=== PATIENT | male | born 1985 | race Caucasian/White ===

== ENCOUNTER 2020-04-07 20:20 | Inpatient (IN) | payer OTHER, SELFPAY ==
[2020-04-07 20:52] VITALS: BP 130/68; PULSE 84; RESP 20; TEMP 36.4; O2SAT 98; BMI 24.3
[2020-04-07 20:53] VITALS: BP 130/68; PULSE 84; RESP 20; TEMP 36.4; O2SAT 98
--- NOTE | 2020-04-07 21:01 | ED.PSYCH ---
HPI - Psych General Chief Complaint: Psychiatric Symptoms Stated Complaint: CRISIS Time Seen by Provider: 04/07/20 20:59 History of Present Illness HPI Narrative: This is a 34-year-old male who presents with complaints of suicidal ideation and has a plan that when his mother this that he wants to as well . Patient states that 3 days ago he was discharged from detox program for heroin and cocaine and then 24 hours afterwards started becoming depressed about his situation and states he was hearing voices that were verbally abusive to him and telling him to kill himself but states he is not hearing them currently. He says he is very depressed about his situation as well as the fact that his mother is quite ill. He denies any prior suicide attempts and states he has never been admitted or treated for depression. He did start using drugs again and last used 1 hour ago and reports using cocaine as well as heroin. Otherwise, he denies any fevers, chills, nausea, vomiting, abdominal pain, diarrhea, urinary pain / burning/frequency, and denies any shortness of breath, chest pain / palpitations. Related Data Allergies Allergy/AdvReac Type Severity Reaction Status Date / Time No Known Allergies Allergy Verified 04/07/20 21:02 [No Known Allergies*] Review of Systems Review of Systems: Pertinent positives and negatives as stated in HPI 10 point review of systems is otherwise negative. PMFSH Past Medical History Source: nursing notes reviewed Medical History No known health problems Surgical History No history of previous surgery Social History Social History Advance Directives: No Advance Directives Information Provided: No Physical Exam Vital Signs: Vital Signs: Vital Signs Temp Pulse Resp BP Pulse Ox 04/08/20 06:27 97.4 F 51 16 106/38 L 97 04/07/20 23:34 98.6 F 74 16 115/72 96 04/07/20 20:53 97.6 F 84 20 130/68 98 04/07/20 20:52 97.6 F 84 20 130/68 98 Body Mass Index 24.3 VITAL SIGNS: Reviewed. GENERAL: Well developed, well nourished, in no acute distress. HEAD: Normocephalic/ 0.5 cm laceration that is greater than 24 hours. EYES: PERRLA, EOMI intact without pain, no nystagmus/pallor/icterus noted EARS: Ext canals without abnormality, TMs non-bulging and non-erythematous NOSE: Nares patent bilateral OROPHARYNX: no oral lesions noted, posterior pharynx clear and non-erythematous without noted tonsillar enlargement/erythema/exudates NECK: Supple, no adenopathy LUNGS: Normal breath sounds. No adventitious sounds or accessory muscle use. SpO2<98%> CARDIOVASCULAR: Regular rate and rhythm without noted murmurs, no JVD or lower extremity edema. ABDOMEN: Soft, non-tender, non-distended with bowel sounds. No rigidity. No guarding. No palpable masses or hernias noted MUSCULOSKELETAL: No tenderness, deformities, or effusions noted on gross inspection. EXTREMITIES: No cyanosis, clubbing or edema; Right upper extremity: There is a nonhealing exposed area to the dorsal aspect of the wrist and distal forearm that patient has continued to pick at and is missing epidermis. SKIN: Inspection of the skin reveals no rashes, ulcerations, jaundice, pallor, or petechiae. NEUROLOGIC: Alert and oriented x 4. Strength and sensation to light touch were grossly intact x 4. Course Course Course Narrative: This is a 34-year-old male with history and clinical presentation consistent with polysubstance use as well as suicidal ideation and depression. Review of all investigations is negative for any acute findings and patient is medically cleared for further evaluation by crisis. MDM - Psych Restraints Face to Face Assessment: Face to Face Assessment: Current Situation: After assessment of the patient, a review of the pertinent medical record and a discussion with nursing staff, I feel the patient requires a restrain intervention. Reaction To: [] Medical Condition: [] Behavioral State: [] Continued Need: [] Lab Data Result diagrams: 04/07/20 21:17 04/07/20 21:17 Labs: Lab Results 04/07/20 04/07/20 04/07/20 Range/Units 21:17 21:17 21:17 WBC 7.9 (4.8-10.8) X10*3/uL RBC 3.96 L (4.60-5.80) X10*6/uL Hgb 11.2 L (14.0-18.0) g/dl Hct 34.5 L (42-52) % MCV 87.1 (80-98) fL MCH 28.3 (27.0-33.0) pg MCHC 32.5 (31.0-36.0) g/dl RDW 13.6 (11.0-16.0) % Plt Count 178 (160-400) X10*3/uL MPV 11.4 (9.4-12.4) fL Immature Gran % (Auto) 0.3 (0.0-0.4) % Neut % (Auto) 62.8 (45-73) % Lymph % (Auto) 27.1 (20-40) % [place] % (Auto) 6.8 (2-11) % Eos % (Auto) 2.4 (0-4) % Baso % (Auto) 0.6 (0-2) % Lymph # (Auto) 2.2 (1.2-4.9) X10*3/uL [place] # (Auto) 0.5 (0.1-1.2) X10*3/uL Eos # (Auto) 0.2 (0.0-0.4) X10*3/uL Baso # (Auto) 0.1 (0.0-0.2) X10*3/uL Abs Immat Gran (auto) 0.02 (0.00-0.03) X10*3/uL Absolute Neuts (auto) 5.0 (2.0-8.3) X10*3/uL Absolute Nucleated RBC 0.000 (0.0-0.012) X10*3/uL Nucleated RBC % (auto) 0.0 (0.0-0.2) /100WBC Sodium 138 (135-145) mmol/L Potassium 4.4 (3.3-5.1) mmol/l Chloride 100 (96-108) mmol/L Carbon Dioxide 32 H (22-29) mmol/L Anion Gap 10 L (12-20) BUN 16 (9-16) mg/dL Creatinine 1.03 (0.5-1.4) mg/dL Estim Creat Clear Calc 104.3 Estimated GFR > 60 Random Glucose 98 (60-115) mg/dL Calcium 9.1 (8.4-10.2) mg/dL Total Bilirubin 0.4 (0.0-1.0) mg/dL AST 16 (5-37) U/L ALT 19 (0-40) U/L Alkaline Phosphatase 57 (39-117) U/L Total Protein 6.7 (6.5-8.0) g/dL Albumin 4.1 (3.5-5.0) g/dL Urine Color Urine Appearance Urine pH (5.0-8.0) Ur Specific [place] (1.005-1.025) Urine Protein (NEG-TRACE) MG/DL Urine Glucose (UA) (NEG) MG/DL Urine Ketones (NEG) MG/DL Urine Blood (NEG) Urine Nitrite (NEG) Ur Leukocyte Esterase (NEG) Urine Opiates Screen (Not Detect) Ur Barbiturates Screen (Not Detect) Ur Phencyclidine Scrn (Not Detect) Ur Amphetamines Screen (Not Detect) U Benzodiazepines Scrn (Not Detect) Urine Cocaine Screen (Not Detect) U Marijuana (THC) Screen (Not Detect) Ethyl Alcohol < 10 mg/dL 04/07/20 04/07/20 Range/Units 22:25 22:25 WBC (4.8-10.8) X10*3/uL RBC (4.60-5.80) X10*6/uL Hgb (14.0-18.0) g/dl Hct (42-52) % MCV (80-98) fL MCH (27.0-33.0) pg MCHC (31.0-36.0) g/dl RDW (11.0-16.0) % Plt Count (160-400) X10*3/uL MPV (9.4-12.4) fL Immature Gran % (Auto) (0.0-0.4) % Neut % (Auto) (45-73) % Lymph % (Auto) (20-40) % [place] % (Auto) (2-11) % Eos % (Auto) (0-4) % Baso % (Auto) (0-2) % Lymph # (Auto) (1.2-4.9) X10*3/uL [place] # (Auto) (0.1-1.2) X10*3/uL Eos # (Auto) (0.0-0.4) X10*3/uL Baso # (Auto) (0.0-0.2) X10*3/uL Abs Immat Gran (auto) (0.00-0.03) X10*3/uL Absolute Neuts (auto) (2.0-8.3) X10*3/uL Absolute Nucleated RBC (0.0-0.012) X10*3/uL Nucleated RBC % (auto) (0.0-0.2) /100WBC Sodium (135-145) mmol/L Potassium (3.3-5.1) mmol/l Chloride (96-108) mmol/L Carbon Dioxide (22-29) mmol/L Anion Gap (12-20) BUN (9-16) mg/dL Creatinine (0.5-1.4) mg/dL Estim Creat Clear Calc Estimated GFR Random Glucose (60-115) mg/dL Calcium (8.4-10.2) mg/dL Total Bilirubin (0.0-1.0) mg/dL AST (5-37) U/L ALT (0-40) U/L Alkaline Phosphatase (39-117) U/L Total Protein (6.5-8.0) g/dL Albumin (3.5-5.0) g/dL Urine Color YELLOW Urine Appearance CLEAR Urine pH 6.0 (5.0-8.0) Ur Specific [place] 1.020 (1.005-1.025) Urine Protein NEG (NEG-TRACE) MG/DL Urine Glucose (UA) NEG (NEG) MG/DL Urine Ketones NEG (NEG) MG/DL Urine Blood NEG (NEG) Urine Nitrite NEG (NEG) Ur Leukocyte Esterase NEG (NEG) Urine Opiates Screen POSITIVE H (Not Detect) Ur Barbiturates Screen Not Detected (Not Detect) Ur Phencyclidine Scrn Not Detected (Not Detect) Ur Amphetamines Screen Not Detected (Not Detect) U Benzodiazepines Scrn Not Detected (Not Detect) Urine Cocaine Screen POSITIVE H (Not Detect) U Marijuana (THC) Screen POSITIVE H (Not Detect) Ethyl Alcohol mg/dL
[2020-04-07 21:22] LABS: MANUAL DIFF FLAG NO
--- NOTE | 2020-04-07 21:24 | PC.NURSE ---
Patient triaged, endorses SI without plan, provider saw the patient, ordered labs/crises consult/no new order for open skin on top of right hand, labs drawn/patient compliant/sent to lab pending result. Patient unable to provide urine sample at this time, agreed to notify staff if he has to use bathroom, N faxed called/spoke with Kayla/confirmed receipt of referral, no ETA. Patient snacked heavily, currently in his room watching TV, denied distress. Will continue to monitor.
[2020-04-07 21:29] LABS: Basophils Absolute Auto 0.1 X10*3/uL (0.0-0.2); Basophils Percent Auto 0.6 % (0-2); Eosinophils Absolute Auto 0.2 X10*3/uL (0.0-0.4); Eosinophils Percent Auto 2.4 % (0-4); Hematocrit 34.5 % (42-52); Hemoglobin 11.2 g/dl (14.0-18.0); Imm Gran Abs Auto 0.02 X10*3/uL (0.00-0.03); Imm Gran Pct Auto 0.3 % (0.0-0.4); Lymphocytes Absolute Auto 2.2 X10*3/uL (1.2-4.9); Lymphocytes Percent Auto 27.1 % (20-40); Mean Corpuscular HGB Conc 32.5 g/dl (31.0-36.0); Mean Corpuscular Hemoglobin 28.3 pg (27.0-33.0); Mean Corpuscular Volume 87.1 fL (80-98); Mean Platelet Volume 11.4 fL (9.4-12.4); Monocytes Absolute Auto 0.5 X10*3/uL (0.1-1.2); Monocytes Percent Auto 6.8 % (2-11); Neutrophils Percent Auto 62.8 % (45-73); Platelet Count 178 X10*3/uL (160-400); Red Blood Count 3.96 X10*6/uL (4.60-5.80); Red Cell Distribution Width 13.6 % (11.0-16.0); White Blood Count 7.9 X10*3/uL (4.8-10.8)
[2020-04-07 21:50] LABS: Ethanol < 10 mg/dL
[2020-04-07 21:52] LABS: Alanine Aminotransferase 19 U/L (0-40); Albumin Level 4.1 g/dL (3.5-5.0); Alkaline Phosphatase 57 U/L (39-117); Anion Gap 10 (12-20); Aspartate Amino Transferase 16 U/L (5-37); Bilirubin Total 0.4 mg/dL (0.0-1.0); Blood Urea Nitrogen 16 mg/dL (9-16); Calcium 9.1 mg/dL (8.4-10.2); Carbon Dioxide 32 mmol/L (22-29); Chloride 100 mmol/L (96-108); Creatinine Clr Calc Pharmacy 104.3; Estimated Glomerular Filt Rate > 60; Glucose Random 98 mg/dL (60-115); Potassium 4.4 mmol/l (3.3-5.1); Sodium 138 mmol/L (135-145); Total Protein 6.7 g/dL (6.5-8.0)
[2020-04-07 22:35] LABS: Appearance Urine CLEAR; Color Urine YELLOW; Glucose Urine UA NEG (NEG); Leukocyte Esterase Urine NEG (NEG); Nitrite Urine NEG (NEG); UACC Culture Trigger NO; Urine Blood NEG (NEG); Urine Ketones NEG (NEG); Urine Protein NEG (NEG-TRACE)
[2020-04-07 23:34] VITALS: BP 115/72; PULSE 74; RESP 16; TEMP 37; O2SAT 96
[2020-04-07 23:37] LABS: Amphetamine Screen Urine Not Detected (Not Detect); Barbiturates, Urine Not Detected (Not Detect); Benzodiazepines Screen Urine Not Detected (Not Detect); Cannabinoid Screen Urine POSITIVE (Not Detect); Cocaine Screen Urine POSITIVE (Not Detect); Opiate Screen Urine POSITIVE (Not Detect); Phencyclidine Screen Urine Not Detected (Not Detect)
[2020-04-08 06:27] VITALS: BP 106/38; PULSE 51; RESP 16; TEMP 36.3; O2SAT 97
--- NOTE | 2020-04-08 06:52 | PC.NURSE ---
Report recieved. PT currently sleeping, respirations even and unlabored, in no apparent distress. Breakfast at bedside. Pt waiting to be seen by N.
[2020-04-08 09:10] VITALS: BP 100/67; PULSE 51; RESP 18; O2SAT 96
--- NOTE | 2020-04-08 11:14 | PC.NURSE ---
[facility] at bedside for eval.
[2020-04-08] MEDS: LORazepam 1 MG TABLET PO (13:55)
--- NOTE | 2020-04-08 15:26 | PC.NURSE ---
Pt currently resting in bed, no complaints at this time. Continues to be a section 12 bedsearch.
[2020-04-08 17:29] VITALS: BP 100/50; PULSE 55; TEMP 36.5; O2SAT 100
[2020-04-08] MEDS: Buprenorphine/Naloxone 4/1 mg FILM 1 FILM SUBLINGUAL (17:30)
--- NOTE | 2020-04-08 17:36 | PC.NURSE ---
Pt requested and given suboxone for symptoms of opiate withdrawal. Currently resting in bed at this time. Continues to be a section 12 bed search.
--- NOTE | 2020-04-08 20:11 | PC.NURSE ---
Pt asleep at current. No signs of distress. Respirations even and non-labored
[2020-04-08 22:16] VITALS: BP 102/53; PULSE 50; RESP 16; TEMP 36.5; O2SAT 96
[2020-04-09 06:46] VITALS: BP 114/69; PULSE 50; RESP 16; TEMP 36.6; O2SAT 96
--- NOTE | 2020-04-09 07:09 | PC.NURSE ---
Report recieved. Pt currently sleeping, respirations even and unlabored, in no apparent distress. Pt is inpatient bedsearch.
[2020-04-09 09:24] VITALS: BP 103/51; PULSE 49; RESP 16; O2SAT 99
--- NOTE | 2020-04-09 09:34 | MHC.CARE ---
Addiction Consult Service note: Patient presented to [facility] ED due to depression. Patient reports recent opiate use and requested Suboxone while awaiting an inpatient psychiatric bed. Patient is homeless however reports an a desire to continue with the Suboxone after he is done with treatment. This sign writer letterer or painter provided patient with information on the [facility] and [facility].
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
[2020-04-09 17:18] VITALS: BP 123/70; PULSE 45; RESP 16; TEMP 36.3; O2SAT 96
[2020-04-09] MEDS: Buprenorphine/Naloxone 4/1 mg FILM 1 FILM SUBLINGUAL (18:50)
--- NOTE | 2020-04-09 19:15 | PC.NURSE ---
Report received. PT is resting in his room. Calm and cooperative. No other complaints.
[2020-04-09 21:51] VITALS: BP 122/64; PULSE 45; RESP 16; TEMP 36.1; O2SAT 96
--- NOTE | 2020-04-09 21:53 | PC.NURSE ---
PT is sleeping in bed. Breathing is even and unlabored.
--- NOTE | 2020-04-09 23:43 | PC.NURSE ---
PT is sleeping in bed. Breathing is even and unlabored. Inpatient bed search.
[2020-04-09 23:52] VITALS: RESP 17
--- NOTE | 2020-04-10 | ECG_ITS ---
Test Reason : CRISIS Blood Pressure : / mmHG Vent. Rate : 057 BPM Atrial Rate : 057 BPM P-R Int : 124 ms QRS Dur : 090 ms QT Int : 452 ms P-R-T Axes : 040 015 027 degrees QTc Int : 439 ms Sinus bradycardia Otherwise normal ECG When compared with ECG of 07-FEB-2020 02:21, T wave amplitude has increased in Anterior leads Referred By: Kaylan Erickson Electronically Signed By:NELIA CASANOVA MD
[2020-04-10 06:44] VITALS: BP 94/41; PULSE 47; RESP 16; TEMP 36.7; O2SAT 96
--- NOTE | 2020-04-10 07:02 | PC.NURSE ---
pt resting in bed att, rr appear even unlabored. wctm.
[2020-04-10 09:08] VITALS: BP 106/54; PULSE 50; RESP 16; TEMP 36.9; O2SAT 96
[2020-04-10 10:47] LABS: SARS COV2 PCR INHOUSE NEGATIVE (Negative)
--- NOTE | 2020-04-10 12:50 | PC.NURSE ---
pt ambulating to and from bathroom w steady gait. requesting milk with his lunch, provided.
[2020-04-10] MEDS: Buprenorphine/Naloxone 8/2 mg FILM 1 FILM SUBLINGUAL (14:21)
--- NOTE | 2020-04-10 14:23 | PC.NURSE ---
pt given suboxone per request. wctm for effect
--- NOTE | 2020-04-10 18:35 | MHC.CARE ---
CARE team met with this patient in ED pod bed 3 to facilitate transfer/admission to . Patient is being admitted voluntarily and signed CV.
--- NOTE | 2020-04-10 21:03 | PC.ADMIT ---
pt arrived on m5 unit [place] [facility] [place] at 18:31. pt is a 34 year old who reported increased depression and SI with plan. During admit pt appeared depressed with flat affect. Pt khoi a CV status. pt is covid - utox positive for opiates, marijuana and cocaine. pt reported SI with a plan to continue taking substance. 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 pt does not have any outpt services in the community. pt reported that his main goal is to get clean. Pt reported having thoughts of SI and hearing voices. DR Gisell Garcia called for orders and notified of admission. PT on 15 min safety checks. pt has a wound on his RT forearm and with drainage. pt will have an order for dressing changes. Start treatment and monitor for safety.
[2020-04-11] MEDS: Buprenorphine/Naloxone 8/2 mg TAB.SUBL 1 TAB SUBLINGUAL (09:00)
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
[2020-04-11 11:21] VITALS: BP 102/55; PULSE 43
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
[2020-04-11 18:00] VITALS: BP 95/51; PULSE 56; TEMP 36.3
[2020-04-11] MEDS: traZODone HCL 50 MG TABLET 25 MG PO (20:06)
[2020-04-11] MEDS: hydrOXYzine HCL 25 MG TABLET PO (20:07)
[2020-04-11] MEDS: Silver Sulfadiazine 1 % Cream 20 GM TUBE 1 APPL TOPICAL (20:08)
[2020-04-12 07:32] VITALS: BP 88/44; PULSE 48; TEMP 35.7
[2020-04-12] MEDS: Nicotine 21 MG PATCH.TD24 TRANSDERMA (08:33)
[2020-04-12] MEDS: Buprenorphine/Naloxone 4/1 mg FILM 1 FILM SUBLINGUAL (08:33)
[2020-04-12] MEDS: Silver Sulfadiazine 1 % Cream 20 GM TUBE 1 APPL TOPICAL (09:12)
--- NOTE | 2020-04-12 10:56 | P.PNPSI_ITS ---
Subjective Subjective Date of Service: 04/12/20 Reason For Visit: SI, depression, Subjective Notes: Conditional Voluntary Interim History: pt very upset about reduction in suboxone and change in schedule of doses ( doses spread out throughout the day due to low HR) Pt states his HR is always low and has been for years. Hospitalist consult yesterday noted bradycardai and plan to monitor. He reports depressed mood, anxiety, panic attacks and difficulty sleeping at night. He reports low self esteem and recurrent SI for years. He states when he tried to maintain abstinence that he struggles with SI. He would like to go back to [facility] where he achieved his longest sobriety of 7 months. He agrees to trial of zyrexa for voices, anxiety,depression, and sleep Medication Compliance: Yes Side effects from medications: No Attending Groups: No Review of Systems Review of Systems Denies any recent fever chills or decrease in appetite respiratory denies any shortness of breath coverage production cardiovascular is adjustment of any PND or edema gastrointestinal denies any dysphagia abdominal pain nausea vomiting or diarrhea genitourinary denies any dysuria frequency or hematuria musculoskeletal denies any joint pain or swelling neuropsych denies any weakness or seizures skin wound to right wrist stage II all other systems reviewed are negative Mental Status Exam Mental Status Exam Patient Appearance: Disheveled and Unkempt Patient Orientation: Person and Situation Level of Consciousness: Appropriate and Drowsy Patient Behavior: Avoidant, Isolative and Poor Eye Contact Mood Description: Apathetic, Suspicious, Depressed and Flat Affect Description: Withdrawn and Flat Patient Cognition Impaired: Yes Ability to Follow Directions: Fair Speech Pattern: Impoverished, Monotone and Mumbled Hallucinations: Auditory and Command Perceptual Disturbances: Hallucinations Thought Process: Slowed Thinking Thought Content: positive for Poverty of Content, positive for Slowed Thinking and positive for Suicidal Ideation Depressive Symptoms: Insomnia, Diff. Making Decisions, Difficulty Sleeping, Loss of Int. in Activity, Feelings of Worthlessness, Hopelessness, Increased Fatigue, Thoughts of /Suicide and Loss of Energy Abnormal Motor Activity Signs and Symptoms: Psychomotor Retardation Judgement: Poor Diagnostics Vital Signs (24Hr): Vital Signs - 24 hr 04/11/20 11:21 04/11/20 18:00 04/12/20 07:32 Temperature 97.3 F 96.2 F L Pulse Rate 43 L 56 48 L Blood Pressure 102/55 L 95/51 L 88/44 L Body Mass Index 24.3 Labs Results: 04/07/20 21:17 04/07/20 21:17 Medications Medications Current Medications Generic Name Dose Route Start Last Admin Trade Name Roel PRN Reason Stop Dose Admin Acetaminophen 650 mg 04/10/20 20:11 Acetaminophen 325 Mg Tablet PO Q6H PRN Headache/Pain Mild Scale (1-3) Buprenorphine/Naloxone 1 film 04/12/20 09:00 04/12/20 08:33 Buprenorphine/Naloxone 4/1 Mg Film SUBLINGUAL 1 film DAILY SETH Administration Buprenorphine/Naloxone 1 film 04/12/20 10:53 Buprenorphine/Naloxone 2/0.5mg Film SUBLINGUAL 04/12/20 10:54 ONCE ONE Hydroxyzine HCl 25 mg 04/10/20 20:11 04/11/20 20:07 Hydroxyzine Hcl 25 Mg Tablet PO 25 mg BEDTIME PRN Administration Anxiety Magnesium Hydroxide 30 ml 04/10/20 20:11 Milk Of Magnesia 30 Ml Oral.Susp PO DAILY PRN Constipation Nicotine 21 mg 04/12/20 09:00 04/12/20 08:33 Nicotine 21 Mg Patch.Td24 TRANSDERMA 21 mg DAILY SETH Administration Nicotine Polacrilex 4 mg 04/11/20 19:10 04/11/20 19:24 Nicotine Polacrilex 4 Mg Lozenge BUCCAL 4 mg Q2H PRN Administration Nicotine Cravings Silver Sulfadiazine 1 appl 04/11/20 21:00 04/12/20 09:12 Silver Sulfadiazine 1 % Cream 20 Gm Tube TOPICAL 1 appl BID SETH Administration Trazodone HCl 25 mg 04/11/20 16:39 04/11/20 20:06 Trazodone Hcl 50 Mg Tablet PO 25 mg BEDTIME PRN Administration Insomnia Allergies Allergies Allergy/AdvReac Type Severity Reaction Status Date / Time No Known Allergies Allergy Verified 04/07/20 21:02 [No Known Allergies*] Assessment & Plan Assessment & Plan (1) Auditory hallucination: Status: Acute Code(s): R44.0 - Auditory hallucinations (2) Suicidal ideation: Status: Acute Code(s): R45.851 - Suicidal ideations (3) Wound, open, wrist: Status: Acute Code(s): S61.509A - Unspecified open wound of unspecified wrist, initial encounter (4) Depressed: Qualifiers: Depression Type: unspecified Qualified Code(s): F32.9 - Major depre ssive disorder, single episode, unspecified Status: Acute Code(s): F32.9 - Major depressive disorder, single episode, unspecified (5) Opiate addiction: Status: Acute Code(s): F11.20 - Opioid dependence, uncomplicated Assessment and Plan: change suboxone back to 8mg/2mg daily at 0900 add zyprexa 2.5 mg at HS for voices, anxiety, sleep monitor vitals including heart rate consider cardiology consult continue current treatment plan Greater than 50% of the session was spent on counseling and/or coordination of care Patient educated on: diagnosis and medication risk/benefits Informed Consent: does not understand Reason for contiued inpatient stay Substantial Risk for: inability to function and med/psych decompensation Greater than 50% of the session was spent on counseling and/or coordination of care
[2020-04-12] MEDS: Buprenorphine/Naloxone 2/0.5mg FILM 1 FILM SUBLINGUAL ×2 (12:26→15:44)
[2020-04-12 18:00] VITALS: BP 122/68; PULSE 60; TEMP 37
[2020-04-12] MEDS: traZODone HCL 50 MG TABLET 25 MG PO (20:38)
[2020-04-12] MEDS: hydrOXYzine HCL 25 MG TABLET PO (20:40)
[2020-04-12] MEDS: OLANZapine 2.5 MG TABLET PO (20:40)
[2020-04-13 06:20] VITALS: BP 93/51; PULSE 50; RESP 18; TEMP 36.6
[2020-04-13] MEDS: Nicotine 21 MG PATCH.TD24 TRANSDERMA (09:16)
[2020-04-13] MEDS: Buprenorphine/Naloxone 8/2 mg FILM 1 FILM SUBLINGUAL (09:17)
--- NOTE | 2020-04-13 09:32 | HO.PSYCHPN ---
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 He did indicate that the changes in his medication is helpful and that he feels safer. He did not appear to be in WD. He reports that he wants to go to a [facility]. The wound on his arm is being monitored by hospitalist service. Wound consult is being considered. VS are improving. He is no longer bradycardic or hypotensive. Medication Compliance: Yes Side effects from medications: No Attending Groups: No Review of Systems Acute medical concerns: No Medical Review of Systems: unchanged Mental Status Exam Mental Status Exam Patient Appearance: Disheveled and Unkempt Patient Orientation: Person and Situation Level of Consciousness: Appropriate and Drowsy Patient Behavior: Avoidant, Isolative, Uncooperative and Poor Eye Contact Mood Description: Apathetic, Suspicious, Depressed and Flat Affect Description: Withdrawn and Flat Patient Cognition Impaired: Yes Ability to Follow Directions: Fair Speech Pattern: Impoverished, Monotone and Mumbled Hallucinations: Auditory and Command Delusions: Not Present Perceptual Disturbances: Hallucinations Thought Process: Distracted, Rumination and Slowed Thinking Thought Content: positive for Circumstantial, positive for Poverty of Content, positive for Slowed Thinking, positive for Suicidal Ideation and negative for Homicidal Ideation Depressive Symptoms: Insomnia, Diff. Making Decisions, Difficulty Sleeping, Loss of Int. in Activity, Feelings of Worthlessness, Hopelessness, Increased Fatigue, Thoughts of /Suicide and Loss of Energy Abnormal Motor Activity Signs and Symptoms: Psychomotor Retardation Judgement: Poor Diagnostics Vital Signs (24Hr): Vital Signs - 24 hr 04/12/20 18:00 04/13/20 06:20 Temperature 98.6 F 97.9 F Pulse Rate 60 50 Respiratory Rate 18 Blood Pressure 122/68 93/51 L Body Mass Index 24.3 Labs Results: 04/07/20 21:17 04/07/20 21:17 Medications Medications Current Medications Generic Name Dose Route Start Last Admin Trade Name Freq PRN Reason Stop Dose Admin Acetaminophen 650 mg 04/10/20 20:11 Acetaminophen 325 Mg Tablet PO Q6H PRN Headache/Pain Mild Scale (1-3) Buprenorphine/Naloxone 1 film 04/13/20 09:00 04/13/20 09:17 Buprenorphine/Naloxone 8/2 Mg Film SUBLINGUAL 1 film DAILY SETH Administration Hydroxyzine HCl 25 mg 04/12/20 14:10 04/12/20 20:40 Hydroxyzine Hcl 25 Mg Tablet PO 25 mg BID PRN Administration Anxiety Magnesium Hydroxide 30 ml 04/10/20 20:11 Milk Of Magnesia 30 Ml Oral.Susp PO DAILY PRN Constipation Naloxone HCl 4 mg 04/13/20 09:31 Naloxone Hcl Nasal Take Home 4 Mg [place] NOSTRILALT 04/13/20 09:32 ONCE ONE Nicotine 21 mg 04/12/20 09:00 04/13/20 09:16 Nicotine 21 Mg Patch.Td24 TRANSDERMA 21 mg DAILY SETH Administration Nicotine Polacrilex 4 mg 04/11/20 19:10 04/11/20 19:24 Nicotine Polacrilex 4 Mg Lozenge BUCCAL 4 mg Q2H PRN Administration Nicotine Cravings Olanzapine 2.5 mg 04/12/20 21:00 04/12/20 20:40 Olanzapine 2.5 Mg Tablet PO 2.5 mg BEDTIME SETH Administration Silver Sulfadiazine 1 appl 04/11/20 21:00 04/12/20 19:47 Silver Sulfadiazine 1 % Cream 20 Gm Tube TOPICAL Not Given BID SETH Trazodone HCl 25 mg 04/11/20 16:39 04/12/20 20:38 Trazodone Hcl 50 Mg Tablet PO 25 mg BEDTIME PRN Administration Insomnia Allergies Allergies Allergy/AdvReac Type Severity Reaction Status Date / Time No Known Allergies Allergy Verified 04/07/20 21:02 [No Known Allergies*] Assessment & Plan Assessment & Plan (1) Opiate addiction: Qualifiers: Substance use status: with unspecified opioid-induced disorder Qualified Code(s): F11.29 - Opioid dependence with unspecified opioid-induced disorder Status: Acute Code(s): F11.20 - Opioid dependence, uncomplicated (2) Wound, open, wrist: Qualifiers: Encounter type: subsequent encounter Laterality: left Qualified Code(s): S61.502D - Unspecified open wound of left wrist, subsequent encounter Status: Acute Code(s): S61.509A - Unspecified open wound of unspecified wrist, initial encounter (3) Suicidal ideation: Status: Acute Code(s): R45.851 - Suicidal ideations Assessment and Plan: CT current medications Consider wound consult Refer to CSS when stable Greater than 50% of the session was spent on counseling and/or coordination of care Patient educated on: diagnosis and medication risk/benefits Informed Consent: does not understand Reason for contiued inpatient stay Substantial Risk for: harm to self, inability to function and rapid decompensation
[2020-04-13] MEDS: Silver Sulfadiazine 1 % Cream 20 GM TUBE 1 APPL TOPICAL ×2 (09:52→23:36)
[2020-04-13] MEDS: Naloxone HCl Nasal TAKE HOME 4 MG SPRAY NOSTRILALT (13:53)
[2020-04-13 17:15] VITALS: BP 109/59; PULSE 60; TEMP 36.8
[2020-04-13] MEDS: OLANZapine 2.5 MG TABLET PO (23:11)
[2020-04-13] MEDS: hydrOXYzine HCL 25 MG TABLET PO (23:11)
[2020-04-13] MEDS: traZODone HCL 50 MG TABLET 25 MG PO (23:11)
[2020-04-13 23:40] VITALS: TEMP 36.5
--- NOTE | 2020-04-14 00:19 | PC.NURSE ---
Pt has a wound on his right forearm that is visibly red and slight purulent discharge. Since application of the silverdine it was noted that it has since gotten inflamed on the outer edges and this was observed by t/w as well. Pt reports that it feels numb and rates the pain a 4/10. Hospitalist was notified- pending further instruction. Wound was cleaned with NS and Xeroform petroleum was placed and wrapped. Pt is afebrile with a temp of 97.7. Charge nurse notified.
[2020-04-14 06:25] VITALS: BP 95/54; PULSE 51; RESP 14; TEMP 36; O2SAT 98
[2020-04-14] MEDS: Buprenorphine/Naloxone 8/2 mg FILM 1 FILM SUBLINGUAL (08:57)
[2020-04-14] MEDS: Nicotine 21 MG PATCH.TD24 TRANSDERMA (08:58)
[2020-04-14] MEDS: Silver Sulfadiazine 1 % Cream 20 GM TUBE 1 APPL TOPICAL (10:05)
--- NOTE | 2020-04-14 10:26 | HO.PSYCHPN ---
Subjective Subjective Reason For Visit: SI, depression, Interim History: patient withdrawn irritable lethargic. States he did not sleep the night before does not appear to be in withdrawal complains of auditory hallucinations denies active self-harm mostly not willing to engage in conversation isolative and withdrawn Mental Status Exam Mental Status Exam Patient Appearance: Disheveled and Unkempt Patient Orientation: Person and Situation Level of Consciousness: Appropriate and Drowsy Patient Behavior: Avoidant, Isolative, Uncooperative and Poor Eye Contact Mood Description: Apathetic, Suspicious, Depressed and Flat Affect Description: Withdrawn and Flat Patient Cognition Impaired: Yes Ability to Follow Directions: Fair Speech Pattern: Impoverished, Monotone and Mumbled Hallucinations: Auditory Thought Content: negative for Suicidal Ideation and negative for Homicidal Ideation Depressive Symptoms: Difficulty Sleeping, Increased Fatigue, Loss of Energy and Difficulty Concentrating Judgement: Fair Diagnostics Vital Signs (24Hr): Vital Signs - 24 hr 04/13/20 17:15 04/13/20 23:40 04/14/20 06:25 Temperature 98.3 F 97.7 F 96.8 F Pulse Rate 60 51 Respiratory Rate 14 Blood Pressure 109/59 L 95/54 L Pulse Oximetry 98 Body Mass Index 24.3 Labs Results: 04/07/20 21:17 04/07/20 21:17 Medications Medications Current Medications Generic Name Dose Route Start Last Admin Trade Name Freq PRN Reason Stop Dose Admin Acetaminophen 650 mg 04/10/20 20:11 Acetaminophen 325 Mg Tablet PO Q6H PRN Headache/Pain Mild Scale (1-3) Buprenorphine/Naloxone 1 film 04/13/20 09:00 04/14/20 08:57 Buprenorphine/Naloxone 8/2 Mg Film SUBLINGUAL 1 film DAILY SETH Administration Hydroxyzine HCl 25 mg 04/12/20 14:10 04/13/20 23:11 Hydroxyzine Hcl 25 Mg Tablet PO 25 mg BID PRN Administration Anxiety Magnesium Hydroxide 30 ml 04/10/20 20:11 Milk Of Magnesia 30 Ml Oral.Susp PO DAILY PRN Constipation Nicotine 21 mg 04/12/20 09:00 04/14/20 08:58 Nicotine 21 Mg Patch.Td24 TRANSDERMA 21 mg DAILY SETH Administration Nicotine Polacrilex 4 mg 04/11/20 19:10 04/11/20 19:24 Nicotine Polacrilex 4 Mg Lozenge BUCCAL 4 mg Q2H PRN Administration Nicotine Cravings Olanzapine 2.5 mg 04/12/20 21:00 04/13/20 23:11 Olanzapine 2.5 Mg Tablet PO 2.5 mg BEDTIME SETH Administration Silver Sulfadiazine 1 appl 04/11/20 21:00 04/14/20 10:05 Silver Sulfadiazine 1 % Cream 20 Gm Tube TOPICAL 1 appl BID SETH Administration Trazodone HCl 25 mg 04/11/20 16:39 04/13/20 23:11 Trazodone Hcl 50 Mg Tablet PO 25 mg BEDTIME PRN Administration Insomnia Allergies Allergies Allergy/AdvReac Type Severity Reaction Status Date / Time No Known Allergies Allergy Verified 04/07/20 21:02 [No Known Allergies*] Assessment & Plan Assessment & Plan (1) Opiate addiction: Qualifiers: Substance use status: with unspecified opioid-induced disorder Qualified Code(s): F11.29 - Opioid dependence with unspecified opioid-induced disorder Status: Acute Code(s): F11.20 - Opioid dependence, uncomplicated (2) Wound, open, wrist: Qualifiers: Encounter type: subsequent encounter Laterality: left Qualified Code(s): S61.502D - Unspecified open wound of left wrist, subsequent encounter Status: Acute Code(s): S61.509A - Unspecified open wound of unspecified wrist, initial encounter (3) Suicidal ideation: Status: Acute Code(s): R45.851 - Suicidal ideations Assessment and Plan: increase Zyprexa to 5 mg at bedtime. Wound care consult CSS referral Greater than 50% of the session was spent on counseling and/or coordination of care
[2020-04-14] MEDS: hydrOXYzine HCL 25 MG TABLET PO ×2 (16:57→21:26)
[2020-04-14 18:00] VITALS: BP 122/86; PULSE 71; TEMP 37.1
[2020-04-14] MEDS: OLANZapine 2.5 MG TABLET 5 MG PO (21:12)
[2020-04-14] MEDS: traZODone HCL 50 MG TABLET 25 MG PO (21:13)
[2020-04-15 07:10] VITALS: BP 97/55; PULSE 57; RESP 16; TEMP 35.9; O2SAT 98
[2020-04-15] MEDS: Nicotine 21 MG PATCH.TD24 TRANSDERMA (08:23)
[2020-04-15] MEDS: Buprenorphine/Naloxone 8/2 mg FILM 1 FILM SUBLINGUAL (08:24)
--- NOTE | 2020-04-15 13:47 | PC.NURSE ---
Pt refused flu shot vaccine.
--- NOTE | 2020-04-15 14:24 | P.PNPSI_ITS ---
Subjective Subjective Date of Service: 04/15/20 Reason For Visit: SI, depression, Subjective Notes: Conditional Voluntary Interim History: Neri was more engaged. He is complaining of being more anxious and not sleeping. He has been interested in [email or web address], or a [employer] Medication Compliance: Yes Side effects from medications: No Attending Groups: No Review of Systems Acute medical concerns: No Medical Review of Systems: unchanged Mental Status Exam Mental Status Exam Patient Appearance: Disheveled and Unkempt Patient Orientation: Person and Situation Level of Consciousness: Appropriate and Drowsy Patient Behavior: Avoidant, Isolative, Uncooperative and Poor Eye Contact Mood Description: Apathetic, Suspicious, Depressed and Flat Affect Description: Withdrawn and Flat Patient Cognition Impaired: Yes Ability to Follow Directions: Fair Speech Pattern: Impoverished, Monotone and Mumbled Hallucinations: Auditory Thought Content: negative for Suicidal Ideation and negative for Homicidal Ideation Depressive Symptoms: Difficulty Sleeping, Increased Fatigue, Loss of Energy and Difficulty Concentrating Judgement: Fair Diagnostics Vital Signs (24Hr): Vital Signs - 24 hr 04/14/20 18:00 04/15/20 07:10 Temperature 98.8 F 96.6 F L Pulse Rate 71 57 Respiratory Rate 16 Blood Pressure 122/86 97/55 L Pulse Oximetry 98 Body Mass Index 24.3 Labs Results: 04/07/20 21:17 04/07/20 21:17 Medications Medications Current Medications Generic Name Dose Route Start Last Admin Trade Name Freq PRN Reason Stop Dose Admin Acetaminophen 650 mg 04/10/20 20:11 Acetaminophen 325 Mg Tablet PO Q6H PRN Headache/Pain Mild Scale (1-3) Buprenorphine/Naloxone 1 film 04/13/20 09:00 04/15/20 08:24 Buprenorphine/Naloxone 8/2 Mg Film SUBLINGUAL 1 film DAILY SETH Administration Hydroxyzine HCl 50 mg 04/15/20 12:43 Hydroxyzine Hcl 25 Mg Tablet PO RQ4H PRN Anxiety Magnesium Hydroxide 30 ml 04/10/20 20:11 Milk Of Magnesia 30 Ml Oral.Susp PO DAILY PRN Constipation Nicotine 21 mg 04/12/20 09:00 04/15/20 08:23 Nicotine 21 Mg Patch.Td24 TRANSDERMA 21 mg DAILY SETH Administration Nicotine Polacrilex 4 mg 04/11/20 19:10 04/11/20 19:24 Nicotine Polacrilex 4 Mg Lozenge BUCCAL 4 mg Q2H PRN Administration Nicotine Cravings Olanzapine 10 mg 04/15/20 21:00 Olanzapine 2.5 Mg Tablet PO BEDTIME SETH Olanzapine 5 mg 04/15/20 12:41 Olanzapine 5 Mg Tablet PO Q4H PRN Anxiety Trazodone HCl 25 mg 04/11/20 16:39 04/14/20 21:13 Trazodone Hcl 50 Mg Tablet PO 25 mg BEDTIME PRN Administration Insomnia Allergies Allergies Allergy/AdvReac Type Severity Reaction Status Date / Time No Known Allergies Allergy Verified 04/07/20 21:02 [No Known Allergies*] Assessment & Plan Assessment & Plan (1) Opiate addiction: Qualifiers: Substance use status: with unspecified opioid-induced disorder Qualified Code(s): F11.29 - Opioid dependence with unspecified opioid-induced disorder Status: Acute Code(s): F11.20 - Opioid dependence, uncomplicated (2) Wound, open, wrist: Qualifiers: Encounter type: subsequent encounter Laterality: left Qualified Co de(s): S61.502D - Unspecified open wound of left wrist, subsequent encounter Status: Acute Code(s): S61.509A - Unspecified open wound of unspecified wrist, initial encounter Assessment and Plan: Increase zyprexa Refer to CSS when stable Greater than 50% of the session was spent on counseling and/or coordination of care Patient educated on: diagnosis, medication risk/benefits and substance abuse Informed Consent: further education needed Reason for contiued inpatient stay Substantial Risk for: harm to self, inability to function and rapid decompensation
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
[2020-04-15 18:00] VITALS: BP 131/59; PULSE 63; TEMP 36.7
[2020-04-15] MEDS: traZODone HCL 50 MG TABLET 25 MG PO (20:44)
[2020-04-15] MEDS: hydrOXYzine HCL 25 MG TABLET 50 MG PO (20:46)
[2020-04-15] MEDS: OLANZapine 2.5 MG TABLET 10 MG PO (20:47)
[2020-04-15] MEDS: QUEtiapine Fumarate 100 MG TABLET PO (22:46)
[2020-04-16 07:00] VITALS: BP 107/56; PULSE 55; RESP 16; TEMP 37; BMI 27.8
[2020-04-16] MEDS: Buprenorphine/Naloxone 8/2 mg FILM 1 FILM SUBLINGUAL (09:24)
[2020-04-16] MEDS: Nicotine 21 MG PATCH.TD24 TRANSDERMA (09:24)
--- NOTE | 2020-04-16 09:36 | P.PNPSI_ITS ---
Subjective Subjective Date of Service: 04/16/20 Reason For Visit: SI, depression, Subjective Notes: Conditional Voluntary Interim History: Neri was more engaged. He is complaining of being more anxious and not sleeping. He did not find the zyprexa helpful. We agreed to switch to seroquel. He has been interested in [employer], or a CSS He was seen my Dr. Hurst, who recommends a skin graft. Medication Compliance: Yes Side effects from medications: No Attending Groups: No Review of Systems Acute medical concerns: No Medical Review of Systems: unchanged Mental Status Exam Mental Status Exam Patient Appearance: Disheveled and Unkempt Patient Orientation: Person and Situation Level of Consciousness: Appropriate and Drowsy Patient Behavior: Avoidant, Isolative, Uncooperative and Poor Eye Contact Mood Description: Apathetic, Suspicious, Depressed and Flat Affect Description: Withdrawn and Flat Patient Cognition Impaired: Yes Ability to Follow Directions: Fair Speech Pattern: Impoverished, Monotone and Mumbled Memory Description: Intact Hallucinations: Auditory Delusions: Not Present Thought Process: Distracted and Rumination Thought Content: positive for Obsessional Thoughts, positive for Perseveration, positive for Preoccupation, negative for Suicidal Ideation and negative for Ho micidal Ideation Depressive Symptoms: Difficulty Sleeping, Increased Fatigue, Loss of Energy and Difficulty Concentrating Judgement: Fair Diagnostics Vital Signs (24Hr): Vital Signs - 24 hr 04/15/20 18:00 04/16/20 07:00 Temperature 98.1 F 98.6 F Pulse Rate 63 55 Respiratory Rate 16 Blood Pressure 131/59 L 107/56 L Body Mass Index 24.3 Labs Results: 04/07/20 21:17 04/07/20 21:17 Medications Medications Current Medications Generic Name Dose Route Start Last Admin Trade Name Freq PRN Reason Stop Dose Admin Acetaminophen 650 mg 04/10/20 20:11 Acetaminophen 325 Mg Tablet PO Q6H PRN Headache/Pain Mild Scale (1-3) Buprenorphine/Naloxone 1 film 04/13/20 09:00 04/16/20 09:24 Buprenorphine/Naloxone 8/2 Mg Film SUBLINGUAL 1 film DAILY SETH Administration Hydroxyzine HCl 50 mg 04/15/20 12:43 04/15/20 20:46 Hydroxyzine Hcl 25 Mg Tablet PO 50 mg RQ4H PRN Administration Anxiety Magnesium Hydroxide 30 ml 04/10/20 20:11 Milk Of Magnesia 30 Ml Oral.Susp PO DAILY PRN Constipation Nicotine 21 mg 04/12/20 09:00 04/16/20 09:24 Nicotine 21 Mg Patch.Td24 TRANSDERMA 21 mg DAILY SETH Administration Nicotine Polacrilex 4 mg 04/11/20 19:10 04/11/20 19:24 Nicotine Polacrilex 4 Mg Lozenge BUCCAL 4 mg Q2H PRN Administration Nicotine Cravings Olanzapine 10 mg 04/15/20 21:00 04/15/20 20:47 Olanzapine 2.5 Mg Tablet PO 10 mg BEDTIME SETH Administration Olanzapine 5 mg 04/15/20 12:41 Olanzapine 5 Mg Tablet PO Q4H PRN Anxiety Quetiapine Fumarate 100 mg 04/15/20 22:35 04/15/20 22:46 Quetiapine Fumarate 100 Mg Tablet PO 100 mg BEDTIME PRN Administration Insomnia Trazodone HCl 25 mg 04/11/20 16:39 04/15/20 20:44 Trazodone Hcl 50 Mg Tablet PO 25 mg BEDTIME PRN Administration Insomnia Allergies Allergies Allergy/AdvReac Type Severity Reaction Status Date / Time No Known Allergies Allergy Verified 04/07/20 21:02 [No Known Allergies*] Assessment & Plan Assessment & Plan (1) Opiate addiction: Qualifiers: Substance use status: with unspecified opioid-induced disorder Qualified Code(s): F11.29 - Opioid dependence with unspecified opioid-induced disorder Status: Acute Code(s): F11.20 - Opioid dependence, uncomplicated (2) Suicidal ideation: Status: Acute Code(s): R45.851 - Suicidal ideations (3) Open wound of right wrist: Qualifiers: Encounter type: sequela Qualified Code(s): S61.501S - Unspecified open wound of right wrist, sequela Status: Acute Code(s): S61.501A - Unspecified open wound of right wrist, initial encounter (4) Major depressive disorder, recurrent severe without psychotic features: Status: Acute Code(s): F33.2 - Major depressive disorder, recurrent severe without psychotic features Assessment and Plan: Change to seroquel Anticipate skin graft Consider an antidepressant CT suboxone Greater than 50% of the session was spent on counseling and/or coordination of care Patient educated on: diagnosis and medication risk/benefits Informed Consent: further education needed Reason for contiued inpatient stay Substantial Risk for: inability to function and rapid decompensation
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
[2020-04-16] MEDS: QUEtiapine Fumarate 100 MG TABLET PO ×2 (14:31→18:47)
[2020-04-16 18:00] VITALS: BP 134/61; PULSE 95; TEMP 37.1
[2020-04-16] MEDS: hydrOXYzine HCL 25 MG TABLET 50 MG PO (18:09)
[2020-04-16] MEDS: traZODone HCL 50 MG TABLET 25 MG PO (20:50)
[2020-04-16] MEDS: QUEtiapine Fumarate 300 MG TABLET PO (20:50)
[2020-04-17 06:25] VITALS: BP 87/42; PULSE 56; RESP 16; TEMP 35.9; O2SAT 97
[2020-04-17] MEDS: QUEtiapine Fumarate 100 MG TABLET PO ×3 (09:29→18:19)
[2020-04-17] MEDS: Buprenorphine/Naloxone 8/2 mg FILM 1 FILM SUBLINGUAL (09:29)
[2020-04-17] MEDS: Nicotine 21 MG PATCH.TD24 TRANSDERMA (09:30)
--- NOTE | 2020-04-17 18:19 | HO.PSYCHPN ---
Subjective Subjective Date of Service: 04/17/20 Reason For Visit: SI, depression, Subjective Notes: Conditional Voluntary Interim History: Neri was more engaged. He is complaining of being more anxious and not sleeping. He has found the seroquel helpful, but still did not sleep that well. Remeron will be added given his high level of depression. He has been interested in [employer], or a CSS He was seen my Dr. Hurst, who recommends a skin graft. Medication Compliance: Yes Side effects from medications: No Attending Groups: No Review of Systems Acute medical concerns: No Medical Review of Systems: unchanged Mental Status Exam Mental Status Exam Patient Appearance: Well Grooomed Patient Orientation: Person Level of Consciousness: Alert Patient Behavior: Passive and Good Eye Contact Mood Description: Apathetic, Anxious and Apprehensive Affect Description: Apathetic, Anxious and Apprehensive Ability to Follow Directions: Fair Speech Pattern: Appropriate and Soft-Spoken Memory Description: Intact Hallucinations: None Delusions: Not Present Thought Process: Intact, Distracted and Rumination Thought Content: positive for Circumstantial, negative for Suicidal Ideation and negative for Homicidal Ideation Depressive Symptoms: Increased Anxiety, Difficulty Sleeping, Feelings of Worthlessness, Feelings of Guilt, Increased Fatigue, Thoughts of /Suicide, Low Self Esteem, Loss of Energy and Difficulty Concentrating Diagnostics Vital Signs (24Hr): Vital Signs - 24 hr 04/17/20 06:25 Temperature 96.7 F L Pulse Rate 56 Respiratory Rate 16 Blood Pressure 87/42 L Pulse Oximetry 97 Body Mass Index 27.8 Labs Results: 04/07/20 21:17 04/07/20 21:17 Medications Medications Current Medications Generic Name Dose Route Start Last Admin Trade Name Tyronq PRN Reason Stop Dose Admin Acetaminophen 650 mg 04/10/20 20:11 Acetaminophen 325 Mg Tablet PO Q6H PRN Headache/Pain Mild Scale (1-3) Buprenorphine/Naloxone 1 film 04/13/20 09:00 04/17/20 09:29 Buprenorphine/Naloxone 8/2 Mg Film SUBLINGUAL 1 film DAILY SETH Administration Hydroxyzine HCl 50 mg 04/15/20 12:43 04/16/20 18:09 Hydroxyzine Hcl 25 Mg Tablet PO 50 mg RQ4H PRN Administration Anxiety Magnesium Hydroxide 30 ml 04/10/20 20:11 Milk Of Magnesia 30 Ml Oral.Susp PO DAILY PRN Constipation Mirtazapine 15 mg 04/17/20 21:00 Mirtazapine 15 Mg Tablet PO BEDTIME SETH Nicotine 21 mg 04/12/20 09:00 04/17/20 09:30 Nicotine 21 Mg Patch.Td24 TRANSDERMA 21 mg DAILY SETH Administration Nicotine Polacrilex 4 mg 04/11/20 19:10 04/11/20 19:24 Nicotine Polacrilex 4 Mg Lozenge BUCCAL 4 mg Q2H PRN Administration Nicotine Cravings Quetiapine Fumarate 100 mg 04/16/20 14:21 04/16/20 18:47 Quetiapine Fumarate 100 Mg Tablet PO 100 mg Q4H PRN Administration Anxiety Quetiapine Fumarate 100 mg 04/17/20 08:30 04/17/20 13:16 Quetiapine Fumarate 100 Mg Tablet PO 100 mg BID@0830,1330 SETH Administration Quetiapine Fumarate 300 mg 04/16/20 21:00 04/16/20 20:50 Quetiapine Fumarate 300 Mg Tablet PO 300 mg BEDTIME SETH Administration Trazodone HCl 25 mg 04/11/20 16:39 04/16/20 20:50 Trazodone Hcl 50 Mg Tablet PO 25 mg BEDTIME PRN Administration Insomnia Allergies Allergies Allergy/AdvReac Type Severity Reaction Status Date / Time No Known Allergies Allergy Verified 04/07/20 21:02 [No Known Allergies*] Assessment & Plan Assessment & Plan (1) Opiate addiction: Qualifiers: Substance use status: with unspecified opioid-induced disorder Qualified Code(s): F11.29 - Opioid dependence with unspecified opioid-induced disorder Status: Acute Code(s): F11.20 - Opioid dependence, uncomplicated (2) Open wound of right wrist: Qualifiers: Encounter type: sequela Qualified Code(s): S61.501S - Unspecified open wound of right wrist, sequela Status: Acute Code(s): S61.501A - Unspecified open wound of right wrist, initial encounter (3) Major depressive disorder, recurrent severe without psychotic features: Status: Acute Code(s): F33.2 - Major depressive disorder, recurrent severe without psychotic features Assessment and Plan: Remains with insomnia Add remeron. CT seroquel Referrals to CSS Greater than 50% of the session was spent on counseling and/or coordination of care Patient educated on: diagnosis and medication risk/benefits Informed Consent: further education needed Reason for contiued inpatient stay Substantial Risk for: inability to function and rapid decompensation
[2020-04-17] MEDS: Mirtazapine 15 MG TABLET PO (20:33)
[2020-04-17] MEDS: QUEtiapine Fumarate 300 MG TABLET PO (20:34)
[2020-04-17] MEDS: hydrOXYzine HCL 25 MG TABLET 50 MG PO (20:36)
[2020-04-18] MEDS: QUEtiapine Fumarate 100 MG TABLET PO ×3 (01:38→13:16)
[2020-04-18] MEDS: hydrOXYzine HCL 25 MG TABLET 50 MG PO ×2 (01:38→13:16)
[2020-04-18] MEDS: traZODone HCL 50 MG TABLET 25 MG PO ×2 (01:38→22:33)
[2020-04-18 06:00] VITALS: BP 96/50; PULSE 54; RESP 18; TEMP 36.7
[2020-04-18] MEDS: Nicotine 21 MG PATCH.TD24 TRANSDERMA (08:54)
[2020-04-18] MEDS: Buprenorphine/Naloxone 8/2 mg FILM 1 FILM SUBLINGUAL (08:55)
--- NOTE | 2020-04-18 10:53 | P.PNPSI_ITS ---
Subjective Subjective Date of Service: 04/18/20 Reason For Visit: SI, depression, Subjective Notes: Conditional Voluntary Interim History: Reports despite med difficulty sleeping- and ongoing anxiety hopeless/helpless feelings some si about dc but doesn't want to - Medication Compliance: Yes Side effects from medications: No Attending Groups: Intermittent Review of Systems Review of Systems denies s/e of medications Yes all other systems are reviewed and are negative Mental Status Exam Mental Status Exam Narrative: poorly groomed, irritable Patient Appearance: Fatigued, Disheveled and Unkempt Patient Orientation: Person, Place, Time and Situation Level of Consciousness: Awake and Appropriate Patient Behavior: Appropriate and Poor Eye Contact Behavior Comments: annoyed- , lying in bed- Mood Description: Anxious and Labile Patient Cognition Impaired: No Ability to Follow Directions: Good Speech Pattern: Clear Hallucinations: None Delusions: Not Present Thought Process: Intact and Goal Oriented Thought Content: positive for Intact and positive for Goal Oriented Depressive Symptoms: Increased Irritability and Difficulty Sleeping Judgement: Fair Diagnostics Vital Signs (24Hr): Vital Signs - 24 hr 04/18/20 06:00 Temperature 98.0 F Pulse Rate 54 Respiratory Rate 18 Blood Pressure 96/50 L Body Mass Index 27.8 Labs Results: 04/07/20 21:17 04/07/20 21:17 Medications Medications Current Medications Generic Name Dose Route Start Last Admin Trade Name Tyronq PRN Reason Stop Dose Admin Acetaminophen 650 mg 04/10/20 20:11 Acetaminophen 325 Mg Tablet PO Q6H PRN Headache/Pain Mild Scale (1-3) Buprenorphine/Naloxone 1 film 04/13/20 09:00 04/18/20 08:55 Buprenorphine/Naloxone 8/2 Mg Film SUBLINGUAL 1 film DAILY SETH Administration Hydroxyzine HCl 50 mg 04/15/20 12:43 04/18/20 01:38 Hydroxyzine Hcl 25 Mg Tablet PO 50 mg RQ4H PRN Administration Anxiety Magnesium Hydroxide 30 ml 04/10/20 20:11 Milk Of Magnesia 30 Ml Oral.Susp PO DAILY PRN Constipation Mirtazapine 15 mg 04/17/20 21:00 04/17/20 20:33 Mirtazapine 15 Mg Tablet PO 15 mg BEDTIME SETH Administration Nicotine 21 mg 04/12/20 09:00 04/18/20 08:54 Nicotine 21 Mg Patch.Td24 TRANSDERMA 21 mg DAILY SETH Administration Nicotine Polacrilex 4 mg 04/11/20 19:10 04/11/20 19:24 Nicotine Polacrilex 4 Mg Lozenge BUCCAL 4 mg Q2H PRN Administration Nicotine Cravings Quetiapine Fumarate 100 mg 04/16/20 14:21 04/18/20 01:38 Quetiapine Fumarate 100 Mg Tablet PO 100 mg Q4H PRN Administration Anxiety Quetiapine Fumarate 100 mg 04/17/20 08:30 04/18/20 08:54 Quetiapine Fumarate 100 Mg Tablet PO 100 mg BID@0830,1330 SETH Administration Quetiapine Fumarate 300 mg 04/16/20 21:00 04/17/20 20:34 Quetiapine Fumarate 300 Mg Tablet PO 300 mg BEDTIME SETH Administration Trazodone HCl 25 mg 04/11/20 16:39 04/18/20 01:38 Trazodone Hcl 50 Mg Tablet PO 25 mg BEDTIME PRN Administration Insomnia Allergies Allergies Allergy/AdvReac Type Severity Reaction Status Date / Time No Known Allergies Allergy Verified 04/07/20 21:02 [No Known Allergies*] Assessment & Plan Assessment & Plan (1) Opiate addiction: Qualifiers: Substance use status: with unspecified opioid-induced disorder Qualified Code(s): F11.29 - Opioid dependence with unspecified opioid-induced disorder Status: Acute Code(s): F11.20 - Opioid dependence, uncomplicated Assessment and Plan: on suboxone, denies cravings (2) Suicidal ideation: Status: Acute Code(s): R45.851 - Suicidal ideations Assessment and Plan: no thoughts of hurting himself here, some concerns on discharge with everything he is dealing with (3) Depressed: Qualifiers: Depression Type: unspecified Qualified Code(s): F32.9 - Major depress hemal disorder, single episode, unspecified Status: Acute Code(s): F32.9 - Major depressive disorder, single episode, unspecified Assessment and Plan: inc mirtazapine, on highest pm dose of seroquel 300mg, prn seroquel and others if he is anxious in day Greater than 50% of the session was spent on counseling and/or coordination of care
[2020-04-18 19:45] VITALS: BP 106/59; PULSE 84; TEMP 36.7
[2020-04-18] MEDS: Mirtazapine 15 MG TABLET 30 MG PO (22:29)
[2020-04-18] MEDS: QUEtiapine Fumarate 300 MG TABLET PO (22:31)
[2020-04-19 06:23] VITALS: BP 105/57; PULSE 50; RESP 16; TEMP 36.9; O2SAT 97
[2020-04-19] MEDS: QUEtiapine Fumarate 100 MG TABLET PO ×2 (09:38→13:51)
[2020-04-19] MEDS: Buprenorphine/Naloxone 8/2 mg FILM 1 FILM SUBLINGUAL (09:39)
[2020-04-19] MEDS: Nicotine 21 MG PATCH.TD24 TRANSDERMA (09:39)
--- NOTE | 2020-04-19 15:01 | P.PNPSI_ITS ---
Subjective Subjective Date of Service: 04/19/20 Reason For Visit: SI, depression, Subjective Notes: Conditional Voluntary Interim History: trouble sleeping still, despite inc remeron ) -- ongoing anxiety seems sedated now mid day- reports continue si- wants to come back from surgery to get placed in jail substance program Medication Compliance: Yes Side effects from medications: No Attending Groups: No Review of Systems Acute medical concerns: Yes pending skin graft Medical Review of Systems: unchanged Review of Systems Constitutional: Reports fatigue Skin/Breast: Reports wounds Endocrine: Reports fatigue Mental Status Exam Mental Status Exam Narrative: sleeping in bed this am, Patient Appearance: Disheveled Patient Orientation: Person, Place, Time and Situation Level of Consciousness: Drowsy Patient Behavior: Appropriate Mood Description: Calm and Apathetic Affect Description: Calm and Withdrawn Patient Cognition Impaired: No Ability to Follow Directions: Fair Speech Pattern: Clear Hallucinations: None Thought Process: Intact Thought Content: positive for Intact Depressive Symptoms: Increased Anxiety and Difficulty Sleeping Judgement: Fair Diagnostics Vital Signs (24Hr): Vital Signs - 24 hr 04/18/20 19:45 04/19/20 06:23 Temperature 98.0 F 98.4 F Pulse Rate 84 50 Respiratory Rate 16 Blood Pressure 106/59 L 105/57 L Pulse Oximetry 97 Body Mass Index 27.8 Labs Results: 04/07/20 21:17 04/07/20 21:17 Medications Medications Current Medications Generic Name Dose Route Start Last Admin Trade Name Freq PRN Reason Stop Dose Admin Acetaminophen 650 mg 04/10/20 20:11 Acetaminophen 325 Mg Tablet PO Q6H PRN Headache/Pain Mild Scale (1-3) Buprenorphine/Naloxone 1 film 04/13/20 09:00 04/19/20 09:39 Buprenorphine/Naloxone 8/2 Mg Film SUBLINGUAL 1 film DAILY SETH Administration Hydroxyzine HCl 50 mg 04/15/20 12:43 04/18/20 13:16 Hydroxyzine Hcl 25 Mg Tablet PO 50 mg RQ4H PRN Administration Anxiety Magnesium Hydroxide 30 ml 04/10/20 20:11 Milk Of Magnesia 30 Ml Oral.Susp PO DAILY PRN Constipation Mirtazapine 30 mg 04/18/20 21:00 04/18/20 22:29 Mirtazapine 15 Mg Tablet PO 30 mg BEDTIME SETH Administration Nicotine 21 mg 04/12/20 09:00 04/19/20 09:39 Nicotine 21 Mg Patch.Td24 TRANSDERMA 21 mg DAILY SETH Administration Nicotine Polacrilex 4 mg 04/11/20 19:10 04/11/20 19:24 Nicotine Polacrilex 4 Mg Lozenge BUCCAL 4 mg Q2H PRN Administration Nicotine Cravings Quetiapine Fumarate 100 mg 04/16/20 14:21 04/18/20 01:38 Quetiapine Fumarate 100 Mg Tablet PO 100 mg Q4H PRN Administration Anxiety Quetiapine Fumarate 100 mg 04/17/20 08:30 04/19/20 13:51 Quetiapine Fumarate 100 Mg Tablet PO 100 mg BID@0830,1330 SETH Administration Quetiapine Fumarate 300 mg 04/16/20 21:00 04/18/20 22:31 Quetiapine Fumarate 300 Mg Tablet PO 300 mg BEDTIME SETH Administration Trazodone HCl 25 mg 04/11/20 16:39 04/18/20 22:33 Trazodone Hcl 50 Mg Tablet PO 25 mg BEDTIME PRN Administration Insomnia Allergies Allergies Allergy/AdvReac Type Severity Reaction Status Date / Time No Known Allergies Allergy Verified 04/07/20 21:02 [No Known Allergies*] Assessment & Plan Assessment & Plan (1) Opiate addiction: Qualifiers: Substance use status: with unspecified opioid-induced disorder Qualified Code(s): F11.29 - Opioid dependence with unspecified opioid-induced disorder Status: Acute Code(s): F11.20 - Opioid dependence, uncomplicated Assessment and Plan: on suboxone (2) Suicidal ideation: Status: Acute Code(s): R45.851 - Suicidal ideations Assessment and Plan: continue to monitor (3) Depressed: Qualifiers: Depression Type: unspecified Qualified Code(s): F32.9 - Major depressive disorder, single episode, unspecified Status: Acute Code(s): F32.9 - Major depressive disorder, single episode, unspecified Assessment and Plan: on higher dose of mirtazapine and seroquel (same dose) (4) Wound, open, wrist: Qualifiers: Encounter type: subsequent encounter Laterality: left Qualified Code(s): S61.502D - Unspecified open wound of left wrist, subsequent encounter Status: Acute Code(s): S61.509A - Unspecified open wound of unspecified wrist, initial encounter Assessment and Plan: pending skin graft tomorrow Greater than 50% of the session was spent on counseling and/or coordination of care
[2020-04-19 18:00] VITALS: BP 109/57; PULSE 84; TEMP 36.8
[2020-04-19] MEDS: hydrOXYzine HCL 25 MG TABLET 50 MG PO (19:37)
[2020-04-19] MEDS: Mirtazapine 15 MG TABLET 30 MG PO (20:16)
[2020-04-19] MEDS: QUEtiapine Fumarate 300 MG TABLET PO (20:17)
[2020-04-20] VITALS (8 sets, daily range): BP systolic 101–140; BP diastolic 56–79; PULSE 49–81; RESP 16–18; TEMP 36.3–37.1; O2SAT 97–100; BMI 27.2
[2020-04-20] MEDS: QUEtiapine Fumarate 100 MG TABLET PO ×2 (08:56→16:26)
--- NOTE | 2020-04-20 09:11 | P.PNPSI_ITS ---
Subjective Subjective Date of Service: 04/20/20 Reason For Visit: SI, depression, Subjective Notes: Conditional Voluntary Interim History: Neri reports that he slept better, and his anxiety is managed. He is comfortable with the plan for the skin graft today. Once this is done and care needs known, will inform [facility] so they can determine if these are viable for him Medication Compliance: Yes Side effects from medications: No Attending Groups: No Review of Systems Acute medical concerns: Yes pending skin graft Medical Review of Systems: unchanged Mental Status Exam Mental Status Exam Patient Appearance: Well Grooomed Patient Orientation: Person, Place, Time and Situation Level of Consciousness: Awake Patient Behavior: Appropriate Mood Description: Calm and Apathetic Affect Description: Calm and Withdrawn Patient Cognition Impaired: No Ability to Follow Directions: Fair Speech Pattern: Clear Memory Description: Intact Hallucinations: None Delusions: Not Present Thought Process: Intact Thought Content: positive for Intact, negative for Suicidal Ideation and negative for Homicidal Ideation Depressive Symptoms: Increased Anxiety and Difficulty Sleeping Judgement: Fair Diagnostics Vital Signs (24Hr): Vital Signs - 24 hr 04/19/20 18:00 04/20/20 06:05 Temperature 98.2 F 98.2 F Pulse Rate 84 49 L Respiratory Rate 18 Blood Pressure 109/57 L 101/56 L Body Mass Index 27.8 Labs Results: 04/07/20 21:17 04/07/20 21:17 Medications Medications Current Medications Generic Name Dose Route Start Last Admin Trade Name Freq PRN Reason Stop Dose Admin Acetaminophen 650 mg 04/10/20 20:11 Acetaminophen 325 Mg Tablet PO Q6H PRN Headache/Pain Mild Scale (1-3) Buprenorphine/Naloxone 1 film 04/13/20 09:00 04/19/20 09:39 Buprenorphine/Naloxone 8/2 Mg Film SUBLINGUAL 1 film DAILY SETH Administration Hydroxyzine HCl 50 mg 04/15/20 12:43 04/19/20 19:37 Hydroxyzine Hcl 25 Mg Tablet PO 50 mg RQ4H PRN Administration Anxiety Magnesium Hydroxide 30 ml 04/10/20 20:11 Milk Of Magnesia 30 Ml Oral.Susp PO DAILY PRN Constipation Mirtazapine 30 mg 04/18/20 21:00 04/19/20 20:16 Mirtazapine 15 Mg Tablet PO 30 mg BEDTIME SETH Administration Nicotine 21 mg 04/12/20 09:00 04/19/20 09:39 Nicotine 21 Mg Patch.Td24 TRANSDERMA 21 mg DAILY SETH Administration Nicotine Polacrilex 4 mg 04/11/20 19:10 04/11/20 19:24 Nicotine Polacrilex 4 Mg Lozenge BUCCAL 4 mg Q2H PRN Administration Nicotine Cravings Quetiapine Fumarate 100 mg 04/16/20 14:21 04/18/20 01:38 Quetiapine Fumarate 100 Mg Tablet PO 100 mg Q4H PRN Administration Anxiety Quetiapine Fumarate 100 mg 04/17/20 08:30 04/20/20 08:56 Quetiapine Fumarate 100 Mg Tablet PO 100 mg BID@0830,1330 SETH Administration Quetiapine Fumarate 300 mg 04/16/20 21:00 04/19/20 20:17 Quetiapine Fumarate 300 Mg Tablet PO 300 mg BEDTIME SETH Administration Trazodone HCl 25 mg 04/11/20 16:39 04/18/20 22:33 Trazodone Hcl 50 Mg Tablet PO 25 mg BEDTIME PRN Administration Insomnia Allergies Allergies Allergy/AdvReac Type Severity Reaction Status Date / Time No Known Allergies Allergy Verified 04/07/20 21:02 [No Known Allergies*] Assessment & Plan Assessment & Plan (1) Major depressive disorder, recurrent severe without psychotic features: Status: Acute Code(s): F33.2 - Major depressive disorder, recurrent severe without psychotic features (2) Opiate addiction: Qualifiers: Substance use status: with unspecified opioid-induced disorder Qualified Code(s): F11.29 - Opioid dependence with unspecified opioid-induced disorder Status: Acute Code(s): F11.20 - Opioid dependence, uncomplicated (3) Open wound of right wrist: Qualifiers: Encounter type: sequela Qualified Code(s): S61.501S - Unspecified open wound of right wrist, sequela Status: Acute Code(s): S61.501A - Unspecified open wound of right wrist, initial encounter Assessment and Plan: CT current medications Skin graft scheduled for noon today Refer to [facility] and [facility] Greater than 50% of the session was spent on counseling and/or coordination of care Patient educated on: diagnosis, medication risk/benefits and substance abuse Informed Consent: further education needed Reason for contiued inpatient stay Substantial Risk for: inability to function and rapid decompensation
--- NOTE | 2020-04-20 13:03 | MHC.SHP ---
Pre-Procedural Eval Section A The patient is an INPATIENT: Yes Changes since office visit: Yes Patient answered all questions; No Cold of Flu in the past 2 weeks, No New Medical Problems and No Changes in Medication The History & Physical has been completed within 30 days and I have reviewed it.: Yes Section B Chief Complaint: SI, depression, Allergies: Allergies Allergy/AdvReac Type Severity Reaction Status Date / Time No Known Allergies Allergy Verified 04/07/20 21:02 [No Known Allergies*] Plan Diagnosis/Plan: Unchanged Patient has been examined and remains a candidate for the planned procedure
--- NOTE | 2020-04-20 13:05 | PC.NURSE ---
to do shving in or room per md maurice
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
[2020-04-20] MEDS: ceFAZolin Sodium/Dextrose,Iso 2 GM/50 ML PIGGYBACK IV (13:21)
[2020-04-20] MEDS: Lactated Ringers 1,000 ML 100 ML IVCONT (13:21)
--- NOTE | 2020-04-20 14:43 | PM.OP ---
Brief Operative Note Date of procedure: 04/20/20 Pre-op diagnosis: Non-healing wound right wrist Post-op diagnosis: same Procedure: Split thickness skin graft from right thigh to right wrist Implants: none Surgeon: Wilber Hurst MD Anesthesia: GLMA Estimated blood loss (mL): 20 Pathology: none sent Condition: stable Disposition: PACU
--- NOTE | 2020-04-20 15:15 | W.PM.OPN ---
Operative Note Operative Note Narrative: Date of procedure: 04/20/20 Pre-op diagnosis: Non-healing wound right wrist Post-op diagnosis: same Procedure: Split thickness skin graft from right thigh to right wrist Indications for procedure: 34-year-old male patient with a history of infection of the right wrist status post wide debridement of the right wrist at an outside institution. Patient presents with the nonhealing wound of the right wrist [facility] Patient was felt to be a good candidate for skin graft. He presents today for split-thickness skin graft from the right thigh to the right wrist. Operative findings patient was found to have an ulcer measuring approximately 7.5 by 2 cm in the right wrist with good granulation tissue at the base. Procedure details: Patient was brought to the OR placed in a supine position. After administering general anesthesia the patient's right thigh and right wrist were prepped with Betadine and draped in a sterile fashion. A surgical time-out was called and consent confirmed. Patient received preoperative antibiotics Venodyne boots were in place. The Skinny dermatome was used to harvest the skin graft which measured 0.20 in depth harvested from the anterior thigh. The graft measured approximately 1.5 x 8 cm. This was then placed through a mesher.A Ray-Max sponge soaked in lidocaine 1% with epinephrine was then placed on the donor site for hemostasis. Attention was then directed to the right wrist were an area of granulation tissue was noted along the dorsal surface as noted above. A disposable curette was used to debride the outer layer of granulation tissue in area measuring 2 x 8 cm. The skin graft was then placed over this clean bed of granulation tissue and secured circumferentially using 4-0 Polysorb sutures. The wound was then dressed with Xeroform followed by fluffed gauze Kerlix and an Jeffrey bandage. The lidocaine soaked sponge was removed from the right thigh and is Xeroform gauze applied followed by fluffed gauze and paper tape. The patient tolerated the procedure well and was transferred to PACU in stable condition. Sponge, instrument, needle counts were reported as correct. Implants: none Surgeon: Wilber Hurst MD Anesthesia: GLMA Estimated blood loss (mL): 20 Pathology: none sent Condition: stable Disposition: PACU
--- NOTE | 2020-04-20 15:42 | PC.NURSE ---
TRANSPORTED TO [facility] AT 1240 VIA WHEELCHAIR FOR SKIN GRAFT ON RIGHT FOREARM. AREA COVERED WITH TELFA DSD THIS AM, TOLERATED WELL. NURSE TO NURSE RECEIVED FROM PACU AT 1510 S/P SKIN GRAFT. REPORT-SKIN GRAFT DONE ON RIGHT FOREARM FROM RIGHT THIGH. DSD ON RIGHT THIGH AREA AND DSD AND ABRAN WRAP ON RIGHT FOREARM. PT RETURNED TO UNIT FROM PACU AT 1540 VIA WHEELCHAIR. DENIED PAIN, AREAS COVERED AND DRESSINGS INTACT. NICODERM PATCH AND SUBOXONE HELD THIS AM PER [facility] PENDING SKIN GRAFT. RECEIVED SCHEDULED SEROQUEL THIS AM WITH SIP OF H2O. NURSE TO NURSE DONE WITH FOLLOWING SHIFT NURSE PAOLA CHRISTENSEN RN. VS [id number] 140/79 O2 SAT 98% ROOM AIR. PT REPORTED THAT HE WAS VERY HUNGRY AND DID NOT WANT SCHEDULED AM MEDS WHICH WERE HELD UNTIL AFTER HE ATE. FOLLOW-UP CARE TO BE REVIEWED VIA SURGEON'S ORDERS.
[2020-04-20] MEDS: Nicotine 21 MG PATCH.TD24 TRANSDERMA (16:26)
[2020-04-20] MEDS: Buprenorphine/Naloxone 8/2 mg FILM 1 FILM SUBLINGUAL (16:26)
[2020-04-20] MEDS: Mirtazapine 15 MG TABLET 30 MG PO (22:47)
[2020-04-20] MEDS: QUEtiapine Fumarate 300 MG TABLET PO (22:47)
[2020-04-20] MEDS: traZODone HCL 50 MG TABLET 25 MG PO (22:54)
[2020-04-20] MEDS: oxyCODONE HCl Immed Release 5 MG TABLET PO (22:58)
[2020-04-20] MEDS: hydrOXYzine HCL 25 MG TABLET 50 MG PO (22:58)
[2020-04-21 05:00] VITALS: BP 118/66; PULSE 107; RESP 16; TEMP 36.8
[2020-04-21] MEDS: hydrOXYzine HCL 25 MG TABLET 50 MG PO ×2 (05:01→20:41)
[2020-04-21] MEDS: oxyCODONE HCl Immed Release 5 MG TABLET PO ×4 (05:02→19:04)
[2020-04-21] MEDS: Nicotine 21 MG PATCH.TD24 TRANSDERMA (09:00)
[2020-04-21] MEDS: QUEtiapine Fumarate 100 MG TABLET PO ×3 (09:01→13:15)
[2020-04-21] MEDS: Buprenorphine/Naloxone 8/2 mg FILM 1 FILM SUBLINGUAL (09:30)
--- NOTE | 2020-04-21 10:46 | HO.PSYCHPN ---
Subjective Subjective Date of Service: 04/21/20 Reason For Visit: SI, depression, Subjective Notes: Conditional Voluntary Interim History: Neri reports that he is in significant pain at the site of the graft and the site of the skin harvest. He was shutdown and mildly irritable. Dr. Hurst will be looking at the sites tomorrow and will be able to advise on further care needs. From there we can make DC plans. Neri is aware that he is likely to need a halfway. Medication Compliance: Yes Side effects from medications: No Attending Groups: No Review of Systems Acute medical concerns: Yes S/P skin graft Medical Review of Systems: changed Review of Systems: Pain at graft and harvest sites Mental Status Exam Mental Status Exam Patient Appearance: Well Grooomed Patient Orientation: Person, Place, Time and Situation Level of Consciousness: Awake Patient Behavior: Appropriate and Resistive to Care Mood Description: Calm and Apathetic Affect Description: Calm and Withdrawn Patient Cognition Impaired: No Ability to Follow Directions: Fair Speech Pattern: Clear and Spontaneous Speech Memory Description: Intact Hallucinations: None Delusions: Not Present Thought Process: Intact Thought Content: positive for Intact, negative for Suicidal Ideation and negative for Homicidal Ideation Depressive Symptoms: Increased Anxiety and Difficulty Sleeping Judgement: Fair Diagnostics Vital Signs (24Hr): Vital Signs - 24 hr 04/20/20 12:59 04/20/20 14:40 04/20/20 14:45 Temperature 98.7 F 97.6 F Pulse Rate 59 81 67 Respiratory Rate 16 16 18 Blood Pressure 104/61 115/72 107/69 Pulse Oximetry 97 99 98 04/20/20 14:50 04/20/20 14:55 04/20/20 15:10 Temperature 97.6 F Pulse Rate 70 64 67 Respiratory Rate 16 18 18 Blood Pressure 111/73 127/79 111/73 Pulse Oximetry 100 100 99 04/20/20 15:56 04/21/20 05:00 Temperature 97.3 F 98.3 F Pulse Rate 80 107 H Respiratory Rate 16 16 Blood Pressure 140/79 H 118/66 Pulse Oximetry 98 Body Mass Index 27.2 Labs Results: 04/07/20 21:17 04/07/20 21:17 Medications Medications Current Medications Generic Name Dose Route Start Last Admin Trade Name Freq PRN Reason Stop Dose Admin Acetaminophen 650 mg 04/10/20 20:11 Acetaminophen 325 Mg Tablet PO Q6H PRN Headache/Pain Mild Scale (1-3) Buprenorphine/Naloxone 1 film 04/13/20 09:00 04/21/20 09:30 Buprenorphine/Naloxone 8/2 Mg Film SUBLINGUAL 1 film DAILY SETH Administration Hydroxyzine HCl 50 mg 04/15/20 12:43 04/21/20 05:01 Hydroxyzine Hcl 25 Mg Tablet PO 50 mg RQ4H PRN Administration Anxiety Magnesium Hydroxide 30 ml 04/10/20 20:11 Milk Of Magnesia 30 Ml Oral.Susp PO DAILY PRN Constipation Mirtazapine 30 mg 04/18/20 21:00 04/20/20 22:47 Mirtazapine 15 Mg Tablet PO 30 mg BEDTIME SETH Administration Nicotine 21 mg 04/12/20 09:00 04/21/20 09:00 Nicotine 21 Mg Patch.Td24 TRANSDERMA 21 mg DAILY SETH Administration Nicotine Polacrilex 4 mg 04/11/20 19:10 04/11/20 19:24 Nicotine Polacrilex 4 Mg Lozenge BUCCAL 4 mg Q2H PRN Administration Nicotine Cravings Oxycodone HCl 5 mg 04/20/20 15:13 04/21/20 09:27 Oxycodone Hcl Immed Release 5 Mg Tablet PO 5 mg Q4H PRN Administration Pain, Severe (Pain Scale 7-10) Quetiapine Fumarate 100 mg 04/16/20 14:21 04/18/20 01:38 Quetiapine Fumarate 100 Mg Tablet PO 100 mg Q4H PRN Administration Anxiety Quetiapine Fumarate 100 mg 04/17/20 08:30 04/21/20 09:01 Quetiapine Fumarate 100 Mg Tablet PO 100 mg BID@0830,1330 SETH Administration Quetiapine Fumarate 300 mg 04/16/20 21:00 04/20/20 22:47 Quetiapine Fumarate 300 Mg Tablet PO 300 mg BEDTIME SETH Administration Trazodone HCl 25 mg 04/11/20 16:39 04/20/20 22:54 Trazodone Hcl 50 Mg Tablet PO 25 mg BEDTIME PRN Administration Insomnia Allergies Allergies Allergy/AdvReac Type Severity Reaction Status Date / Time No Known Allergies Allergy Verified 04/07/20 21:02 [No Known Allergies*] Assessment & Plan Assessment & Plan (1) Major depressive disorder, recurrent severe without psychotic features: Status: Acute Code(s): F33.2 - Major depressive disorder, recurrent severe without psychotic features (2) Opiate addiction: Qualifiers: Substance use status: with unspecified opioid-induced disorder Qualified Code(s): F11.29 - Opioid dependence with unspecified opioid-induced disorder Status: Acute Code(s): F11.20 - Opioid dependence, uncomplicated (3) Open wound of right wrist: Qualifiers: Encounter type: sequela Qualified Code(s): S61.501S - Unspecified open wound of right wrist, sequela Status: Acute Code(s): S61.501A - Unspecified open wound of right wrist, initial encounter Assessment and Plan: CT psychiatric medication without change CT education about sobriety S/P skin graft. Dressings intact. Greater than 50% of the session was spent on counseling and/or coordination of care Patient educated on: diagnosis, medication risk/benefits and medical condition Informed Consent: further education needed Reason for contiued inpatient stay Substantial Risk for: rapid decompensation
--- NOTE | 2020-04-21 10:55 | HO.POSTANES ---
Post Anesthesia Evaluation Post Anesthesia Evaluation Vital Signs: Vital Signs Temp Pulse Resp BP 04/21/20 05:00 98.3 F 107 H 16 118/66 Anesthesia: General Mental Status: Awake Pain Control: Satisfactory Nausea/Vomiting: None Hydration: Adequate Anesthesia-Related Issues: No Anes. Related Issues
--- NOTE | 2020-04-21 12:21 | HO.PSYCHPN ---
Subjective Subjective Date of Service: 04/22/20 Reason For Visit: SI, depression, Subjective Notes: Conditional Voluntary Medication Compliance: Yes Diagnostics Vital Signs (24Hr): Vital Signs - 24 hr 04/20/20 12:59 04/20/20 14:40 04/20/20 14:45 Temperature 98.7 F 97.6 F Pulse Rate 59 81 67 Respiratory Rate 16 16 18 Blood Pressure 104/61 115/72 107/69 Pulse Oximetry 97 99 98 04/20/20 14:50 04/20/20 14:55 04/20/20 15:10 Temperature 97.6 F Pulse Rate 70 64 67 Respiratory Rate 16 18 18 Blood Pressure 111/73 127/79 111/73 Pulse Oximetry 100 100 99 04/20/20 15:56 04/21/20 05:00 Temperature 97.3 F 98.3 F Pulse Rate 80 107 H Respiratory Rate 16 16 Blood Pressure 140/79 H 118/66 Pulse Oximetry 98 Body Mass Index 27.2 Labs Results: 04/07/20 21:17 04/07/20 21:17 Medications Medications Current Medications Generic Name Dose Route Start Last Admin Trade Name Freq PRN Reason Stop Dose Admin Acetaminophen 650 mg 04/10/20 20:11 Acetaminophen 325 Mg Tablet PO Q6H PRN Headache/Pain Mild Scale (1-3) Buprenorphine/Naloxone 1 film 04/13/20 09:00 04/21/20 09:30 Buprenorphine/Naloxone 8/2 Mg Film SUBLINGUAL 1 film DAILY SETH Administration Hydroxyzine HCl 50 mg 04/15/20 12:43 04/21/20 05:01 Hydroxyzine Hcl 25 Mg Tablet PO 50 mg RQ4H PRN Administration Anxiety Magnesium Hydroxide 30 ml 04/10/20 20:11 Milk Of Magnesia 30 Ml Oral.Susp PO DAILY PRN Constipation Mirtazapine 30 mg 04/18/20 21:00 04/20/20 22:47 Mirtazapine 15 Mg Tablet PO 30 mg BEDTIME SETH Administration Nicotine 21 mg 04/12/20 09:00 04/21/20 09:00 Nicotine 21 Mg Patch.Td24 TRANSDERMA 21 mg DAILY SETH Administration Nicotine Polacrilex 4 mg 04/11/20 19:10 04/11/20 19:24 Nicotine Polacrilex 4 Mg Lozenge BUCCAL 4 mg Q2H PRN Administration Nicotine Cravings Oxycodone HCl 5 mg 04/20/20 15:13 04/21/20 09:27 Oxycodone Hcl Immed Release 5 Mg Tablet PO 5 mg Q4H PRN Administration Pain, Severe (Pain Scale 7-10) Quetiapine Fumarate 100 mg 04/16/20 14:21 04/21/20 11:32 Quetiapine Fumarate 100 Mg Tablet PO 100 mg Q4H PRN Administration Anxiety Quetiapine Fumarate 100 mg 04/17/20 08:30 04/21/20 09:01 Quetiapine Fumarate 100 Mg Tablet PO 100 mg BID@0830,1330 SETH Administration Quetiapine Fumarate 300 mg 04/16/20 21:00 04/20/20 22:47 Quetiapine Fumarate 300 Mg Tablet PO 300 mg BEDTIME SETH Administration Trazodone HCl 25 mg 04/11/20 16:39 04/20/20 22:54 Trazodone Hcl 50 Mg Tablet PO 25 mg BEDTIME PRN Administration Insomnia Allergies Allergies Allergy/AdvReac Type Severity Reaction Status Date / Time No Known Allergies Allergy Verified 04/07/20 21:02 [No Known Allergies*] Assessment & Plan Greater than 50% of the session was spent on counseling and/or coordination of care
[2020-04-21 13:21] VITALS: TEMP 37.2
--- NOTE | 2020-04-21 14:34 | PC.NURSE ---
DR PORTER CALLED RE: DRESSING CHANGE ORDER. DR PORTER STATES THAT DRESSINGS SHOULD NOT BE CHANGED X [address] PORTER INFORMED OF POSSIBLE DISCHARGE TOMORROW AND QUESTIONED RE: FOLLOW-UP APPOINTMENT. DR PORTER STATES HE WILL BE UP TOMORROW TO EVALUATE GRAFT SITE AND DONOR SITE. STAFF CAN REINFORCE DRESSINGS IF NEEDED. PT AWARE OF PLAN AND REPORTS HIGH ANXIETY RE: WANTING DISCHARGE TOMORROW TO SECURE BED AT [facility]. DR BERRY AWARE OF PLAN WITH DR PORTER.
[2020-04-21 19:06] VITALS: BP 112/61; PULSE 92; TEMP 36.9
[2020-04-21] MEDS: Mirtazapine 15 MG TABLET 30 MG PO (20:40)
[2020-04-21] MEDS: traZODone HCL 50 MG TABLET 25 MG PO (20:40)
[2020-04-21] MEDS: QUEtiapine Fumarate 300 MG TABLET PO (20:41)
[2020-04-22] MEDS: oxyCODONE HCl Immed Release 5 MG TABLET PO ×2 (00:17→08:36)
[2020-04-22] MEDS: hydrOXYzine HCL 25 MG TABLET 50 MG PO (00:17)
[2020-04-22] MEDS: QUEtiapine Fumarate 100 MG TABLET PO ×2 (00:17→08:37)
[2020-04-22 06:10] VITALS: BP 101/53; PULSE 57; RESP 16; TEMP 36.6
--- NOTE | 2020-04-22 08:09 | PM.PNGS ---
Subjective Subjective Interval history: Neri is status post split-thickness skin graft to right wrist from right thigh postoperative day 2. The patient reports some discomfort from the right leg at the graft site otherwise feels well. Denies significant symptoms from the right wrist. Physical Exam Vital Signs: Vital Signs: Vital Signs Temp Pulse Resp BP 04/22/20 06:10 97.9 F 57 16 101/53 L 04/21/20 19:06 98.5 F 92 112/61 04/21/20 13:21 99.0 F Body Mass Index 27.2 Skin: Other: Warm and dry, no rash Extrem: Other: right wrist with 100% viability of the skin graft with minimal bloody discharge noted. No evidence of wound infection. Right wound is clean and intact. Dressings to both wounds changed. Progress Note: A&P Assessment and plan (1) Open wound of right wrist: Status: Acute (2) S/P split thickness skin graft: Status: Acute Assessment and Plan: dressings changed today to both the right wrist and right thigh. Both wounds appear clean and intact. So far there is good take on the skin graft. the right wrist was dressed with Xeroform followed by 4 x 4 gauze, Kerlix, and a 4 inch Jeffrey bandage. The right leg was dressed with Xeroform, 4 x 4, and paper tape. The dressing to the right leg could be changed daily with Xeroform and dry sterile dressings. He should follow up in my office on Monday04/24/2020 for dressing change to the right arm. He was okay for discharge today from my standpoint. Fall Risk Details Current Medications: Current Medications Generic Name Dose Route Start Last Admin Trade Name Freq PRN Reason Stop Dose Admin Acetaminophen 650 mg 04/10/20 20:11 Acetaminophen 325 Mg Tablet PO Q6H PRN Headache/Pain Mild Scale (1-3) Buprenorphine/Naloxone 1 film 04/13/20 09:00 04/21/20 09:30 Buprenorphine/Naloxone 8/2 Mg Film SUBLINGUAL 1 film DAILY SETH Administration Hydroxyzine HCl 50 mg 04/15/20 12:43 04/22/20 00:17 Hydroxyzine Hcl 25 Mg Tablet PO 50 mg RQ4H PRN Administration Anxiety Magnesium Hydroxide 30 ml 04/10/20 20:11 Milk Of Magnesia 30 Ml Oral.Susp PO DAILY PRN Constipation Mirtazapine 30 mg 04/18/20 21:00 04/21/20 20:40 Mirtazapine 15 Mg Tablet PO 30 mg BEDTIME SETH Administration Nicotine 21 mg 04/12/20 09:00 04/21/20 09:00 Nicotine 21 Mg Patch.Td24 TRANSDERMA 21 mg DAILY SETH Administration Nicotine Polacrilex 4 mg 04/11/20 19:10 04/11/20 19:24 Nicotine Polacrilex 4 Mg Lozenge BUCCAL 4 mg Q2H PRN Administration Nicotine Cravings Oxycodone HCl 5 mg 04/20/20 15:13 04/22/20 00:17 Oxycodone Hcl Immed Release 5 Mg Tablet PO 5 mg Q4H PRN Administration Pain, Severe (Pain Scale 7-10) Quetiapine Fumarate 100 mg 04/16/20 14:21 04/22/20 00:17 Quetiapine Fumarate 100 Mg Tablet PO 100 mg Q4H PRN Administration Anxiety Quetiapine Fumarate 100 mg 04/17/20 08:30 04/21/20 13:15 Quetiapine Fumarate 100 Mg Tablet PO 100 mg BID@0830,1330 SETH Administration Quetiapine Fumarate 300 mg 04/16/20 21:00 04/21/20 20:41 Quetiapine Fumarate 300 Mg Tablet PO 300 mg BEDTIME SETH Administration Trazodone HCl 25 mg 04/11/20 16:39 04/21/20 20:40 Trazodone Hcl 50 Mg Tablet PO 25 mg BEDTIME PRN Administration Insomnia Time Spent With Patient Time: Total time spent is greater than 50% in coordination of care (as documented) at patient's floor/unit and/or counseling patient: Time with patient: 15 - 24 minutes
[2020-04-22] MEDS: Buprenorphine/Naloxone 8/2 mg FILM 1 FILM SUBLINGUAL (08:38)
[2020-04-22 08:48] LABS: Estimated Average Glucose 100 mg/dL; Hemoglobin A1c % 5.1 %
--- NOTE | 2020-04-22 09:21 | P.DS_ITS ---
DS: Providers Provider Date of admission: 04/10/20 17:41 Primary care physician: None Physician Attending physician on admission: Terri Patel Consults: 04/10/20 21:04 Consult to Hospitalist Routine Consulting Provider: Hospitalist Reason for consultation: advise and treat open draining forearm wound Has provider been notified: No 04/14/20 13:13 Consult to Wound Care Provider Routine Consulting Provider: Arpita Vaughn Reason for consultation: POOR WOUND HEALIND R FOREARM ADVISE AND TX Has provider been notified: No Attending physician on discharge: Terri Patel Anticipated date of discharge: 04/22/20 DS: Diagnosis Discharge Diagnosis (1) Open wound of right wrist: Status: Acute (2) S/P split thickness skin graft: Status: Acute Discharge Plan Discharge Patient Disposition: Xfer Other Referrals: Chantel Workman NP [Nurse Practitioner] - 04/23/20 1:00 pm Wilber Hurst MD [Physician] - 04/24/20 9:00 am ( Call for appointment for Monday04/24/2020 for dressing change) Discharge Medications: New quetiapine 300 mg Tablet 300 mg PO BEDTIME Qty: 30 RF: 0 trazodone 50 mg Tablet 25 mg PO BEDTIME PRN (Reason: Insomnia) Qty: 30 RF: 0 quetiapine 100 mg Tablet 100 mg PO BID@0830,1330 Qty: 60 RF: 0 hydroxyzine HCl 25 mg Tablet 50 mg PO RQ4H PRN (Reason: Anxiety) Qty: 30 RF: 0 mirtazapine 15 mg Tablet 30 mg PO BEDTIME Qty: 60 RF: 0 oxycodone 5 mg Tablet 5 mg PO Q4H PRN (Reason: Pain, Severe (Pain Scale 7-10)) Qty: 6 RF: 0 buprenorphine-naloxone [Suboxone] 8-2 mg Film 1 film sublingual DAILY Qty: 7 RF: 0 Discharge Orders: Discharge Order (Routine); Ordered 04/22/20 Ordered By: Terri Patel Diet: advance to your usual diet Activity on Discharge: As tolerated Stand Alone Forms: Community Support Visit Report Forms: Patient Portal Discharge page Care Plan Goals: S/P skin graft Depressed mood Substance abuse Health Concerns: Substance abuse Plan of Treatment: Follow up with Dr. Hurst Follow up with your appointments Mental Status Exam Mental Status Exam Patient Appearance: Well Grooomed Patient Orientation: Person, Place, Time and Situation Level of Consciousness: Awake Patient Behavior: Appropriate Mood Description: Calm and Apathetic Affect Description: Calm Patient Cognition Impaired: No Ability to Follow Directions: Fair Speech Pattern: Clear and Spontaneous Speech Memory Description: Intact Hallucinations: None Delusions: Not Present Thought Process: Intact Thought Content: positive for Intact, negative for Suicidal Ideation and negative for Homicidal Ideation Judgement: Fair Data Data Completed and Pending Completed studies during hospitalization [Text1]: 04/21/20 04/22/20 11:27 08:05 Estimat Average Glucose 100 Hemoglobin A1c % 5.1 Lipoprotein (a) Pending DS: Summary Hospital Course Hospital Course: Patient self presented to ED reporting depression and suicidal ideation with plan to hang himself. Reporting auditory and visual hallucinations with command hallucinations to kill himself. Patient tox screen positive for heroin, cocaine and marijuana. Past Psychiatric History: patient began using drugs including heroin and cocaine age 18. He has struggled with SI off and on since that time. He has had multiple inpatient substance abuse treatment and detoxes. His longest period of sobriety was 7 months when he was at the [facility]. He has no current outpatient providers Medical Evaluation Reviewed: Yes pt has open wound stage II on right outer forearm. no fever. Wound appears clean. It is draining small amount of serous fluid on his bedding Hospital Course The patient was placed on 15 minute checks and he signed a CV. He was restarted on medication that he had previously found helpful for his anxiety, depression and cravings for drugs. These included seroquel, remeron and suboxone. He initially stated that he wanted to go to a sober house and referrals were made. However, the wait was long and there was nothing available so he accepted referral to [facility]. On the unit he tended to keep to himself and he did not participate in groups. When he was admitted he had a non-healing ulcer on his wrist. He was seen by surgery and a skin graft was recommended. This was performed without incident. The site was examined by Dr. Hurst on the day of DC and it was healing well. Outpatient FU was recommended. Status at Discharge Functional status at discharge: independent ambulation Overall status at discharge: patient is back to baseline Time Spent with Patient Time attestation: Total time spent providing and/or coordinating discharge services:
[2020-04-28 04:32] LABS: Lipoprotein A 171 nmol/L (<75)
== END 2020-04-22 12:43 | disposition other institution (70) | DRG 740 ==
LOC: HO.ED 04-10 17:22 → HO.PM5 04-10 17:58
PROVIDERS: Surgery; Admitting Provider Psychiatry & Neurology Psychiatry; Emergency Provider Student in an Organized Health Care Education/Training Program; Visit Provider Psychiatry & Neurology Psychiatry
PROC: 0HRDX74 Replacement of Right Lower Arm Skin with Autologous Tissue Substitute, Partial Thickness, External Approach (ICD-10-PCS; principal; 2020-04-20 12:30)
DX: F32.9 Major depressive disorder, single episode, unspecified (principal); R45.851 Suicidal ideations; R44.0 Auditory hallucinations; Z20.828 Contact with and (suspected) exposure to other viral communicable diseases; Z59.0 Homelessness; F11.20 Opioid dependence, uncomplicated
CPT/HCPCS: 36415; 80053; 80307; 80320; 81003; 83036; 83695; 85025; 87635; 93005; 99024; 99221; 99223; 99232; 99285; J0131; J0572; J0573; J0574; J0690; J1885; J2250; J2370; J3010

== ENCOUNTER 2020-05-04 04:21 | Emergency (ER) | payer OTHER, SELFPAY ==
[2020-05-04 04:23] VITALS: BP 149/88; PULSE 85; RESP 18; TEMP 36.7; O2SAT 98; BMI 28.0
--- NOTE | 2020-05-04 04:50 | PC.NURSE ---
PT WALKED OUTSIDE CALLED THREE TIMES. WILL ATTEMPT AGAIN
== END 2020-05-04 05:44 | disposition left against medical advice (07) ==
LOC: HO.ED 05:42
PROVIDERS: Emergency Provider Student in an Organized Health Care Education/Training Program
DX: R21 Rash and other nonspecific skin eruption (principal)
CPT/HCPCS: 99282

== ENCOUNTER 2020-05-16 08:03 | Inpatient (IN) | payer OTHER, SELFPAY ==
[2020-05-16] VITALS (8 sets, daily range): BP systolic 96–118; BP diastolic 47–61; PULSE 56–85; RESP 16–20; TEMP 36.7–37.3; O2SAT 96–100; BMI 23.6
--- NOTE | 2020-05-16 08:30 | CT_ITS ---
EXAMINATION: CT LOWER LEG RIGHT WITH CONTRAST CLINICAL INFORMATION: 35-year-old male with redness, swelling and limited range of motion of left lower extremity. Evaluate for possible septic joint or blood clot. COMPARISON: Lower extremity venous ultrasound from 05/16/2020. TECHNIQUE: Multidetector CT imaging examination of the right lower extremity was performed with intravenous administration of 85 mL of Omnipaque 350. No contrast reaction reported. DLP: 390 mGy-cm FINDINGS: Bones have normal alignment at the knee and ankle. Old healed fracture of the distal fibular metadiaphysis. Ghost tracks from prior fixation hardware of the distal tibial and fibular metaphysis. No residual hardware. Diffuse edema of subcutaneous tissues involving the visualized ankle, leg and distal thigh. The fluid/edema within subcutaneous tissues is worse over the anterior than posterior aspect of the extremity. No focal, rim-enhancing collection. Also, no evidence of thickened, hyperenhancing fascia or soft tissue gas. The muscles have normal attenuation throughout the extremity. No evidence of myositis or mass. The fat planes are well-preserved along the visualized course of the distal sciatic, tibial and peroneal nerves. The popliteal, tibial and peroneal veins are patent; no venous thrombosis. A trace amount of fluid is present within the right knee joint. No Villareal's cyst. No periarticular osteoporosis, erosion or periostitis. No evidence of osteomyelitis within the extremity. CT/CT lower leg RT w con IMPRESSION: * Diffuse edema of subcutaneous tissues of the extremity could represent cellulitis. No soft tissue abscess. Also, no overt imaging findings of fasciitis or myositis. * A trace amount of fluid is present within the right knee joint. There are no findings of a septic knee joint. No periarticular osteoporosis, erosion or periostitis. No evidence of osteomyelitis in the extremity. * No superficial or deep vein thrombosis in the extremity.
--- NOTE | 2020-05-16 08:30 | US_ITS ---
EXAMINATION: US VENOUS ULTRASOUND WITH DOPPLER LOWER EXTREMITY, RIGHT CLINICAL INFORMATION: Question blood clot versus sepsis. COMPARISON: None TECHNIQUE: Ultrasound of the deep veins is performed from the hip to the calf with compression sonography and color and pulse Doppler assessment. Spectral analysis with color-flow imaging is performed. FINDINGS: There is normal venous compression and respiratory variation and augmented flow. The visualized common femoral vein, superficial femoral vein, profunda femoral vein, popliteal vein, and the trifurcation region shows no evidence of deep venous thrombosis. There is no significant popliteal fossa cyst. No popliteal artery aneurysm. There is prominent inguinal lymph nodes present the largest being 4.6 x 1.5 x 2.5 cm in size with cortical thickening with some mild lobulation likely related to infectious/inflammatory process. US/US venous duplex LE RT IMPRESSION: No acute DVT demonstrated in the right lower extremity. Prominent right inguinal lymph nodes with cortical thickening.
[2020-05-16] MEDS: oxyCODONE HCl Immed Release 5 MG TABLET PO ×3 (08:41→19:20)
--- NOTE | 2020-05-16 08:41 | ED.SKABFB ---
HPI - Skin/Abscess/Foreign Bdy General Chief complaint: Skin/Abscess/Foreign Body Stated complaint: abscess Time Seen by Provider: 05/16/20 08:16 Source: patient Mode of arrival: ambulatory Limitations: no limitations History of Present Illness HPI narrative: 35yoM c PMHx of substance dependent of IV Drugs currently homeless presenting to the ED c c/o Right knee pain/swelling/redness x 1 week worse today. Reports he does not inject in his legs only his arms. Last used IV drugs 6 hrs [facility] [facility]. Denies hx of MRSA. Denies Fevers, CP/SOB or anyother symptoms complaints or concerns. Related Data Previous Rx's Medication Instructions Recorded buprenorphine-naloxone [Suboxone] 1 film SUBLINGUAL DAILY #7 ea 04/22/20 hydroxyzine HCl 50 mg PO RQ4H PRN #30 tab 04/22/20 mirtazapine 30 mg PO BEDTIME #60 tab 04/22/20 oxycodone 5 mg PO Q4H PRN #6 tab 04/22/20 quetiapine 100 mg PO BID@0830,1330 #60 tab 04/22/20 quetiapine 300 mg PO BEDTIME #30 tab 04/22/20 trazodone 25 mg PO BEDTIME PRN #30 tab 04/22/20 Allergies Allergy/AdvReac Type Severity Reaction Status Date / Time No Known Allergies Allergy Verified 04/07/20 21:02 [No Known Allergies*] Review of Systems Review of Systems: Constitutional : No Fever, No Chills , no body aches, no recent illness Cardiovascular : No Chest Pain, No SOB, No palpitations Respiratory : No Cough, No Sputum, No Wheezing, No Dyspnea Gastrointestinal : No Nausea, No Vomiting, No Diarrhea, No abdominal Pain Genitourinary : No Dysuria, No Urinary Frequency, No Hematuria Musculoskeletal : + joint pain, + Joint Swelling Skin : + Skin Lesions, No rash Neuro : No Weakness, No Numbness, No Headache, No dizziness, No tingling Psych : No Anxiety/Panic, No Depression Heme/Lymph: No Bruising, No Lymphadenopathy Endocrine : No Polyuria, No Polydipsia Denies changes in lotions or detergents. Denies new medications or any changes in medications. Denies drainage from rash. Denies any recent sick contacts or recent travel. Yes all other systems are reviewed and are negative PMFSH Past Medical History Attestation statement: The following information was validated with the patient. Medical History No known health problems Surgical History No history of previous surgery S/P split thickness skin graft Social History Social History Household Members: None Housing: Homeless Alcohol intake: current Alcohol intake frequency: holidays/special occasions only Smoking Status: Current some day smoker Tobacco Type: Cigarette Packs Per Day: 20 Cigarettes Per Day: 400.0 Years Smoked: 15 Second Hand Smoke Exposure: Yes Use of substances other than those prescribed or required for medical reasons: Yes Substance Use Type: Crack/Cocaine and Heroin Substance Use Frequency: Chronic Longstanding Advance Directives: No Advance Directives Information Provided: No service: No Sexual orientation: Straight/Heterosexual Physical Exam Vital Signs: Vital Signs: Last Vital Signs Temp 98.8 F 05/16/20 08:11 Pulse 85 05/16/20 08:11 Resp 16 05/16/20 09:53 BP 118/50 L 05/16/20 08:11 Pulse Ox 100 05/16/20 08:11 Body Mass Index 23.6 vital signs have been reviewed as normal and appeared to be correct. Blood pressure normal. Heart rate normal. Respiration rate normal. Temperature normal. Oxygen saturation normal. Appearance: Alert. Oriented X3. No acute distress. Head: Normal external exam. Normocephalic. Atraumatic. Eyes: PERRLA. EOMI. Conjunctiva and sclera normal. Eyelids normal. ENT: EAC normal. TM's Normal. Pharynx normal. Uvula midline. Moist mucous membranes. Neck: Normal inspection. Neck supple. FROM. No adenopathy. No meningeal signs. CVS: Normal heart rate and rhythm. Heart sound normal. No murmurs noted. Pulses normal throughout. Respiratory: No respiratory distress. Painless inspiration. Breath sounds normal. No wheezes/rales/rhonchi noted. Chest nontender. No accessory muscle usage noted or decreased air movement noted. Back: Full range of motion noted. Skin: Skin warm and dry. Normal skin color. Normal skin turgor. No rashes/lesions/lacerations noted. Extremities: Right knee c wound to knee with moderate surrounding erythema and serosanguineous drainage, the entire leg appears edematous. Patient has limited range of motion for flexion and extension of the right knee. Otherwise no streaking noted. Patient does have calf tenderness. +2 pulses to the entire right leg.No lower extremity edema. All other Extremities exhibit normal range of motionand nontender. Neuro: Oriented X 3. No motor deficit. No sensory deficit. Reflexes normal. Course Course Course Narrative: 8:32am - 35yoM c PMHx of substance dependent of IV Drugs currently homeless presenting to the ED c c/o Right knee pain/swelling/redness x 1 week worse today. - Concern for Blood clot vs Septic joint vs Necrotizing fasciitis vs Abscess/cellulitis vs Sepsis. - Plan: Labs, CT scan of Right leg c contrast, Venous duplex US, blood cultures, lactic acid. 4mg of morphine, 5 mg of oxycodone, IV fluids and IV abx's with Zosyn and Vanco then re-evaluate. Reevaluation(s) Reevaluation #1: - WBC at 10,000. Sodium at 130. BUN at 23. ALT at 204. alkaline phosphate 128. otherwise all other labs are within normal limits including lactic acid. COVID swab negative. Ultrasound negative for DVT. CT scan of right lower extremity revealed cellulitis no soft tissue abscess and not consistent with septic joint. No evidence of osteomyelitis. - Plan is to admit for cellulitis. Patient has poor follow-up and is currently homeless. Patient understands agrees with this plan. Time: 10:56 MDM - Skin/Abscess/Foreign Bdy Medical Records Attestation: I reviewed the patient's medical records. Lab Data Attestation: I reviewed the patient's lab results. Result diagrams: 05/16/20 08:52 05/16/20 08:52 Labs: Lab Results 05/16/20 05/16/20 05/16/20 Range/Units 08:52 08:52 08:52 WBC 10.9 H (4.8-10.8) X10*3/uL RBC 3.81 L (4.60-5.80) X10*6/uL Hgb 10.5 L (14.0-18.0) g/dl Hct 33.2 L (42-52) % MCV 87.1 (80-98) fL MCH 27.6 (27.0-33.0) pg MCHC 31.6 (31.0-36.0) g/dl RDW 14.9 (11.0-16.0) % Plt Count 125 L D (160-400) X10*3/uL MPV 13.0 H (9.4-12.4) fL Immature Gran % (Auto) 0.5 H (0.0-0.4) % Neut % (Auto) 67.2 (45-73) % Lymph % (Auto) 24.3 (20-40) % [place] % (Auto) 7.0 (2-11) % Eos % (Auto) 0.6 (0-4) % Baso % (Auto) 0.4 (0-2) % Lymph # (Auto) 2.7 (1.2-4.9) X10*3/uL [place] # (Auto) 0.8 (0.1-1.2) X10*3/uL Eos # (Auto) 0.1 (0.0-0.4) X10*3/uL Baso # (Auto) 0.0 (0.0-0.2) X10*3/uL Abs Immat Gran (auto) 0.05 H (0.00-0.03) X10*3/uL Absolute Neuts (auto) 7.3 (2.0-8.3) X10*3/uL Absolute Nucleated RBC 0.000 (0.0-0.012) X10*3/uL Nucleated RBC % (auto) 0.0 (0.0-0.2) /100WBC Smear Tech's Comments VERIFIED PT 14.4 H (10.8-13.0) SEC INR 1.2 H (0.9-1.1) Sodium 130 L (135-145) mmol/L Potassium 4.9 (3.3-5.1) mmol/l Chloride 95 L (96-108) mmol/L Carbon Dioxide 28 (22-29) mmol/L Anion Gap 12 (12-20) BUN 23 H (9-16) mg/dL Creatinine 0.96 (0.5-1.4) mg/dL Estim Creat Clear Calc 107.4 Estimated GFR > 60 Random Glucose 96 (60-115) mg/dL Lactic Acid (0.5-2.0) mmol/L Calcium 8.5 D (8.4-10.2) mg/dL Magnesium 1.8 (1.6-2.6) mg/dL Total Bilirubin 0.5 (0.0-1.0) mg/dL Direct Bilirubin 0.3 (0.0-0.5) mg/dL AST 22 (5-37) U/L ALT 204 H (0-40) U/L Alkaline Phosphatase 128 H D (39-117) U/L Total Protein 6.8 (6.5-8.0) g/dL Albumin 3.6 (3.5-5.0) g/dL COVID-19 ([facility]) (Negative) COVID-19 Clin Com 05/16/20 05/16/20 Range/Units 08:52 09:43 WBC (4.8-10.8) X10*3/uL RBC (4.60-5.80) X10*6/uL Hgb (14.0-18.0) g/dl Hct (42-52) % MCV (80-98) fL MCH (27.0-33.0) pg MCHC (31.0-36.0) g/dl RDW (11.0-16.0) % Plt Count (160-400) X10*3/uL MPV (9.4-12.4) fL Immature Gran % (Auto) (0.0-0.4) % Neut % (Auto) (45-73) % Lymph % (Auto) (20-40) % [place] % (Auto) (2-11) % Eos % (Auto) (0-4) % Baso % (Auto) (0-2) % Lymph # (Auto) (1.2-4.9) X10*3/uL [place] # (Auto) (0.1-1.2) X10*3/uL Eos # (Auto) (0.0-0.4) X10*3/uL Baso # (Auto) (0.0-0.2) X10*3/uL Abs Immat Gran (auto) (0.00-0.03) X10*3/uL Absolute Neuts (auto) (2.0-8.3) X10*3/uL Absolute Nucleated RBC (0.0-0.012) X10*3/uL Nucleated RBC % (auto) (0.0-0.2) /100WBC Smear Tech's Comments PT (10.8-13.0) SEC INR (0.9-1.1) Sodium (135-145) mmol/L Potassium (3.3-5.1) mmol/l Chloride (96-108) mmol/L Carbon Dioxide (22-29) mmol/L Anion Gap (12-20) BUN (9-16) mg/dL Creatinine (0.5-1.4) mg/dL Estim Creat Clear Calc Estimated GFR Random Glucose (60-115) mg/dL Lactic Acid 1.1 (0.5-2.0) mmol/L Calcium (8.4-10.2) mg/dL Magnesium (1.6-2.6) mg/dL Total Bilirubin (0.0-1.0) mg/dL Direct Bilirubin (0.0-0.5) mg/dL AST (5-37) U/L ALT (0-40) U/L Alkaline Phosphatase (39-117) U/L Total Protein (6.5-8.0) g/dL Albumin (3.5-5.0) g/dL COVID-19 ([facility]) Negative (Negative) COVID-19 Clin Com See Note Imaging Data ct scan with contrast to right lower leg : Attestation: I personally reviewed and interpreted this imaging study as follows: Radiologist's impression: IMPRESSION: * Diffuse edema of subcutaneous tissues of the extremity could represent cellulitis. No soft tissue abscess. Also, no overt imaging findings of fasciitis or myositis. * A trace amount of fluid is present within the right knee joint. There are no findings of a septic knee joint. No periarticular osteoporosis, erosion or periostitis. No evidence of osteomyelitis in the extremity. * No superficial or deep vein thrombosis in the extremity. Right lower leg venous doopler : Attestation: I personally reviewed and interpreted this imaging study as follows: Radiologist's impression: IMPRESSION: No acute DVT demonstrated in the right lower extremity. Prominent right inguinal lymph nodes with cortical thickening. Critical Care Time Critical Care Time Critical Care Time: Yes Total Critical Care Time: 60 Attestation: I personally attest to this time spent taking care of the patient Discharge Plan Discharge Clinical Impression: Cellulitis Patient Disposition: Admitted As Inpatient Prescriptions: No Action quetiapine 300 mg Tablet 300 mg PO BEDTIME Qty: 30 RF: 0 trazodone 50 mg Tablet 25 mg PO BEDTIME PRN (Reason: Insomnia) Qty: 30 RF: 0 quetiapine 100 mg Tablet 100 mg PO BID@0830,1330 Qty: 60 RF: 0 hydroxyzine HCl 25 mg Tablet 50 mg PO RQ4H PRN (Reason: Anxiety) Qty: 30 RF: 0 mirtazapine 15 mg Tablet 30 mg PO BEDTIME Qty: 60 RF: 0 oxycodone 5 mg Tablet 5 mg PO Q4H PRN (Reason: Pain, Severe (Pain Scale 7-10)) Qty: 6 RF: 0 buprenorphine-naloxone [Suboxone] 8-2 mg Film 1 film sublingual DAILY Qty: 7 RF: 0
[2020-05-16] MEDS: Morphine Sulfate 4 MG/ML CARTRIDGE IVPUSH ×3 (08:53→23:03)
[2020-05-16] MEDS: 0.9 % Sodium Chloride 1,000 ML 999 ML IVCONT (08:54)
[2020-05-16 09:16] LABS: Eosinophils Percent Auto 0.6 % (0-4); Imm Gran Abs Auto 0.05 X10*3/uL (0.00-0.03); Imm Gran Pct Auto 0.5 % (0.0-0.4); MANUAL DIFF FLAG SCAN; SCAN SMEAR FLAG 1
[2020-05-16 09:18] LABS: Basophils Percent Auto 0.4 % (0-2); Eosinophils Absolute Auto 0.1 X10*3/uL (0.0-0.4); Hematocrit 33.2 % (42-52); Hemoglobin 10.5 g/dl (14.0-18.0); Lymphocytes Absolute Auto 2.7 X10*3/uL (1.2-4.9); Lymphocytes Percent Auto 24.3 % (20-40); Mean Corpuscular HGB Conc 31.6 g/dl (31.0-36.0); Mean Corpuscular Hemoglobin 27.6 pg (27.0-33.0); Mean Corpuscular Volume 87.1 fL (80-98); Monocytes Absolute Auto 0.8 X10*3/uL (0.1-1.2); Neutrophils Absolute Auto 7.3 X10*3/uL (2.0-8.3); Neutrophils Percent Auto 67.2 % (45-73); Platelet Count 125 X10*3/uL (160-400); Red Blood Count 3.81 X10*6/uL (4.60-5.80); Red Cell Distribution Width 14.9 % (11.0-16.0); White Blood Count 10.9 X10*3/uL (4.8-10.8)
[2020-05-16 09:28] LABS: Lactic Acid 1.1 mmol/L (0.5-2.0)
[2020-05-16] MEDS: Piperacillin Sodium/Tazobactam 3.375 GM in 0.9 % Sodium Chloride 50 ML IV ×2 (09:31→14:33)
[2020-05-16 09:36] LABS: INTERNATIONAL NORM RATIO 1.2 (0.9-1.1); PLT ABN DIST 1; Prothrombin Time 14.4 SEC (10.8-13.0)
[2020-05-16 09:37] LABS: SLIDE REVIEW VERIFIED
[2020-05-16 09:39] LABS: Alanine Aminotransferase 204 U/L (0-40); Albumin Level 3.6 g/dL (3.5-5.0); Alkaline Phosphatase 128 U/L (39-117); Anion Gap 12 (12-20); Aspartate Amino Transferase 22 U/L (5-37); Bilirubin Direct 0.3 mg/dL (0.0-0.5); Bilirubin Total 0.5 mg/dL (0.0-1.0); Blood Urea Nitrogen 23 mg/dL (9-16); Calcium 8.5 mg/dL (8.4-10.2); Carbon Dioxide 28 mmol/L (22-29); Chloride 95 mmol/L (96-108); Creatinine Clr Calc Pharmacy 107.4; Estimated Glomerular Filt Rate > 60; Glucose Random 96 mg/dL (60-115); Magnesium 1.8 mg/dL (1.6-2.6); Potassium 4.9 mmol/l (3.3-5.1); Sodium 130 mmol/L (135-145); Total Protein 6.8 g/dL (6.5-8.0)
[2020-05-16 10:02] LABS: COVID-19 Test Negative (Negative)
[2020-05-16] MEDS: iohexoL 350 MG/ML 100 ML INFUS..BTL 85 ML IV (10:32)
[2020-05-16] MEDS: vancomycin HCL 1,000 MG in 0.9 % Sodium Chloride 250 ML 270 MG IV (10:46)
--- NOTE | 2020-05-16 12:01 | P.HPHOSP_ITS ---
History of Present Illness Date of Service: 05/16/20 Chief Complaint: right knee pain This is a 35-year-old homeless male with history of polysubstance abuse who presents to the emergency department with redness and swelling of his right knee. This began approximately 4 days ago. he denies injecting drugs into his lower extremities. He has had increasing pain and difficulty ambulating. He denies any associated fever or chills. His leg was found to be significantly red and swollen with open area on the right knee. He underwent a CT scan of the area which showed no evidence of septic joint or abscess. Right lower extremity ultrasound showed no evidence of DVT. lab work was significant for leukocytosis of 10.9 and thrombocytopenia with platelet count of 125. Sodium level 130. Lactic acid was within normal limits. he was treated with IV vancomycin and Zosyn. of note patient had recent admission earlier this month on M5 for depression with suicidal ideation. During that time he was evaluated by surgery for a right wrist wound that was not healing. He underwent skin graft on 04/20/2020. He was discharged from the hospital on 04/22/2020. He has not continued to take medications that were started on the psychiatric floor nor has he followed up with surgery. Review of Systems Review of Systems: Yes all other systems are reviewed and are negative Constitutional: Constitutional: Denies chills and Denies fever(s) Cardiovascular: Cardiovascular: Denies chest pain Respiratory: Respiratory: Denies cough Gastrointestinal: Gastrointestinal: Denies abdominal pain [facility] Medical History (Updated 05/16/20 @ 14:54 by Kendal Alanis MD) HCV (hepatitis C virus) IVDU (intravenous drug user) Major depressive disorder, recurrent severe without psychotic features Normocytic anemia Polysubstance abuse Functional capacity: independent ambulation Family History Sister Schizophrenia Pertinent family history: no history of diabetes, stroke. Uncle had history of PA Family history: reviewed and not pertinent Surgical History History of incision and drainage S/P split thickness skin graft Social History Household Members: None Housing: Homeless Alcohol intake: current Alcohol intake frequency: holidays/special occasions only Smoking Status: Current every day smoker Tobacco Type: Cigarette Packs Per Day: 20 Cigarettes Per Day: 400.0 Years Smoked: 15 Smoked in Last 30 Days: Yes Second Hand Smoke Exposure: Yes Use of substances other than those prescribed or required for medical reasons: Yes Substance Use Type: Crack/Cocaine and Heroin Substance Use Frequency: Chronic Longstanding Advance Directives: No Advance Directives Information Provided: No service: No Sexual orientation: Straight/Heterosexual Meds Allergies Allergy/AdvReac Type Severity Reaction Status Date / Time No Known Allergies Allergy Verified 04/07/20 21:02 [No Known Allergies*] Physical Exam Vital Signs and Narrative: Vital Signs: Last Vital Signs Temp 98.8 F 05/16/20 08:11 Pulse 85 05/16/20 08:11 Resp 16 05/16/20 09:53 BP 118/50 L 05/16/20 08:11 Pulse Ox 100 05/16/20 08:11 Body Mass Index 23.6 Const: General: alert, awake and poor hygiene Nutritional Appearance: well nourished Orientation/consciousness: patient oriented x3 HENMT: Head: Yes normocephalic and Yes atraumatic Eyes: Sclerae: sclerae normal Resp: Effort & Inspection: normal respiratory effort and no respiratory distress Auscultation: clear to auscultation bilaterally Cardio: Rate: regular rate Rhythm: regular rhythm GI: Palpation (GI): Soft to palpation and nontender Skin: Other: General skin exam: Excoriation and other (s/p skin graft right wrist) Neuro: General: patient oriented x3 Cranial nerves: Yes CN's II-XII intact bilaterally and Yes Bilaterally intact EOM present Results Labs CBC and Chem 7: 05/16/20 08:52 05/16/20 08:52 Labs: Laboratory Results - last 24 hr 05/16/20 05/16/20 05/16/20 08:52 08:52 08:52 MCV 87.1 MCH 27.6 MCHC 31.6 RDW 14.9 Plt Count 125 L D MPV 13.0 H Immature Gran % (Auto) 0.5 H Neut % (Auto) 67.2 Lymph % (Auto) 24.3 [place] % (Auto) 7.0 Eos % (Auto) 0.6 Baso % (Auto) 0.4 Lymph # (Auto) 2.7 [place] # (Auto) 0.8 Eos # (Auto) 0.1 Baso # (Auto) 0.0 Abs Immat Gran (auto) 0.05 H Absolute Neuts (auto) 7.3 Absolute Nucleated RBC 0.000 Nucleated RBC % (auto) 0.0 Smear Tech's Comments VERIFIED PT 14.4 H INR 1.2 H Anion Gap 12 Estim Creat Clear Calc 107.4 Estimated GFR > 60 Random Glucose 96 Lactic Acid Calcium 8.5 D Magnesium 1.8 Total Bilirubin 0.5 Direct Bilirubin 0.3 AST 22 ALT 204 H Alkaline Phosphatase 128 H D Total Protein 6.8 Albumin 3.6 COVID-19 ([facility]) COVID-19 Clin Com 05/16/20 05/16/20 08:52 09:43 MCV MCH MCHC RDW Plt Count MPV Immature Gran % (Auto) Neut % (Auto) Lymph % (Auto) [place] % (Auto) Eos % (Auto) Baso % (Auto) Lymph # (Auto) [place] # (Auto) Eos # (Auto) Baso # (Auto) Abs Immat Gran (auto) Absolute Neuts (auto) Absolute Nucleated RBC Nucleated RBC % (auto) Smear Tech's Comments PT INR Anion Gap Estim Creat Clear Calc Estimated GFR Random Glucose Lactic Acid 1.1 Calcium Magnesium Total Bilirubin Direct Bilirubin AST ALT Alkaline Phosphatase Total Protein Albumin COVID-19 ([facility]) Negative COVID-19 Clin Com See Note Imaging Radiologist's Impressions: Impressions Lower Extremity CT 05/16/20 08:30 IMPRESSION: * Diffuse edema of subcutaneous tissues of the extremity could represent cellulitis. No soft tissue abscess. Also, no overt imaging findings of fasciitis or myositis. * A trace amount of fluid is present within the right knee joint. There are no findings of a septic knee joint. No periarticular osteoporosis, erosion or periostitis. No evidence of osteomyelitis in the extremity. * No superficial or deep vein thrombosis in the extremity. Venous Duplex 05/16/20 08:30 IMPRESSION: No acute DVT demonstrated in the right lower extremity. Prominent right inguinal lymph nodes with cortical thickening. Assessment and Plan (1) Normocytic anemia: Status: Acute (2) Thrombocytopenia: Status: Acute (3) Polysubstance abuse: Status: Inactive (4) Cellulitis: Status: Acute this is a 35-year-old homeless male with a history polysubstance abuse who presents to the emergency department with hardness, swelling and pain of his right knee found to have cellulitis right lower extremity cellulitis in the setting of IVDU no evidence of sepsis. CT shows no evidence of septic joint or abscess US negative for DVT continue IV vancomycin, Zosyn Infectious disease consult Follow-up blood cultures polysubstance abuse no longer taking Suboxone withdrawal at this time will consult Addiction Medicine s/p right skin graft 04/20 has had no surgical follow-up will consult general surgery thrombocytopenia plt 125 follow CBC normocytic anemia chronic follow cbc tobacco dependence smoking cessation advised NRT Mild hyponatremia IVF Follow BMP HCV Outpatient FU dvt ppx-lovenox code status -full code this case was discussed with Dr. Zhu
[2020-05-16] MEDS: Nicotine 21 MG PATCH.TD24 TRANSDERMA (13:07)
--- NOTE | 2020-05-16 14:27 | MHC.CM.PN ---
UX DEVELOPER DESIGNER NOTE ELECTRONIC MEDICAL RECORD REVIEWED , PER DOCUMENTATION (PATIENT WITH RECENT HX OF M5 ADMISSION, NON COMPLIANCE WITH DC/PSYCH MEDS,F/U ALSO HAS SKIN GRAFT DID NOT F/U.) HOMELESS, INDEPENDENT IN ALDS AND MOBILITY, NO PCP, REPORTS TAKING IV COCAINE AND HEROIN LAST NIGHT PATIENT REPORTS HE DOES NOT FOLLOW WITH ANY PCP OR PSYCHIATRIST , HE DID NOT FILL THE PRESCRIPTIONS FROM HIS LAST ADMISSION. HE HAS A HISTORY OF BEING N METHADONE BUT NO LONGER PATIENT VERY VAGUE WITH HIS ANSWERING.OF QUESTIONS PER DOCUMENTATION IV ABX X2, IV FLUIDS BOOD CULTURES TAKEN PHYSICIAN ORDERED TIRSO OZUNA AND ID, AND SURGICAL CONSULTS , REFERRAL TO THE CARES TEAM PHOTORESIST PRINTER TO CONTINUE TO FOLLOW DISCHARGE PL5AN TO BE FURTHER DETERMINED AFTER CONSULTS 1 PT WILL NEED PCP 2.CARE TEAM RECOMMENDATIONS 3, Tracy OZUNA RECOMMENDATIONS 4.PSYCHIATRY RECOMMENDATIONS 5 SURGICAL F/U RECOMMENDATIONS
--- NOTE | 2020-05-16 14:45 | W.PM.IDCN ---
History of Present Illness Data of Consult Service Date: 05/16/20 Requesting physician: Marco Antonio Zhu Primary Care Provider: No Physician HPI Reason for consult: right knee swelling He presents to hospital with pain and swelling right knee for a week He said he had a cyst on the knee and became more red He says he can bend knee but pain anteriorly He has no fever or chills He is on Suboxone according to chart He uses IV heroin and cocaine but denies injecting in area He doesnt know if has Hepatitis C,but I see positive serology in chart He had skin graft before to wrist Review of Systems Review of Systems: Yes all other systems are reviewed and are negative [facility] Past Medical History Medical History (Updated 05/21/20 @ 08:30 by Yessy Gay CNP) HCV (hepatitis C virus) IVDU (intravenous drug user) Major depressive disorder, recurrent severe without psychotic features Normocytic anemia Opiate addiction Polysubstance abuse Functional capacity: independent ambulation Family History Family History Sister Schizophrenia Family history: reviewed and not pertinent Surgical History Surgical History (Updated 05/16/20 @ 15:54 by Wilber Hurst MD) History of incision and drainage S/P split thickness skin graft Social History Social History Household Members: None Housing: Homeless Alcohol intake: current Alcohol intake frequency: holidays/special occasions only Smoking Status: Current every day smoker Tobacco Type: Cigarette Packs Per Day: 1 Cigarettes Per Day: 20.0 Years Smoked: 15 Second Hand Smoke Exposure: Yes Substance Use Type: Crack/Cocaine and Heroin service: No Sexual orientation: Straight/Heterosexual Meds Allergies Allergy/AdvReac Type Severity Reaction Status Date / Time No Known Allergies Allergy Verified 04/07/20 21:02 [No Known Allergies*] Physical Exam Vital Signs: Vital Signs: Last Vital Signs Temp 99.1 F 05/16/20 14:00 Pulse 56 05/16/20 14:00 Resp 20 05/16/20 14:00 BP 96/47 L 05/16/20 14:00 Pulse Ox 97 05/16/20 14:00 Body Mass Index 23.6 Const: General: cooperative Orientation/consciousness: oriented to person, oriented to place and oriented to time HENMT: Head: Yes normal to inspection Mouth: Normal oral and palatal mucosa present Eyes: General: appearance normal, both eyes and all related structures Resp: Effort & Inspection: normal respiratory effort Cardio: Rate: regular rate Rhythm: regular rhythm GI: Palpation (GI): Soft to palpation and nontender Skin: General skin exam: no rashes or lesions noted Neuro: General: oriented to person, oriented to place, oriented to time, tone normal and moves all extremities Extrem: Other: swelling and erythema prepatellar area some erythema joint moves well and no prepatellar bursitis Assessment and Plan (1) Cellulitis of knee, right: Status: Acute IV Vancomycin until better or signs out AMA whichever comes first and then po Doxycycline for 2 weeks Orthopedics if not improving F/U Hepatitis C outpatient Results Labs CBC & Chem 7: 05/21/20 06:30 05/21/20 06:30 Labs: Short CBC 05/16/20 Range/Units 08:52 WBC 10.9 H (4.8-10.8) X10*3/uL Hgb 10.5 L (14.0-18.0) g/dl Hct 33.2 L (42-52) % Plt Count 125 L D (160-400) X10*3/uL BMP 05/16/20 08:52 Sodium 130 L Potassium 4.9 Chloride 95 L Carbon Dioxide 28 BUN 23 H Creatinine 0.96 Calcium 8.5 D Liver Function 05/16/20 Range/Units 08:52 Total Bilirubin 0.5 (0.0-1.0) mg/dL Direct Bilirubin 0.3 (0.0-0.5) mg/dL AST 22 (5-37) U/L ALT 204 H (0-40) U/L Alkaline Phosphatase 128 H D (39-117) U/L Albumin 3.6 (3.5-5.0) g/dL
--- NOTE | 2020-05-16 14:52 | PM.EVENT ---
Event Note Date of Service: 05/16/20 Event Note: admission note the patient was seen and evaluated with TRISTAN Tran. I agree with her note, assessment and plan with the following. In summary, a 35 years old male with PMH of IV drug abuse who presents to the hospital complaining of right lower extremity pain and swelling mainly around the knee. The pain started 3-4 days ago and has been getting worse since then associated with chills and feeling weak. The leg on exam is edematous, tender, warm with area of redness around the right knee and a puncture wound draining blood. He denies injecting any drugs to his knees. Ultrasound in the emergency negative for DVT. CT scan showing soft-tissue edema but no facial itis or septic changes in the knee. Right lower extremity cellulitis High risk for MDR Start broad-spectrum antibiotic of vancomycin and Zosyn To get ID and surgery consult To follow blood cultures to use oxycodone and morphine for pain Given gentle hydration Rest of evaluations by TRISTAN note.
[2020-05-16] MEDS: 0.9 % Sodium Chloride Flush 3 ML SYRINGE IVFLUSH ×2 (15:20→22:30)
[2020-05-16] MEDS: 0.9 % Sodium Chloride 1,000 ML 100 ML IVCONT ×2 (15:24→23:56)
--- NOTE | 2020-05-16 15:42 | P.CONGS_ITS ---
History of Present Illness Consult details Consult date: 05/16/20 Reason for consult: wound care Narrative: 35-year-old male patient presenting for evaluation of pain and swelling of the right knee leg and knee. Patient is known to me for a prior ulceration and nonhealing wound involving the a right wrist. He is status post split-thickness skin graft placement to the right wrist from the right thigh. The patient never followed up for postoperative care and returns today for an unrelated reason. He reports the swelling began as a cyst on the knee which inc reased in size and became more painful necessitating the visit to the emergency department. He is now admitted to the hospitalist service for management of the right knee cellulitis. He has a history of IV drug abuse and was previously started on Suboxone although the current status of this is uncertain. He denies IV drug use into the area of infection. Review of Systems Review of Systems: Yes Unobtainable due to mental status PMFSH Past Medical History Medical History HCV (hepatitis C virus) IVDU (intravenous drug user) Major depressive disorder, recurrent severe without psychotic features Normocytic anemia Polysubstance abuse Functional capacity: independent ambulation Family History Family History Sister Schizophrenia Family history: reviewed and not pertinent Surgical History Surgical History History of incision and drainage S/P split thickness skin graft Social History Social History Household Members: None Housing: Homeless Alcohol intake: current Alcohol intake frequency: holidays/special occasions only Smoking Status: Current every day smoker Tobacco Type: Cigarette Packs Per Day: 20 Cigarettes Per Day: 400.0 Years Smoked: 15 Smoked in Last 30 Days: Yes Second Hand Smoke Exposure: Yes Use of substances other than those prescribed or required for medical reasons: Yes Substance Use Type: Crack/Cocaine and Heroin Substance Use Frequency: Chronic Longstanding Advance Directives: No Advance Directives Information Provided: No service: No Sexual orientation: Straight/Heterosexual Meds Allergies Allergy/AdvReac Type Severity Reaction Status Date / Time No Known Allergies Allergy Verified 04/07/20 21:02 [No Known Allergies*] Physical Exam Vital Signs: Vital Signs: Last Vital Signs Temp 98.3 F 05/16/20 15:32 Pulse 70 05/16/20 15:32 Resp 19 05/16/20 15:32 BP 102/52 L 05/16/20 15:32 Pulse Ox 98 05/16/20 15:32 Body Mass Index 23.6 Const: General: lethargic, patient obtunded, poor hygiene and tired appearing Nutritional Appearance: thin Orientation/consciousness: patient obtunded and lethargic Eyes: Sclerae: sclerae normal EOM: EOMs intact bilaterally Neck: Neck: Yes normal visual inspection Resp: Effort & Inspection: normal respiratory effort, no cough and no respiratory distress Cardio: Jugular venous distension: no JVD Rate: regular rate Rhythm: regular rhythm GI: Inspection: Yes normal to inspection Palpation (GI): Soft to palpation, nontender, no guarding and not rigid Percussion: Yes normal to percussion Auscultation: normal bowel sounds Skin: General skin exam: dry skin Rashes: no rashes Neuro: General: no focal motor deficits and patient obtunded Extrem: Other: Right wrist skin graft is intact and completely healed. Graft is crusty but no open areas are identified. No residual sutures are appreciated as well. Right knee with an area of erythema, edema, and several areas of skin breakdown, very tender to palpation. No definite areas of fluctuance identified. Some edema noted down into the foot and ankle but normal range of motion of the foot and ankle. Left lower extremity: edema ( cellulitis and edema noted around the knee) Knee images: 1. Area of cellulitis and edema Results Labs Result diagrams: 05/16/20 08:52 05/16/20 08:52 Labs: Abnormal lab results 05/16/20 05/16/20 05/16/20 Range/Units 08:52 08:52 08:52 WBC 10.9 H (4.8-10.8) X10*3/uL RBC 3.81 L (4.60-5.80) X10*6/uL Hgb 10.5 L (14.0-18.0) g/dl Hct 33.2 L (42-52) % Plt Count 125 L D (160-400) X10*3/uL MPV 13.0 H (9.4-12.4) fL Immature Gran % (Auto) 0.5 H (0.0-0.4) % Abs Immat Gran (auto) 0.05 H (0.00-0.03) X10*3/uL PT 14.4 H (10.8-13.0) SEC INR 1.2 H (0.9-1.1) Sodium 130 L (135-145) mmol/L Chloride 95 L (96-108) mmol/L BUN 23 H (9-16) mg/dL ALT 204 H (0-40) U/L Alkaline Phosphatase 128 H D (39-117) U/L Short CBC 05/16/20 Range/Units 08:52 WBC 10.9 H (4.8-10.8) X10*3/uL Hgb 10.5 L (14.0-18.0) g/dl Hct 33.2 L (42-52) % Plt Count 125 L D (160-400) X10*3/uL BMP 05/16/20 08:52 Sodium 130 L Potassium 4.9 Chloride 95 L Carbon Dioxide 28 BUN 23 H Creatinine 0.96 Calcium 8.5 D Liver Function 05/16/20 Range/Units 08:52 Total Bilirubin 0.5 (0.0-1.0) mg/dL Direct Bilirubin 0.3 (0.0-0.5) mg/dL AST 22 (5-37) U/L ALT 204 H (0-40) U/L Alkaline Phosphatase 128 H D (39-117) U/L Albumin 3.6 (3.5-5.0) g/dL All other labs normal. Assessment and Plan (1) Cellulitis of knee, right: Status: Acute marked edema and erythema involving the right knee with tenderness to palpation. No definite areas of fluctuance are appreciated. Patient admitted for IV antibiotics. (2) No history of previous surgery: Status: Acute Patient is status post split-thickness skin graft from right hip to right wrist on 04/20/2020. Patient was an inpatient on and 5 at the time but was subsequently discharged to a care home. The patient failed to return for postoperative evaluation in the office. Examination today does reveal a crusty but intact skin graft. No further surgical intervention is anticipated to the right wrist.
--- NOTE | 2020-05-16 15:54 | MHC.CARE ---
CARE team rec consult for pt who arrived to the ED this am and shortly after arrival to med floor consult was placed for pts reported IVDA (and subsequent infection) as well as reported noncompliance with psych meds after being discharged from on 04/22 for admission for depression and suicidal ideation. T/w attempted to interview pt today however pt stated he just wanted to sleep and im in too much pain to talk. T/w made inquiry if pt in fact not follow up w meds as ordered and he replied no and stated he never did. Pt would not speak further. T/w alerted CM that due to above pt is not able to be interviewed. Unclear as of this moment if pt will be in need of a crisis evaluation or is further consultation after infection treated for medication review due to lack of adherence. Contact CARE team when pt is ready to discuss further.
[2020-05-16] MEDS: Docusate Sodium 100 MG CAPSULE PO (22:28)
[2020-05-17] MEDS: oxyCODONE HCl Immed Release 5 MG TABLET PO ×4 (01:17→23:42)
[2020-05-17] MEDS: Morphine Sulfate 4 MG/ML CARTRIDGE IVPUSH ×6 (03:16→22:27)
[2020-05-17] MEDS: Docusate Sodium 100 MG CAPSULE PO ×2 (07:24→22:27)
[2020-05-17] MEDS: Acetaminophen 325 MG TABLET 650 MG PO ×3 (07:24→23:43)
[2020-05-17 07:39] LABS: Basophils Percent Auto 0.5 % (0-2); Eosinophils Absolute Auto 0.1 X10*3/uL (0.0-0.4); Eosinophils Percent Auto 1.1 % (0-4); Hematocrit 32.2 % (42-52); Imm Gran Abs Auto 0.02 X10*3/uL (0.00-0.03); Imm Gran Pct Auto 0.2 % (0.0-0.4); Lymphocytes Absolute Auto 2.9 X10*3/uL (1.2-4.9); Lymphocytes Percent Auto 34.4 % (20-40); Mean Corpuscular HGB Conc 31.1 g/dl (31.0-36.0); Mean Corpuscular Hemoglobin 27.2 pg (27.0-33.0); Mean Corpuscular Volume 87.5 fL (80-98); Mean Platelet Volume 12.3 fL (9.4-12.4); Monocytes Absolute Auto 0.6 X10*3/uL (0.1-1.2); Monocytes Percent Auto 7.5 % (2-11); Neutrophils Absolute Auto 4.7 X10*3/uL (2.0-8.3); Neutrophils Percent Auto 56.3 % (45-73); Platelet Count 127 X10*3/uL (160-400); Red Blood Count 3.68 X10*6/uL (4.60-5.80); White Blood Count 8.3 X10*3/uL (4.8-10.8)
[2020-05-17 07:40] LABS: MANUAL DIFF FLAG NO
[2020-05-17 08:00] VITALS: BP 118/61; PULSE 63; RESP 20; TEMP 37; O2SAT 96
[2020-05-17 08:41] LABS: Anion Gap 9 (12-20); Blood Urea Nitrogen 8 mg/dL (9-16); Calcium 7.7 mg/dL (8.4-10.2); Carbon Dioxide 29 mmol/L (22-29); Chloride 105 mmol/L (96-108); Creatinine Clr Calc Pharmacy 130.5; Estimated Glomerular Filt Rate > 60; Glucose Random 112 mg/dL (60-115); Potassium 4.5 mmol/l (3.3-5.1); Sodium 138 mmol/L (135-145)
--- NOTE | 2020-05-17 09:07 | PM.PNGS ---
Subjective Subjective Date of Service: 05/17/20 Interval history: I feel like cp, no new complaints. Patient very sleepy but arousable. Physical Exam Vital Signs: Vital Signs: Last Vital Signs Temp 98.6 F 05/17/20 08:00 Pulse 63 05/17/20 08:00 Resp 20 05/17/20 08:00 BP 118/61 05/17/20 08:00 Pulse Ox 96 05/17/20 08:00 Body Mass Index 23.6 Const: General: no acute distress and lethargic Orientation/consciousness: lethargic Resp: Effort & Inspection: normal respiratory effort and no cough Skin: Wounds: no wounds (right knee, less erythema, minimal edema) Extrem: Other: skin graft site clean, crusty Progress Note: A&P Assessment and plan (1) Cellulitis of knee, right: Status: Acute Assessment and Plan: patient continues to have pain in the right knee but overall the wound appears improved this morning with decreased erythema. Patient remains obtunded but does respond to voice. Continue antibiotics as per hospitalist team Fall Risk Details Current Medications: Current Medications Generic Name Dose Route Start Last Admin Trade Name Freq PRN Reason Stop Dose Admin Acetaminophen 650 mg 05/16/20 14:12 05/17/20 07:24 Acetaminophen 325 Mg Tablet PO 650 mg Q6H PRN Administration Pain, Mild (Pain Scale 1-3) Docusate Sodium 100 mg 05/16/20 21:00 05/17/20 07:24 Docusate Sodium 100 Mg Capsule PO 100 mg BID SETH Administration Enoxaparin Sodium 40 mg 05/16/20 15:00 05/16/20 15:20 Enoxaparin Sodium 40 Mg/0.4 Ml Syringe SUBCUT Not Given Q24H SETH Vancomycin HCl 750 mg/ 275 mls @ 183.333 mls/hr 05/16/20 22:00 05/17/20 00:25 Vancomycin HCl 500 mg/ Sodium IV Infused Chloride Q12H SETH Infusion Sodium Chloride 1,000 mls @ 100 mls/hr 05/16/20 15:00 05/16/20 23:56 Ns IVCONT 100 mls/hr .Q10H SETH Administration Morphine Sulfate 4 mg 05/16/20 14:20 05/17/20 07:23 Morphine Sulfate 4 Mg/Ml Cartridge IVPUSH 4 mg Q4H PRN Administration Pain, Severe (Pain Scale 7-10) Ondansetron HCl 4 mg 05/16/20 14:12 Ondansetron Hcl 4 Mg/2 Ml Vial IVPUSH Q8H PRN Nausea and Vomiting Oxycodone HCl 5 mg 05/16/20 11:58 05/17/20 07:25 Oxycodone Hcl Immed Release 5 Mg Tablet PO 5 mg Q6H PRN Administration Pain, Severe (Pain Scale 7-10) Pharmacy Consult 1 each 05/16/20 09:49 Consult Rx Perform Med Rec MISCELLANE ONCE PRN Consult order Pharmacy Consult 1 each 05/16/20 11:58 Consult Rx Vancomycin Dosing MISCELLANE DAILY PRN Consult order Sodium Chloride 3 ml 05/16/20 16:00 05/17/20 07:25 0.9 % Sodium Chloride Flush 3 Ml Syringe IVFLUSH Not Given QSHIFT SETH Time Spent With Patient Time: Total time spent is greater than 50% in coordination of care (as documented) at patient's floor/unit and/or counseling patient: Time with patient: less than 15 minutes
[2020-05-17] MEDS: 0.9 % Sodium Chloride 1,000 ML 100 ML IVCONT ×2 (09:54→22:27)
--- NOTE | 2020-05-17 11:39 | HO.PM.IMPN ---
Subjective Subjective Date of Service: 05/17/20 Interval History: the patient was seen and evaluated this morning Laying in bed, complaining of pain in his leg, feels sleepy and tired Denies any fever, chills or shortness of breath No reported other overnight events. Systemic review: No fever, chills or weakness No chest pain, palpitation No shortness of breath or coughing No abdominal pain, nausea or vomiting No urinary symptoms right lower extremity pain Physical Exam Vital Signs: Vital Signs: Last Vital Signs Temp 98.6 F 05/17/20 08:00 Pulse 63 05/17/20 08:00 Resp 20 05/17/20 08:00 BP 118/61 05/17/20 08:00 Pulse Ox 96 05/17/20 08:00 Body Mass Index 23.6 Constitutional : Alert, oriented, not in distress Neck : Normal inspection, Supple Cardiovascular : RRR, S1 S2, no lower extremity edema Respiratory : Good bilateral air entry, no crackles, wheezes or rhonchi Gastrointestinal: soft, lax, Normal bowel sounds, Non tender Skin : Warm/Dry, right lower extremity edema and warmth, skin surrounding the right knee is edematous, warm and tender to touch with no clear drainage noted. He has decreased range of motion in the knee but no pain in the knee itself. Seems stable maybe little better since yesterday. Neurological : Alert & oriented x3, No focal deficit Objective Data Current Medications Generic Name Dose Route Start Last Admin Trade Name Freq PRN Reason Stop Dose Admin Acetaminophen 650 mg 05/16/20 14:12 05/17/20 07:24 Acetaminophen 325 Mg Tablet PO 650 mg Q6H PRN Administration Pain, Mild (Pain Scale 1-3) Docusate Sodium 100 mg 05/16/20 21:00 05/17/20 07:24 Docusate Sodium 100 Mg Capsule PO 100 mg BID SETH Administration Enoxaparin Sodium 40 mg 05/16/20 15:00 05/16/20 15:20 Enoxaparin Sodium 40 Mg/0.4 Ml Syringe SUBCUT Not Given Q24H SETH Vancomycin HCl 750 mg/ 275 mls @ 183.333 mls/hr 05/16/20 22:00 05/17/20 09:53 Vancomycin HCl 500 mg/ Sodium IV 183.3 mls/hr Chloride Q12H SETH Administration Sodium Chloride 1,000 mls @ 100 mls/hr 05/16/20 15:00 05/17/20 09:54 Ns IVCONT 100 mls/hr .Q10H SETH Administration Morphine Sulfate 4 mg 05/16/20 14:20 05/17/20 07:23 Morphine Sulfate 4 Mg/Ml Cartridge IVPUSH 4 mg Q4H PRN Administration Pain, Severe (Pain Scale 7-10) Ondansetron HCl 4 mg 05/16/20 14:12 Ondansetron Hcl 4 Mg/2 Ml Vial IVPUSH Q8H PRN Nausea and Vomiting Oxycodone HCl 5 mg 05/16/20 11:58 05/17/20 07:25 Oxycodone Hcl Immed Release 5 Mg Tablet PO 5 mg Q6H PRN Administration Pain, Severe (Pain Scale 7-10) Pharmacy Consult 1 each 05/16/20 09:49 Consult Rx Perform Med Rec MISCELLANE ONCE PRN Consult order Pharmacy Consult 1 each 05/16/20 11:58 Consult Rx Vancomycin Dosing MISCELLANE DAILY PRN Consult order Sodium Chloride 3 ml 05/16/20 16:00 05/17/20 07:25 0.9 % Sodium Chloride Flush 3 Ml Syringe IVFLUSH Not Given QSHIFT [facility] Labs CBC & Chem 7: 05/17/20 07:17 05/17/20 07:17 Microbiology Microbiology Results: Microbiology 05/16/20 09:29 Blood - Arterial Blood Culture - Preliminary No growth after 24 hours. 05/16/20 08:52 Blood - Arterial Blood Culture - Preliminary Assessment and Plan (1) Normocytic anemia: Status: Acute (2) Thrombocytopenia: Status: Acute (3) Polysubstance abuse: Status: Inactive (4) Cellulitis: Status: Acute (5) Opiate addiction: Status: Acute (6) Cellulitis of knee, right: Status: Acute Assessment and Plan: this is a 35-year-old homeless male with a history polysubstance abuse who presents to the emergency department with hardness, swelling and pain of his right knee found to have cellulitis right lower extremity cellulitis In the setting of IVDU No sepsis CT shows no evidence of septic joint or abscess US negative for DVT Continue IV vancomycin, Zosyn Infectious disease input appreciated pending blood cultures use morphine as needed for pain polysubstance abuse no longer taking Suboxone which forwithdrawal at this time, on pain medications at this point to consult psych before discharge s/p right skin graft 04/20 has had no surgical follow-up general surgery input appreciated, no intervention needed at this point thrombocytopenia stable follow CBC normocytic anemia chronic follow cbc tobacco dependence smoking cessation advised NRT Mild hyponatremia resolving IV fluid Follow BMP HCV Outpatient FU dvt ppx lovenox
[2020-05-17 11:46] VITALS: BP 119/67; PULSE 59; RESP 18; TEMP 36.5; O2SAT 97
--- NOTE | 2020-05-17 11:49 | MHC.CARE ---
Attempted to speak with patient, he was unable to engaged, was moaning said he is in pain with eyes closed with covers pulled up to chin. Advised that CARE team is available if he feels better today but would check in tomorrow. Communicated with RN via [place] [employer]
--- NOTE | 2020-05-17 13:30 | MHC.CM.PN ---
NURSE MANAGER PRINTING NOTE ELECTRONIC MEDICAL RECORD REVIEWED ALONG WITH CASE DISCUSSED WITH STAFF NURSE . PATIENT IS MORE AWAKE TODAY BUT STILL VERY TIRED AND SLEEPY. PER DOCUMENTATION ( RIGHT KNEE IS EDEMATOUS, WARM AND PAINFUL WITH DECREASED RANGE OF MOTION IN THE KNEE ,AND COMPAINING OF LEG PAIN AND CELLULITES RIGHT LOWER EXTREMITY. PLAN OF CARE PER DOCUMENTATION CONTINUE IV ANTIBIOTICS VANCOMYCIN AND ZOSYN, PENDING BLOOD CUTURE RE CONSULT PSYCH BEFORE DISCHARGE , CARE TEAMS TO RE-EVALUATE WHEN PATIENT IS MORE AWAKE AND CONVERSATIONAL.. SURGEON EVALUATED S/P RIGHT SKIN GRAFT SITE NO INTERVENTION REQUIRED AT THIS TIME DISCHARGE PLAN CARES TEAMS T RE ASSESS ONCE MORE AWAKE, ID RECOMMENDATIONS AT TIME OF DISCHARGE PSYCH TIRSO OZUNA REGARDING PSYCH MEDICATIONS AND SUBOXONE PATIENT IS HOMELESS, POLYSUBSTANCE IV ABUSE,HX OF NON COMPLIANCE WITH PSYCH MEDICATIONS BEING FILLED WHEN RECENTY DISCHARGED FROM [facility] PATIENT HAS NO PCP AND IS NOT INTERESTED IN OBTAING ONE AT THIS TIME
[2020-05-17 15:38] VITALS: BP 134/58; PULSE 62; RESP 18; TEMP 36.8; O2SAT 98
[2020-05-17 18:55] VITALS: BP 127/66; PULSE 69; RESP 20; TEMP 36.6; O2SAT 99
[2020-05-17 22:06] LABS: Vancomycin Trough 6.2 mcg/mL (10.0-20.0)
[2020-05-17] MEDS: vancomycin HCL 1,000 MG in 0.9 % Sodium Chloride 250 ML 270 MG IV (22:40)
[2020-05-17 23:48] VITALS: BP 142/65; PULSE 65; RESP 20; TEMP 37; O2SAT 98
[2020-05-18] VITALS (8 sets, daily range): BP systolic 107–134; BP diastolic 54–71; PULSE 52–73; RESP 18–20; TEMP 36.3–37.3; O2SAT 96–100
[2020-05-18] MEDS: Morphine Sulfate 4 MG/ML CARTRIDGE IVPUSH ×5 (02:26→20:13)
[2020-05-18] MEDS: vancomycin HCL 1,000 MG in 0.9 % Sodium Chloride 250 ML 100 MG IV (06:12)
[2020-05-18] MEDS: oxyCODONE HCl Immed Release 5 MG TABLET PO ×3 (06:14→23:30)
[2020-05-18] MEDS: Acetaminophen 325 MG TABLET 650 MG PO (06:15)
[2020-05-18] MEDS: Docusate Sodium 100 MG CAPSULE PO ×2 (07:51→20:09)
[2020-05-18] MEDS: 0.9 % Sodium Chloride Flush 3 ML SYRINGE IVFLUSH ×2 (07:51→20:14)
[2020-05-18] MEDS: 0.9 % Sodium Chloride 1,000 ML 100 ML IVCONT ×2 (09:33→19:47)
--- NOTE | 2020-05-18 11:26 | PC.NURSE ---
Pt refusing blood work, stated he will let staff know when he is ready. Dr. Vallecillo made aware. Will continue to educate pt on need for blood work to be completed.
--- NOTE | 2020-05-18 11:49 | MHC.CM.PN ---
PER PHYSICIAN ROUNDS, PATIENT MAY BE SEEN TODAY FOR DRAIN OF RIGHT KNEE. CASE MANAGEMENT FOLLOWING FOR DC PLAN
--- NOTE | 2020-05-18 12:51 | PM.PNGS ---
Subjective Subjective Date of Service: 05/18/20 Interval history: Reports continued pain in the right knee. Physical Exam Vital Signs: Vital Signs: Last Vital Signs Temp 97.9 F 05/18/20 11:37 Pulse 61 05/18/20 11:37 Resp 20 05/18/20 11:37 BP 113/58 L 05/18/20 11:37 Pulse Ox 100 05/18/20 11:37 Body Mass Index 23.6 Const: General: lethargic, patient obtunded, poor hygiene and tired appearing Nutritional Appearance: thin Orientation/consciousness: patient obtunded and lethargic Resp: Effort & Inspection: normal respiratory effort GI: Inspection: Yes normal to inspection and No distended Palpation (GI): nontender Neuro: General: patient obtunded Extrem: Other: Right knee with 2 areas of fluctuance noted over the patella suggestive of an underlying fluid collection or abscess. Surrounding erythema appears improved however. Right knee remains edematous. Progress Note: A&P Assessment and plan (1) Cellulitis of knee, right: Status: Acute Assessment and Plan: Patient appears to have an abscess in the right knee which may benefit from incision and drainage. Patient remains very sleepy /lethargic but is refusing to consent to incision and drainage at this time. He understands that he may have an abscess collection that may benefit from the procedure and improve his pain. He will not consent to the procedure which could be performed at the bedside. I would check back tomorrow to see if he changes his mind. Fall Risk Details Current Medications: Current Medications Generic Name Dose Route Start Last Admin Trade Name Freq PRN Reason Stop Dose Admin Acetaminophen 650 mg 05/16/20 14:12 05/18/20 06:15 Acetaminophen 325 Mg Tablet PO 650 mg Q6H PRN Administration Pain, Mild (Pain Scale 1-3) Docusate Sodium 100 mg 05/16/20 21:00 05/18/20 07:51 Docusate Sodium 100 Mg Capsule PO 100 mg BID SETH Administration Enoxaparin Sodium 40 mg 05/16/20 15:00 05/17/20 14:28 Enoxaparin Sodium 40 Mg/0.4 Ml Syringe SUBCUT Not Given Q24H SETH Sodium Chloride 1,000 mls @ 100 mls/hr 05/16/20 15:00 05/18/20 09:33 Ns IVCONT 100 mls/hr .Q10H SETH Administration Vancomycin HCl 1,000 mg/ 270 mls @ 270 mls/hr 05/17/20 23:00 05/18/20 08:58 Sodium Chloride IV Infused Q8H SETH Infusion Morphine Sulfate 4 mg 05/16/20 14:20 05/18/20 12:05 Morphine Sulfate 4 Mg/Ml Cartridge IVPUSH 4 mg Q4H PRN Administration Pain, Severe (Pain Scale 7-10) Ondansetron HCl 4 mg 05/16/20 14:12 Ondansetron Hcl 4 Mg/2 Ml Vial IVPUSH Q8H PRN Nausea and Vomiting Oxycodone HCl 5 mg 05/16/20 11:58 05/18/20 06:14 Oxycodone Hcl Immed Release 5 Mg Tablet PO 5 mg Q6H PRN Administration Pain, Severe (Pain Scale 7-10) Pharmacy Consult 1 each 05/16/20 09:49 Consult Rx Perform Med Rec MISCELLANE ONCE PRN Consult order Pharmacy Consult 1 each 05/16/20 11:58 Consult Rx Vancomycin Dosing MISCELLANE DAILY PRN Consult order Sodium Chloride 3 ml 05/16/20 16:00 05/18/20 07:51 0.9 % Sodium Chloride Flush 3 Ml Syringe IVFLUSH 3 ml QSHIFT SETH Administration Time Spent With Patient Time: Total time spent is greater than 50% in coordination of care (as documented) at patient's floor/unit and/or counseling patient: Time with patient: 25 - 35 minutes
--- NOTE | 2020-05-18 13:30 | HO.PM.IMPN ---
Subjective Subjective Date of Service: 05/18/20 Interval History: Patient seen and examined at bedside patient still reporting knee pain and swelling Constitutional Constitutional: Denies chills and Denies fever(s) Cardiovascular Cardiovascular: Denies chest pain Respiratory Respiratory: Denies cough Gastrointestinal Gastrointestinal: Denies abdominal pain Physical Exam Vital Signs: Vital Signs: Last Vital Signs Temp 97.9 F 05/18/20 11:37 Pulse 61 05/18/20 11:37 Resp 20 05/18/20 11:37 BP 113/58 L 05/18/20 11:37 Pulse Ox 100 05/18/20 11:37 Body Mass Index 23.6 Const: General: alert, awake and poor hygiene Nutritional Appearance: well nourished Orientation/consciousness: patient oriented x3 HENMT: Head: Yes normocephalic and Yes atraumatic Eyes: Sclerae: sclerae normal Resp: Effort & Inspection: normal respiratory effort and no respiratory distress Auscultation: clear to auscultation bilaterally Cardio: Rate: regular rate Rhythm: regular rhythm GI: Palpation (GI): Soft to palpation and nontender Neuro: General: patient oriented x3 Cranial nerves: Yes CN's II-XII intact bilaterally and Yes Bilaterally intact EOM present Objective Data Current Medications Generic Name Dose Route Start Last Admin Trade Name Freq PRN Reason Stop Dose Admin Acetaminophen 650 mg 05/16/20 14:12 05/18/20 06:15 Acetaminophen 325 Mg Tablet PO 650 mg Q6H PRN Administration Pain, Mild (Pain Scale 1-3) Docusate Sodium 100 mg 05/16/20 21:00 05/18/20 07:51 Docusate Sodium 100 Mg Capsule PO 100 mg BID SETH Administration Enoxaparin Sodium 40 mg 05/16/20 15:00 05/17/20 14:28 Enoxaparin Sodium 40 Mg/0.4 Ml Syringe SUBCUT Not Given Q24H SETH Sodium Chloride 1,000 mls @ 100 mls/hr 05/16/20 15:00 05/18/20 09:33 Ns IVCONT 100 mls/hr .Q10H SETH Administration Vancomycin HCl 1,000 mg/ 270 mls @ 270 mls/hr 05/17/20 23:00 05/18/20 08:58 Sodium Chloride IV Infused Q8H SETH Infusion Morphine Sulfate 4 mg 05/16/20 14:20 05/18/20 12:05 Morphine Sulfate 4 Mg/Ml Cartridge IVPUSH 4 mg Q4H PRN Administration Pain, Severe (Pain Scale 7-10) Ondansetron HCl 4 mg 05/16/20 14:12 Ondansetron Hcl 4 Mg/2 Ml Vial IVPUSH Q8H PRN Nausea and Vomiting Oxycodone HCl 5 mg 05/16/20 11:58 05/18/20 06:14 Oxycodone Hcl Immed Release 5 Mg Tablet PO 5 mg Q6H PRN Administration Pain, Severe (Pain Scale 7-10) Pharmacy Consult 1 each 05/16/20 09:49 Consult Rx Perform Med Rec MISCELLANE ONCE PRN Consult order Pharmacy Consult 1 each 05/16/20 11:58 Consult Rx Vancomycin Dosing MISCELLANE DAILY PRN Consult order Sodium Chloride 3 ml 05/16/20 16:00 05/18/20 07:51 0.9 % Sodium Chloride Flush 3 Ml Syringe IVFLUSH 3 ml QSHIFT SETH Administration Labs CBC & Chem 7: 05/17/20 07:17 05/17/20 07:17 Microbiology Microbiology Results: Microbiology 05/16/20 08:52 Blood - Arterial Blood Culture - Preliminary Streptococcus pyogenes (Grp A) 05/16/20 09:29 Blood - Arterial Blood Culture - Preliminary No growth after 48 hours. Assessment and Plan (1) Normocytic anemia: Status: Acute (2) Thrombocytopenia: Status: Acute (3) Polysubstance abuse: Status: Inactive (4) Cellulitis: Status: Acute (5) Opiate addiction: Status: Acute (6) Cellulitis of knee, right: Status: Acute Assessment and Plan: 35-year-old homeless male with a history polysubstance abuse who presents to the emergency department with hardness, swelling and pain of his right knee found to have cellulitis Right lower extremity cellulitis In the setting of IVDU US negative for DVT Continue IV vancomycin, Zosyn Infectious disease input appreciated pending blood cultures continue IV morphine as needed for pain general surgery following noted to have fluctuant swelling but patient refusing I&D today polysubstance abuse was on Suboxone in the past continue IV morphine for pain will get psych starting Suboxone once will wean down pain medication monitor for withdrawal s/p right skin graft 04/20 has had no surgical follow-up general surgery input appreciated, no intervention needed at this point thrombocytopenia stable follow CBC normocytic anemia chronic follow cbc tobacco dependence smoking cessation advised NRT Mild hyponatremia resolving IV fluid Follow BMP refusing blood work today HCV Outpatient FU dvt ppx lovenox
[2020-05-18] MEDS: cefTRIAXone sodium 1 GM in 0.9 % Sodium Chloride 50 ML IV (14:27)
[2020-05-18] MEDS: vancomycin HCL 1,000 MG in 0.9 % Sodium Chloride 250 ML 250 MG IV (15:21)
--- NOTE | 2020-05-18 15:24 | PM.EVENT ---
Event Note Date of Service: 05/18/20 Event Note: Group A strep bacteremia Continue Ceftriaxone alone Po Ceftin 500 mg bid 14 d outpatient
[2020-05-18 21:58] LABS: Vancomycin Trough 5.3 mcg/mL (10.0-20.0)
[2020-05-19] MEDS: Morphine Sulfate 4 MG/ML CARTRIDGE IVPUSH ×5 (00:22→16:32)
[2020-05-19] MEDS: 0.9 % Sodium Chloride 1,000 ML 100 ML IVCONT (03:37)
[2020-05-19 03:45] VITALS: BP 123/72; PULSE 82; RESP 20; TEMP 36.7; O2SAT 98
[2020-05-19] MEDS: ondansetron HCL 4 MG/2 ML VIAL IVPUSH ×2 (03:48→12:26)
[2020-05-19] MEDS: oxyCODONE HCl Immed Release 5 MG TABLET PO (06:28)
[2020-05-19 07:39] VITALS: BP 138/78; PULSE 50; RESP 20; TEMP 37.1; O2SAT 94
--- NOTE | 2020-05-19 07:57 | PM.PNGS ---
Subjective Subjective Date of Service: 05/19/20 Interval history: Patient more awake today, appears sweaty; evidence of emesis at the site of his bed. He reports decreased pain in the knee as the knee began to drain spontaneously overnight. Physical Exam Vital Signs: Vital Signs: Last Vital Signs Temp 98.7 F 05/19/20 07:39 Pulse 50 05/19/20 07:39 Resp 20 05/19/20 07:39 BP 138/78 05/19/20 07:39 Pulse Ox 94 05/19/20 07:39 Body Mass Index 23.6 Const: Other: Awake, diaphoretic Resp: Other: breathing comfortably on room air, no respiratory distress Skin: Other: right arm skin graft appears red and granulated, not sure of skin graft is remaining after his recent shower. Extrem: Other: Right knee with abscess x2 over the patella, evidence of purulence discharge from both sites from spontaneous drainage. Still some fluctuance and tender to palpation but less erythema. Progress Note: A&P Assessment and plan (1) Abscess of skin of right knee: Status: Acute Assessment and Plan: patient developed spontaneous drainage of the abscess of the right knee overnight. The abscess does appear softer but still may have some fluid within. He is refusing incision and drainage at this time. Overall the surrounding skin appears much improved. Fall Risk Details Current Medications: Current Medications Generic Name Dose Route Start Last Admin Trade Name Freq PRN Reason Stop Dose Admin Acetaminophen 650 mg 05/16/20 14:12 05/18/20 06:15 Acetaminophen 325 Mg Tablet PO 650 mg Q6H PRN Administration Pain, Mild (Pain Scale 1-3) Docusate Sodium 100 mg 05/16/20 21:00 05/18/20 20:09 Docusate Sodium 100 Mg Capsule PO 100 mg BID SETH Administration Enoxaparin Sodium 40 mg 05/16/20 15:00 05/18/20 15:24 Enoxaparin Sodium 40 Mg/0.4 Ml Syringe SUBCUT Not Given Q24H SETH Sodium Chloride 1,000 mls @ 100 mls/hr 05/16/20 15:00 05/19/20 03:37 Ns IVCONT 100 mls/hr .Q10H SETH Administration Ceftriaxone Sodium 1 gm/ 50 mls @ 100 mls/hr 05/18/20 14:00 05/18/20 15:30 Sodium Chloride IV Infused Q24H SETH Infusion Morphine Sulfate 4 mg 05/16/20 14:20 05/19/20 04:29 Morphine Sulfate 4 Mg/Ml Cartridge IVPUSH 4 mg Q4H PRN Administration Pain, Severe (Pain Scale 7-10) Ondansetron HCl 4 mg 05/16/20 14:12 05/19/20 03:48 Ondansetron Hcl 4 Mg/2 Ml Vial IVPUSH 4 mg Q8H PRN Administration Nausea and Vomiting Oxycodone HCl 5 mg 05/16/20 11:58 05/19/20 06:28 Oxycodone Hcl Immed Release 5 Mg Tablet PO 5 mg Q6H PRN Administration Pain, Severe (Pain Scale 7-10) Pharmacy Consult 1 each 05/16/20 09:49 Consult Rx Perform Med Rec MISCELLANE ONCE PRN Consult order Pharmacy Consult 1 each 05/16/20 11:58 Consult Rx Vancomycin Dosing MISCELLANE DAILY PRN Consult order Sodium Chloride 3 ml 05/16/20 16:00 05/18/20 20:14 0.9 % Sodium Chloride Flush 3 Ml Syringe IVFLUSH 3 ml QSHIFT SETH Administration Time Spent With Patient Time: Total time spent is greater than 50% in coordination of care (as documented) at patient's floor/unit and/or counseling patient: Time with patient: 15 - 24 minutes
[2020-05-19] MEDS: 0.9 % Sodium Chloride Flush 3 ML SYRINGE IVFLUSH ×2 (08:34→20:18)
[2020-05-19 09:31] LABS: MANUAL DIFF FLAG NO
[2020-05-19 09:36] LABS: Basophils Percent Auto 0.3 % (0-2); Hematocrit 33.7 % (42-52); Hemoglobin 10.7 g/dl (14.0-18.0); Imm Gran Abs Auto 0.03 X10*3/uL (0.00-0.03); Imm Gran Pct Auto 0.4 % (0.0-0.4); Lymphocytes Absolute Auto 1.2 X10*3/uL (1.2-4.9); Mean Corpuscular HGB Conc 31.8 g/dl (31.0-36.0); Mean Corpuscular Hemoglobin 27.6 pg (27.0-33.0); Mean Corpuscular Volume 86.9 fL (80-98); Mean Platelet Volume 12.6 fL (9.4-12.4); Monocytes Absolute Auto 0.3 X10*3/uL (0.1-1.2); Monocytes Percent Auto 4.3 % (2-11); Neutrophils Absolute Auto 5.2 X10*3/uL (2.0-8.3); Platelet Count 212 X10*3/uL (160-400); Red Blood Count 3.88 X10*6/uL (4.60-5.80); White Blood Count 6.7 X10*3/uL (4.8-10.8)
[2020-05-19 10:06] LABS: Anion Gap 14 (12-20); Blood Urea Nitrogen 8 mg/dL (9-16); Carbon Dioxide 24 mmol/L (22-29); Chloride 106 mmol/L (96-108); Creatinine Clr Calc Pharmacy 128.8; Estimated Glomerular Filt Rate > 60; Glucose Random 141 mg/dL (60-115); Potassium 4.2 mmol/l (3.3-5.1); Sodium 140 mmol/L (135-145)
[2020-05-19] MEDS: LORazepam 2 MG/ML VIAL 1 MG IVPUSH ×3 (10:11→20:18)
[2020-05-19 10:25] LABS: Calcium 8.5 mg/dL (8.4-10.2)
--- NOTE | 2020-05-19 11:00 | MHC.CARE ---
Recovery Support note: Patient is a 35 year old [place] speaking male who presented to [facility] due to an abscess. This clinical writer met with patient to discuss his substance use and recovery supports. Patient was difficult to engage, however reports he is interested in starting Suboxone while in the hospital and continuing with it after discharge. Explained to patient that he would need to go without narcotics for a period of time before we can get him started on Suboxone. Patient acknowledged and reports that he does not feel like he can go without the pain medication today, however he is interested in trying tomorrow. Explained to patient that we can hold off on his pain medication to see if the pain is tolerable, and if it is we can start him on Suboxone tomorrow. Patient agreeable to plan. Discussed case with patient's RN and Hospitalist. If patient is started on Suboxone, patient will need appointment at the [facility] in the near future and a prescription for Suboxone to bridge him from discharge until the appointment. This clinical writer will follow up with patient tomorrow morning.
[2020-05-19 11:43] VITALS: BP 119/61; PULSE 46; RESP 19; TEMP 36.6; O2SAT 100
--- NOTE | 2020-05-19 12:16 | MHC.CM.PN ---
PER PHYSICIAN ROUNDS, PLAN IS FOR ID CONSULT FOR DRAIN. PATIENT IS CURRENTLY AGREEABLE TO A PROCEDURE. PER REVIEW OF ID NOTE, PLAN IS FOR PO ABX UPON DC
[2020-05-19] MEDS: cefTRIAXone sodium 1 GM in 0.9 % Sodium Chloride 50 ML IV (14:29)
--- NOTE | 2020-05-19 15:19 | HO.PM.IMPN ---
Subjective Subjective Date of Service: 05/19/20 Interval History: Patient seen and examined at bedside patient still reporting knee pain and was shaking Constitutional Constitutional: Denies chills and Denies fever(s) Cardiovascular Cardiovascular: Denies chest pain Respiratory Respiratory: Denies cough Gastrointestinal Gastrointestinal: Denies abdominal pain Physical Exam Vital Signs: Vital Signs: Last Vital Signs Temp 97.9 F 05/19/20 11:43 Pulse 46 L 05/19/20 11:43 Resp 19 05/19/20 11:43 BP 119/61 05/19/20 11:43 Pulse Ox 100 05/19/20 11:43 Body Mass Index 23.6 Const: General: alert, awake and poor hygiene Nutritional Appearance: well nourished Orientation/consciousness: patient oriented x3 HENMT: Head: Yes normocephalic and Yes atraumatic Eyes: Sclerae: sclerae normal Resp: Effort & Inspection: normal respiratory effort and no respiratory distress Auscultation: clear to auscultation bilaterally Cardio: Rate: regular rate Rhythm: regular rhythm GI: Palpation (GI): Soft to palpation and nontender Neuro: General: patient oriented x3 Cranial nerves: Yes CN's II-XII intact bilaterally and Yes Bilaterally intact EOM present Objective Data Current Medications Generic Name Dose Route Start Last Admin Trade Name Freq PRN Reason Stop Dose Admin Acetaminophen 650 mg 05/16/20 14:12 05/18/20 06:15 Acetaminophen 325 Mg Tablet PO 650 mg Q6H PRN Administration Pain, Mild (Pain Scale 1-3) Docusate Sodium 100 mg 05/16/20 21:00 05/19/20 08:35 Docusate Sodium 100 Mg Capsule PO Not Given BID [facility] Enoxaparin Sodium 40 mg 05/16/20 15:00 05/18/20 15:24 Enoxaparin Sodium 40 Mg/0.4 Ml Syringe SUBCUT Not Given Q24H SETH Ceftriaxone Sodium 1 gm/ 50 mls @ 100 mls/hr 05/18/20 14:00 05/19/20 15:10 Sodium Chloride IV Infused Q24H [facility] Infusion Lorazepam 1 mg 05/19/20 10:03 05/19/20 14:22 Lorazepam 2 Mg/Ml Vial IVPUSH 1 mg Q4H PRN Administration anxiety/restlessness Morphine Sulfate 4 mg 05/16/20 14:20 05/19/20 12:27 Morphine Sulfate 4 Mg/Ml Cartridge IVPUSH 4 mg Q4H PRN Administration Pain, Severe (Pain Scale 7-10) Ondansetron HCl 4 mg 05/16/20 14:12 05/19/20 12:26 Ondansetron Hcl 4 Mg/2 Ml Vial IVPUSH 4 mg Q8H PRN Administration Nausea and Vomiting Oxycodone HCl 5 mg 05/16/20 11:58 05/19/20 06:28 Oxycodone Hcl Immed Release 5 Mg Tablet PO 5 mg Q6H PRN Administration Pain, Severe (Pain Scale 7-10) Pharmacy Consult 1 each 05/16/20 09:49 Consult Rx Perform Med Rec MISCELLANE ONCE PRN Consult order Pharmacy Consult 1 each 05/16/20 11:58 Consult Rx Vancomycin Dosing MISCELLANE DAILY PRN Consult order Sodium Chloride 3 ml 05/16/20 16:00 05/19/20 08:34 0.9 % Sodium Chloride Flush 3 Ml Syringe IVFLUSH 3 ml QSHIFT SETH Administration Labs CBC & Chem 7: 05/19/20 09:19 05/19/20 09:19 Microbiology Microbiology Results: Microbiology 05/16/20 09:29 Blood - Arterial Blood Culture - Preliminary 05/16/20 08:52 Blood - Arterial Blood Culture - Preliminary Streptococcus pyogenes (Grp A) Assessment and Plan (1) Normocytic anemia: Status: Acute (2) Thrombocytopenia: Status: Acute (3) Polysubstance abuse: Status: Inactive (4) Cellulitis: Status: Acute (5) Opiate addiction: Status: Acute (6) Cellulitis of knee, right: Status: Acute Assessment and Plan: 35-year-old homeless male with a history polysubstance abuse who presents to the emergency department with hardness, swelling and pain of his right knee found to have cellulitis Right lower extremity cellulitis In the setting of IVDU US negative for DVT received IV vancomycin, Zosyn blood culture growing strep and Gram-negative rods Infectious disease consulted antibiotic switched to IV Rocephin follow-up blood culture continue IV morphine as needed for pain general surgery following noted to have fluctuant swelling , patient refused I and D, surgery will retry Streptococcus pyogenes and gram-negative mesha bacteremia likely secondary to IV drug use and cellulitis continue IV Rocephin follow-up repeat cultures id following polysubstance abuse was on Suboxone in the past continue IV morphine for pain seen by psych recommended starting Suboxone once will wean down pain medication continue IV Ativan p.r.n. for withdrawal s/p right skin graft 04/20 has had no surgical follow-up general surgery input appreciated, no intervention needed at this point thrombocytopenia stable follow CBC normocytic anemia chronic follow cbc tobacco dependence smoking cessation advised NRT Mild hyponatremia resolving IV fluid Follow BMP refusing blood work today HCV Outpatient FU dvt ppx lovenox
[2020-05-19 15:22] VITALS: BP 142/78; PULSE 43; RESP 15; TEMP 37; O2SAT 98
[2020-05-19 20:00] VITALS: BP 146/84; PULSE 40; RESP 17; TEMP 37.4; O2SAT 97
[2020-05-19 23:19] VITALS: BP 129/65; PULSE 68; RESP 20; TEMP 36.4; O2SAT 98
[2020-05-20 03:44] VITALS: BP 121/79; PULSE 78; RESP 20; TEMP 36.8; O2SAT 96
[2020-05-20] MEDS: LORazepam 2 MG/ML VIAL 1 MG IVPUSH ×2 (03:49→08:50)
[2020-05-20 08:00] VITALS: BP 121/62; PULSE 45; RESP 19; TEMP 37.2; O2SAT 98
[2020-05-20] MEDS: 0.9 % Sodium Chloride Flush 3 ML SYRINGE IVFLUSH ×3 (08:52→20:06)
[2020-05-20 11:26] VITALS: BP 124/77; PULSE 45; RESP 17; TEMP 36.5; O2SAT 100
--- NOTE | 2020-05-20 12:28 | MHC.CM.PN ---
PER PHYSICIAN ROUNDS, NO PLAN FOR DISCHARGE. CURRENTLY AWAITING FINAL AND REPEAT CULTURES. LIKELY IV ABX FOR REMAINDER OF WEEK. CASE MANAGEMENT FOLLOWING FOR DC PLANS
[2020-05-20] MEDS: cefTRIAXone sodium 1 GM in 0.9 % Sodium Chloride 50 ML IV (14:09)
[2020-05-20] MEDS: LORazepam 1 MG TABLET PO ×2 (14:13→20:02)
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
--- NOTE | 2020-05-20 15:22 | HO.PM.IMPN ---
Subjective Subjective Date of Service: 05/20/20 Interval History: Patient seen and examined at bedside patient still reporting knee pain Constitutional Constitutional: Denies chills and Denies fever(s) Cardiovascular Cardiovascular: Denies chest pain Respiratory Respiratory: Denies cough Gastrointestinal Gastrointestinal: Denies abdominal pain Physical Exam Vital Signs: Vital Signs: Last Vital Signs Temp 97.7 F 05/20/20 11:26 Pulse 45 L 05/20/20 11:26 Resp 17 05/20/20 11:26 BP 124/77 05/20/20 11:26 Pulse Ox 100 05/20/20 11:26 Body Mass Index 23.6 Const: General: alert, awake and poor hygiene Nutritional Appearance: well nourished Orientation/consciousness: patient oriented x3 HENMT: Head: Yes normocephalic and Yes atraumatic Eyes: Sclerae: sclerae normal Resp: Effort & Inspection: normal respiratory effort and no respiratory distress Auscultation: clear to auscultation bilaterally Cardio: Rate: regular rate Rhythm: regular rhythm GI: Palpation (GI): Soft to palpation and nontender Neuro: General: patient oriented x3 Cranial nerves: Yes CN's II-XII intact bilaterally and Yes Bilaterally intact EOM present Objective Data Current Medications Generic Name Dose Route Start Last Admin Trade Name Freq PRN Reason Stop Dose Admin Acetaminophen 650 mg 05/16/20 14:12 05/18/20 06:15 Acetaminophen 325 Mg Tablet PO 650 mg Q6H PRN Administration Pain, Mild (Pain Scale 1-3) Docusate Sodium 100 mg 05/16/20 21:00 05/20/20 08:52 Docusate Sodium 100 Mg Capsule PO Not Given BID [facility] Enoxaparin Sodium 40 mg 05/16/20 15:00 05/20/20 14:14 Enoxaparin Sodium 40 Mg/0.4 Ml Syringe SUBCUT Not Given Q24H SETH Ceftriaxone Sodium 1 gm/ 50 mls @ 100 mls/hr 05/18/20 14:00 05/20/20 14:58 Sodium Chloride IV Infused Q24H [facility] Infusion Lorazepam 1 mg 05/20/20 13:56 05/20/20 14:13 Lorazepam 1 Mg Tablet PO 1 mg Q6H PRN Administration anxiety/restlessness Morphine Sulfate 4 mg 05/16/20 14:20 05/19/20 16:32 Morphine Sulfate 4 Mg/Ml Cartridge IVPUSH 4 mg Q4H PRN Administration Pain, Severe (Pain Scale 7-10) Ondansetron HCl 4 mg 05/16/20 14:12 05/19/20 12:26 Ondansetron Hcl 4 Mg/2 Ml Vial IVPUSH 4 mg Q8H PRN Administration Nausea and Vomiting Oxycodone HCl 5 mg 05/16/20 11:58 05/19/20 06:28 Oxycodone Hcl Immed Release 5 Mg Tablet PO 5 mg Q6H PRN Administration Pain, Severe (Pain Scale 7-10) Pharmacy Consult 1 each 05/16/20 09:49 Consult Rx Perform Med Rec MISCELLANE ONCE PRN Consult order Pharmacy Consult 1 each 05/16/20 11:58 Consult Rx Vancomycin Dosing MISCELLANE DAILY PRN Consult order Sodium Chloride 3 ml 05/16/20 16:00 05/20/20 14:14 0.9 % Sodium Chloride Flush 3 Ml Syringe IVFLUSH 3 ml QSHIFT SETH Administration Labs CBC & Chem 7: 05/19/20 09:19 05/19/20 09:19 Microbiology Microbiology Results: Microbiology 05/19/20 09:19 Blood - Venous Blood Culture - Preliminary No growth after 24 hours. 05/19/20 09:19 Blood - Venous Blood Culture - Preliminary No growth after 24 hours. 05/16/20 09:29 Blood - Arterial Blood Culture - Preliminary 05/16/20 08:52 Blood - Arterial Blood Culture - Preliminary Streptococcus pyogenes (Grp A) Assessment and Plan (1) Normocytic anemia: Status: Acute (2) Thrombocytopenia: Status: Acute (3) Polysubstance abuse: Status: Inactive (4) Cellulitis: Status: Acute (5) Opiate addiction: Status: Acute (6) Cellulitis of knee, right: Status: Acute Assessment and Plan: 35-year-old homeless male with a history polysubstance abuse who presents to the emergency department with hardness, swelling and pain of his right knee found to have cellulitis Right lower extremity cellulitis In the setting of IVDU US negative for DVT received IV vancomycin, Zosyn blood culture growing strep and Gram-negative rods Infectious disease consulted antibiotic switched to IV Rocephin continue IV Rocephin follow-up blood culture general surgery following abscess started draining spontaneously awaiting final culture and sensitivity Streptococcus pyogenes and gram-negative mesha bacteremia likely secondary to IV drug use and cellulitis continue IV Rocephin follow-up repeat cultures awaiting final culture and sensitivity id following polysubstance abuse was on Suboxone in the past on IV morphine stopped today Will get psych follow-up for starting Suboxone seen by psych recommended starting Suboxone once will wean down pain medication continue IV Ativan p.r.n. for withdrawal s/p right skin graft 04/20 has had no surgical follow-up general surgery input appreciated, no intervention needed at this point thrombocytopenia stable follow CBC normocytic anemia chronic follow cbc tobacco dependence smoking cessation advised NRT Mild hyponatremia resolving IV fluid Follow BMP refusing blood work today HCV Outpatient FU dvt ppx lovenox
[2020-05-20 15:41] VITALS: BP 122/38; PULSE 47; RESP 17; TEMP 36.9; O2SAT 100
[2020-05-20 20:00] VITALS: BP 115/66; PULSE 50; RESP 20; TEMP 36.9; O2SAT 99
[2020-05-20] MEDS: oxyCODONE HCl Immed Release 5 MG TABLET PO (20:05)
[2020-05-21] VITALS: RESP 16
[2020-05-21 03:12] VITALS: BP 122/78; PULSE 79; RESP 20; TEMP 36.7; O2SAT 96
[2020-05-21] MEDS: LORazepam 1 MG TABLET PO ×2 (03:14→09:03)
[2020-05-21] MEDS: oxyCODONE HCl Immed Release 5 MG TABLET PO (06:35)
[2020-05-21 06:48] LABS: MANUAL DIFF FLAG NO
[2020-05-21 06:53] LABS: Basophils Percent Auto 0.4 % (0-2); Eosinophils Absolute Auto 0.1 X10*3/uL (0.0-0.4); Eosinophils Percent Auto 1.1 % (0-4); Hematocrit 37.9 % (42-52); Hemoglobin 12.2 g/dl (14.0-18.0); Imm Gran Abs Auto 0.03 X10*3/uL (0.00-0.03); Imm Gran Pct Auto 0.4 % (0.0-0.4); Lymphocytes Absolute Auto 2.4 X10*3/uL (1.2-4.9); Lymphocytes Percent Auto 32.2 % (20-40); Mean Corpuscular HGB Conc 32.2 g/dl (31.0-36.0); Mean Corpuscular Hemoglobin 26.8 pg (27.0-33.0); Mean Corpuscular Volume 83.3 fL (80-98); Mean Platelet Volume 11.5 fL (9.4-12.4); Monocytes Absolute Auto 0.7 X10*3/uL (0.1-1.2); Monocytes Percent Auto 9.9 % (2-11); Neutrophils Absolute Auto 4.1 X10*3/uL (2.0-8.3); Platelet Count 310 X10*3/uL (160-400); Red Blood Count 4.55 X10*6/uL (4.60-5.80); Red Cell Distribution Width 14.1 % (11.0-16.0); White Blood Count 7.3 X10*3/uL (4.8-10.8)
[2020-05-21 07:18] LABS: Anion Gap 12 (12-20); Blood Urea Nitrogen 15 mg/dL (9-16); Calcium 8.6 mg/dL (8.4-10.2); Carbon Dioxide 28 mmol/L (22-29); Chloride 101 mmol/L (96-108); Estimated Glomerular Filt Rate > 60; Glucose Random 100 mg/dL (60-115); Potassium 4.6 mmol/l (3.3-5.1); Sodium 136 mmol/L (135-145)
[2020-05-21 07:34] VITALS: BP 128/71; PULSE 55; RESP 18; TEMP 37.1; O2SAT 97
[2020-05-21] MEDS: 0.9 % Sodium Chloride Flush 3 ML SYRINGE IVFLUSH (09:05)
[2020-05-21 12:00] VITALS: BP 133/81; PULSE 42; RESP 20; TEMP 37.1; O2SAT 97
--- NOTE | 2020-05-21 12:52 | P.PNIM_ITS ---
Subjective Subjective Date of Service: 05/21/20 Interval History: Patient seen and examined at bedside patient still reporting knee pain Constitutional Constitutional: Denies chills and Denies fever(s) Cardiovascular Cardiovascular: Denies chest pain Respiratory Respiratory: Denies cough Gastrointestinal Gastrointestinal: Denies abdominal pain, Denies diarrhea, Denies loose stools, Denies nausea and Denies vomiting Musculoskeletal Musculoskeletal: Reports myalgias Psychiatric Psychiatric: Reports anxiety Physical Exam Vital Signs: Vital Signs: Last Vital Signs Temp 98.7 F 05/21/20 12:00 Pulse 42 L 05/21/20 12:00 Resp 20 05/21/20 12:00 BP 133/81 05/21/20 12:00 Pulse Ox 97 05/21/20 12:00 Body Mass Index 23.6 Const: General: alert, awake and poor hygiene Nutritional Appearance: well nourished Orientation/consciousness: patient oriented x3 HENMT: Head: Yes normocephalic and Yes atraumatic Eyes: Sclerae: sclerae normal Resp: Effort & Inspection: normal respiratory effort and no respiratory distress Auscultation: clear to auscultation bilaterally Cardio: Rate: regular rate Rhythm: regular rhythm GI: Palpation (GI): Soft to palpation and nontender Neuro: General: patient oriented x3 Cranial nerves: Yes CN's II-XII intact bilaterally and Yes Bilaterally intact EOM present Objective Data Current Medications Generic Name Dose Route Start Last Admin Trade Name Freq PRN Reason Stop Dose Admin Acetaminophen 650 mg 05/16/20 14:12 05/18/20 06:15 Acetaminophen 325 Mg Tablet PO 650 mg Q6H PRN Administration Pain, Mild (Pain Scale 1-3) Docusate Sodium 100 mg 05/16/20 21:00 05/21/20 09:05 Docusate Sodium 100 Mg Capsule PO Not Given BID SETH Enoxaparin Sodium 40 mg 05/16/20 15:00 05/20/20 14:14 Enoxaparin Sodium 40 Mg/0.4 Ml Syringe SUBCUT Not Given Q24H SETH Ceftriaxone Sodium 1 gm/ 50 mls @ 100 mls/hr 05/18/20 14:00 05/20/20 14:58 Sodium Chloride IV Infused Q24H SETH Infusion Lorazepam 0.5 mg 05/21/20 10:15 Lorazepam 0.5 Mg Tablet PO Q8H PRN anxiety/restlessness Ondansetron HCl 4 mg 05/16/20 14:12 05/19/20 12:26 Ondansetron Hcl 4 Mg/2 Ml Vial IVPUSH 4 mg Q8H PRN Administration Nausea and Vomiting Pharmacy Consult 1 each 05/16/20 09:49 Consult Rx Perform Med Rec MISCELLANE ONCE PRN Consult order Pharmacy Consult 1 each 05/16/20 11:58 Consult Rx Vancomycin Dosing MISCELLANE DAILY PRN Consult order Sodium Chloride 3 ml 05/16/20 16:00 05/21/20 09:05 0.9 % Sodium Chloride Flush 3 Ml Syringe IVFLUSH 3 ml QSHIFT SETH Administration Labs CBC & Chem 7: 05/21/20 06:30 05/21/20 06:30 Microbiology Microbiology Results: Microbiology 05/16/20 09:29 Blood - Arterial Blood Culture - Preliminary 05/16/20 08:52 Blood - Arterial Blood Culture - Final Streptococcus pyogenes (Grp A) 05/19/20 09:19 Blood - Venous Blood Culture - Preliminary No growth after 48 hours. 05/19/20 09:19 Blood - Venous Blood Culture - Preliminary No growth after 48 hours. Assessment and Plan (1) Normocytic anemia: Status: Acute (2) Thrombocytopenia: Status: Acute (3) Polysubstance abuse: Status: Inactive (4) Cellulitis: Status: Acute (5) Opiate addiction: Status: Inactive (6) Cellulitis of knee, right: Status: Acute Assessment and Plan: 35-year-old homeless male with a history polysubstance abuse who presents to the emergency department with hardness, swelling and pain of his right knee foun d to have cellulitis, Right lower extremity cellulitis In the setting of IVDU US negative for DVT received IV vancomycin, Zosyn blood culture growing strep and Gram-negative rods Infectious disease consulted antibiotic switched to IV Rocephin continue IV Rocephin follow-up blood culture general surgery following abscess started draining spontaneously awaiting final culture and sensitivity Streptococcus pyogenes and gram-negative mesha bacteremia likely secondary to IV drug use and cellulitis continue IV Rocephin follow-up repeat cultures awaiting final culture and sensitivity id following polysubstance abuse was on Suboxone in the past i/v morphine stopped psych follow-up for starting Suboxone continue IV Ativan p.r.n. for withdrawal s/p right skin graft 04/20 has had no surgical follow-up general surgery input appreciated, no intervention needed at this point Thrombocytopenia stable follow CBC normocytic anemia chronic follow cbc tobacco dependence smoking cessation advised NRT Mild hyponatremia resolving HCV Outpatient FU dvt ppx lovenox
[2020-05-21] MEDS: cefTRIAXone sodium 1 GM in 0.9 % Sodium Chloride 50 ML IV (13:04)
--- NOTE | 2020-05-21 13:10 | MHC.CM.PN ---
NURSE HEALTH AND SAFETY COORDINATOR NOTE ELECTRONIC MEDICAL RECORD REVIEWED ALONG WITH MEETING WITH PATIENT AND DISCUSSED ON MULTIPLE DISCIPLINARY ROUNDS , PATIENT PER DOCUMENTATION PATIENT WAS SEEN BY PSYCHIATRIST ON 05/20/2020, RIGHT LOWER EXTREMITY CELLULITES S WITH HISTORY F IV DRUG ABUSE , WAS RECEIVING IV VANCOMYCIN AND ZOSYN ,PER DOCUMENTATION BLOOD CULTURES GROWING GRAM NEGATIVE RODS AND STREP .INFECTIOUS DISEASE PHYSICIAN FOLLOWING SWITCHED TO IV ROCEPHIN, PLAN TO CONTINUE TO ASSESS FOR PAIN , FOLLOW UP ON BLOOD CULTURES, GENERA SURGERY CONTINUES TO FOLLOW ABSCESS STARTED TO SPONTANEOUSLY DRAIN 05/19-08/08 DISCHARGE PLAN- TO BE FURTHER DETERMINED (SURGICAL AND ID PHYSICIAN FOLLOWING HIM)MAY NEED LNG TERM IV ABX, IF SO INIATED REFERRAL [facility]. 2. VS DISCHARGE TO LONG-TERM PATIENT IS HOMELESS 3, CARES TEAM RECOMMENDATIONS FOR COMMUNITY SUPPORTS AND RESOURCES 4. PSYCHIATRY RECOMMENDATIONS OF WHEN TO START SUBOXONE
--- NOTE | 2020-05-21 14:00 | MHC.CARE ---
Recovery Support note: This gag writer checked in with patient to discuss how patient is doing and if he is still interested in starting Suboxone. Patient was minimally engaged in discussion due to withdrawal. Patient reports feeling very sick. Patient is interested in additional Ativan. Patient reported no pain to this gag writer however documentation and RN report that patient has stated otherwise earlier today. Patient reports he is still interested in started Suboxone. Patient identifies his homelessness as a potential barrier to continuing MAT after treatment however he is still interested in starting it while in the hospital.
--- NOTE | 2020-05-21 14:32 | MHC.CM.PN ---
nurse primary care sales representative note i was notified by nursin staff that patient was walking ut then sighned ama paperwork (against medical advice)
--- NOTE | 2020-06-08 17:09 | P.DS_ITS ---
DS: Providers Provider Date of admission: 05/16/20 11:58 Primary care physician: No Physician Consults: 05/16/20 11:58 Consult to General Surgery Routine Consulting Provider: Wilber Hurst Reason for consultation: right wrist skin graft Has provider been notified: No Consult to Infectious Diseases Routine Consulting Provider: Kendal Alanis Reason for consultation: right knee cellulitis;ivdu Has provider been notified: No 05/16/20 13:51 Consult to Care Team Routine Comment: Reason for consultation: IV DRUG HX, M5 RECENT D/C NON COMPLIANT WITH PSYCH MEDS OR F/U 05/18/20 11:00 Consult to Psychiatry Routine Consulting Provider: [facility] Reason for consultation: i/v drug use for suboxone 05/18/20 13:51 Consult to Infectious Diseases Routine Consulting Provider: Kendal Alanis Reason for consultation: follow up on strep bactremia DS: Diagnosis Discharge Diagnosis (1) Normocytic anemia: Status: Acute (2) Thrombocytopenia: Status: Acute (3) Polysubstance abuse: Status: Inactive (4) Cellulitis: Status: Acute (5) Opiate addiction: Status: Inactive (6) Cellulitis of knee, right: Status: Acute DS: Medications Discharge Medications Home Medications: Previous Rx's Medication Instructions Recorded buprenorphine-naloxone [Suboxone] 1 film SUBLINGUAL DAILY #7 ea 04/22/20 hydroxyzine HCl 50 mg PO RQ4H PRN #30 tab 04/22/20 mirtazapine 30 mg PO BEDTIME #60 tab 04/22/20 oxycodone 5 mg PO Q4H PRN #6 tab 04/22/20 quetiapine 100 mg PO BID@0830,1330 #60 tab 04/22/20 quetiapine 300 mg PO BEDTIME #30 tab 04/22/20 trazodone 25 mg PO BEDTIME PRN #30 tab 04/22/20 DS: Summary Hospital Course Hospital Course: HPI 35-year-old homeless male with history of polysubstance abuse who presents to the emergency department with redness and swelling of his right knee. This began approximately 4 days ago. he denies injecting drugs into his lower extremities. He has had increasing pain and difficulty ambulating. He denies any associated fever or chills. His leg was found to be significantly red and swollen with open area on the right knee. He underwent a CT scan of the area which showed no evidence of septic joint or abscess. Right lower extremity ultrasound showed no evidence of DVT. lab work was significant for leukocytosis of 10.9 and thrombocytopenia with platelet count of 125. Sodium level 130. Lactic acid was within normal limits. he was treated with IV vancomycin and Zosyn. of note patient had recent admission earlier this month on M5 for depression with suicidal ideation. During that time he was evaluated by surgery for a right wrist wound that was not healing. He underwent skin graft on 04/20/2020. He was discharged from the hospital on 04/22/2020. He has not continued to take medications that were started on the psychiatric floor nor has he followed up with surgery. hospital course 35 y o m with h/o i/v drug use admitted with right knee cellulitis and abscess started on vanco and zosyn , culture were sent , blood culture came back positive for strep pyogenes , ID was consulted antibiotic were switched to i/v rocephin , general surgery was consulted intially patient refused iand D , but later abscess drained on its own , repeat blood culture were pending , patient refused tostay in hospital and refused further treatment , explained to patient risk of worsening infection , bactremia including but patient understand risk but still refused to stayand left AMA Time Spent with Patient Time attestation: Total time spent providing and/or coordinating discharge services: Physical Exam Vital Signs: Vital Signs: Last Vital Signs Temp 98.7 F 05/21/20 12:00 Pulse 42 L 05/21/20 12:00 Resp 20 05/21/20 12:00 BP 133/81 05/21/20 12:00 Pulse Ox 97 05/21/20 12:00 Body Mass Index 23.6 DS: Data Data Completed and Pending Completed studies during hospitalization [Text1]: Procedures Excision of Right Upper Leg Skin, External Approach (04/10/20) Replacement of Right Lower Arm Skin with Autologous Tissue Substitute, Partial Thickness, External Approach (04/10/20) Labs on day of discharge: 05/16/20 08:30 CT lower leg RT w con Stat US venous duplex LE RT Stat 05/16/20 08:32 0.9 % Sodium Chloride [Ns] 1,000 ml IVCONT 999 mls/hr 05/16/20 08:33 Morphine Sulfate 4 mg IVPUSH ONCE ONE oxyCODONE HCl Immed Release [Roxicodone] 5 mg PO ONCE ONE 05/16/20 08:52 Basic Metabolic Panel Stat Complete Blood Count Auto Diff Stat Lactic Acid Stat Liver Panel Stat Magnesium Stat Prothrombin Time INR Stat SLIDE REVIEW Stat 05/16/20 08:54 Piperacillin Sodium/Tazobactam [Zosyn] 3.375 gm 0.9 % Sodium Chloride [Ns] 50 ml IV ONCE 05/16/20 08:55 vancomycin HCL 1,000 mg 0.9 % Sodium Chloride [Ns] 250 ml IV ONCE 05/16/20 09:23 Piperacillin Sodium/Tazobactam [Zosyn] 3.375 gm IV .STK-MED ONE 05/16/20 09:29 Blood Culture X2 [BC] Stat 05/16/20 09:43 COVID-19 ID NOW ([facility]) Stat 05/16/20 09:49 Consult Rx Perform Med Rec 1 each MISCELLANE ONCE PRN 05/16/20 10:04 vancomycin HCL 1,000 mg .ROUTE .STK-MED ONE 05/16/20 10:32 iohexoL 350 MG/ML [Omnipaque 350 MG/ML] 85 ml IV ONCE ONE 05/16/20 11:45 Code Status Routine Transfer Order Routine 05/16/20 11:58 Consult Rx Vancomycin Dosing 1 each MISCELLANE DAILY PRN Nicotine [Nicoderm] 21 mg TRANSDERMA DAILY ONE oxyCODONE HCl Immed Release [Roxicodone] 5 mg PO Q6H PRN 05/16/20 14:12 Acetaminophen [Tylenol] 650 mg PO Q6H PRN Morphine Sulfate 2 mg IVPUSH Q4H PRN ondansetron HCL [Zofran] 4 mg IVPUSH Q8H PRN 05/16/20 14:12 Ambulate QSHIFT WHILE AWAKE IV insert/maintain Q4HR Intake and Output QSHIFTE Vital Signs QSHIFT 05/16/20 14:20 Morphine Sulfate 4 mg IVPUSH Q4H PRN 05/16/20 14:26 Piperacillin Sodium/Tazobactam [Zosyn] 3.375 gm IV .STK-MED ONE 05/16/20 15:00 0.9 % Sodium Chloride [Ns] 1,000 ml IVCONT 100 mls/hr Enoxaparin Sodium [Lovenox] 40 mg SUBCUT Q24H Piperacillin Sodium/Tazobactam [Zosyn] 3.375 gm 0.9 % Sodium Chloride [Ns] 50 ml IV Q6H 05/16/20 16:00 0.9 % Sodium Chloride Flush [NS Flush] 3 ml IVFLUSH QSHIFT 05/16/20 17:46 RT Smoking Initial Cessation ONCE 05/16/20 21:00 Docusate Sodium [Colace] 100 mg PO BID 05/16/20 22:00 vancomycin HCL 750 mg vancomycin HCL 500 mg 0.9 % Sodium Chloride [Ns] 250 ml IV Q12H 05/17/20 07:17 Basic Metabolic Panel DAILY@0600 Complete Blood Count Auto Diff DAILY@0600 05/17/20 21:19 Vancomycin Trough Stat 05/17/20 22:15 vancomycin HCL 1,000 mg 0.9 % Sodium Chloride [Ns] 250 ml IV Q12H 05/17/20 22:30 vancomycin HCL 1,500 mg 0.9 % Sodium Chloride [Ns] 250 ml IV Q12H 05/17/20 22:31 vancomycin HCL 1,000 mg .ROUTE .STK-MED ONE 05/17/20 22:37 vancomycin HCL 1,000 mg .ROUTE .STK-MED ONE 05/17/20 23:00 vancomycin HCL 1,000 mg 0.9 % Sodium Chloride [Ns] 250 ml IV Q8H 05/18/20 06:07 vancomycin HCL 1,000 mg .ROUTE .STK-MED ONE 05/18/20 14:00 cefTRIAXone sodium [Rocephin] 1 gm 0.9 % Sodium Chloride [Ns] 50 ml IV Q24H 05/18/20 14:13 cefTRIAXone sodium [Rocephin] 1 gm .ROUTE .STK-MED ONE 05/18/20 15:18 vancomycin HCL 1,000 mg .ROUTE .STK-MED ONE 05/18/20 21:12 Vancomycin Trough Routine 05/19/20 09:19 Basic Metabolic Panel Routine Complete Blood Count Auto Diff Routine Blood Culture X2 [BC] Routine 05/19/20 10:03 LORazepam [Ativan] 1 mg IVPUSH Q4H PRN 05/19/20 14:11 cefTRIAXone sodium [Rocephin] 1 gm .ROUTE .STK-MED ONE 05/20/20 13:56 LORazepam [Ativan] 1 mg PO Q6H PRN 05/20/20 13:59 cefTRIAXone sodium [Rocephin] 1 gm .ROUTE .STK-MED ONE 05/21/20 06:30 Basic Metabolic Panel Routine Complete Blood Count Auto Diff Routine 05/21/20 10:15 LORazepam [Ativan] 0.5 mg PO Q8H PRN 05/21/20 13:00 cefTRIAXone sodium [Rocephin] 1 gm .ROUTE .STK-[facility] ONE Laboratory Last Values WBC 7.3 X10*3/uL (4.8-10.8) 05/21/20 06:30 RBC 4.55 X10*6/uL (4.60-5.80) L 05/21/20 06:30 Hgb 12.2 g/dl (14.0-18.0) L 05/21/20 06:30 Hct 37.9 % (42-52) L 05/21/20 06:30 MCV 83.3 fL (80-98) 05/21/20 06:30 MCH 26.8 pg (27.0-33.0) L 05/21/20 06:30 MCHC 32.2 g/dl (31.0-36.0) 05/21/20 06:30 RDW 14.1 % (11.0-16.0) 05/21/20 06:30 Plt Count 310 X10*3/uL (160-400) D 05/21/20 06:30 MPV 11.5 fL (9.4-12.4) 05/21/20 06:30 Immature Gran % (Auto) 0.4 % (0.0-0.4) 05/21/20 06:30 Neut % (Auto) 56.0 % (45-73) 05/21/20 06:30 Lymph % (Auto) 32.2 % (20-40) 05/21/20 06:30 [place] % (Auto) 9.9 % (2-11) 05/21/20 06:30 Eos % (Auto) 1.1 % (0-4) 05/21/20 06:30 Baso % (Auto) 0.4 % (0-2) 05/21/20 06:30 Lymph # (Auto) 2.4 X10*3/uL (1.2-4.9) 05/21/20 06:30 [place] # (Auto) 0.7 X10*3/uL (0.1-1.2) 05/21/20 06:30 Eos # (Auto) 0.1 X10*3/uL (0.0-0.4) 05/21/20 06:30 Baso # (Auto) 0.0 X10*3/uL (0.0-0.2) 05/21/20 06:30 Abs Immat Gran (auto) 0.03 X10*3/uL (0.00-0.03) 05/21/20 06:30 Absolute Neuts (auto) 4.1 X10*3/uL (2.0-8.3) 05/21/20 06:30 Absolute Nucleated RBC 0.000 X10*3/uL (0.0-0.012) 05/21/20 06:30 Nucleated RBC % (auto) 0.0 /100WBC (0.0-0.2) 05/21/20 06:30 Smear Tech's Comments VERIFIED 05/16/20 08:52 PT 14.4 SEC (10.8-13.0) H 05/16/20 08:52 INR 1.2 (0.9-1.1) H 05/16/20 08:52 Sodium 136 mmol/L (135-145) 05/21/20 06:30 Potassium 4.6 mmol/l (3.3-5.1) 05/21/20 06:30 Chloride 101 mmol/L (96-108) 05/21/20 06:30 Carbon Dioxide 28 mmol/L (22-29) 05/21/20 06:30 Anion Gap 12 (-20) 05/21/20 06:30 BUN 15 mg/dL (9-16) D 05/21/20 06:30 Creatinine 0.92 mg/dL (0.5-1.4) 05/21/20 06:30 Estim Creat Clear Calc 112.0 05/21/20 06:30 Estimated GFR > 60 05/21/20 06:30 Random Glucose 100 mg/dL (60-115) 05/21/20 06:30 Lactic Acid 1.1 mmol/L (0.5-2.0) 05/16/20 08:52 Calcium 8.6 mg/dL (8.4-10.2) 05/21/20 06:30 Magnesium 1.8 mg/dL (1.6-2.6) 05/16/20 08:52 Total Bilirubin 0.5 mg/dL (0.0-1.0) 05/16/20 08:52 Direct Bilirubin 0.3 mg/dL (0.0-0.5) 05/16/20 08:52 AST 22 U/L (5-37) 05/16/20 08:52 ALT 204 U/L (0-40) H 05/16/20 08:52 Alkaline Phosphatase 128 U/L (39-117) H D 05/16/20 08:52 Total Protein 6.8 g/dL (6.5-8.0) 05/16/20 08:52 Albumin 3.6 g/dL (3.5-5.0) 05/16/20 08:52 Vancomycin Trough 5.3 mcg/mL (10.0-20.0) L 05/18/20 21:12 COVID-19 ([facility]) Negative (Negative) 05/16/20 09:43 COVID-19 Clin Com See Note 05/16/20 09:43 Discharge Plan Discharge Patient Disposition: Left Against Medical Advice Referrals: Physician,No [Primary Care Provider] - 1 Week (Please call your insurance company and choose a Primary Care Dr so you can follow up with.) Discharge Medications: No Action quetiapine 300 mg Tablet 300 mg PO BEDTIME Qty: 30 RF: 0 trazodone 50 mg Tablet 25 mg PO BEDTIME PRN (Reason: Insomnia) Qty: 30 RF: 0 quetiapine 100 mg Tablet 100 mg PO BID@0830,1330 Qty: 60 RF: 0 hydroxyzine HCl 25 mg Tablet 50 mg PO RQ4H PRN (Reason: Anxiety) Qty: 30 RF: 0 mirtazapine 15 mg Tablet 30 mg PO BEDTIME Qty: 60 RF: 0 oxycodone 5 mg Tablet 5 mg PO Q4H PRN (Reason: Pain, Severe (Pain Scale 7-10)) Qty: 6 RF: 0 buprenorphine-naloxone [Suboxone] 8-2 mg Film 1 film sublingual DAILY Qty: 7 RF: 0 Discharge Orders: Discharge Order (Routine); Ordered 05/21/20 Ordered By: Marcus Vallecillo Discharge Date/Time: 05/21/20 15:58 Care Plan Goals: see above Health Concerns: see above Plan of Treatment: see above
== END 2020-05-21 15:58 | disposition left against medical advice (07) | DRG 603 ==
LOC: HO.ED 11:05 → HO.S3 13:08
PROVIDERS: Internal Medicine; Physician Assistant Medical; Admitting Provider Student in an Organized Health Care Education/Training Program; Emergency Provider Internal Medicine; Visit Provider Internal Medicine
DX: L03.115 Cellulitis of right lower limb (principal); E87.1 Hypo-osmolality and hyponatremia; R78.81 Bacteremia; F17.210 Nicotine dependence, cigarettes, uncomplicated; D64.9 Anemia, unspecified; B95.0 Streptococcus, group A, as the cause of diseases classified elsewhere; Z71.6 Tobacco abuse counseling; F10.20 Alcohol dependence, uncomplicated; D69.6 Thrombocytopenia, unspecified; B19.20 Unspecified viral hepatitis C without hepatic coma; Z59.0 Homelessness; Z20.828 Contact with and (suspected) exposure to other viral communicable diseases
CPT/HCPCS: 36415; 73701; 80048; 80076; 80202; 83605; 83735; 85025; 85610; 87040; 87076; 87147; 87185; 87186; 87635; 93971; 96361; 96365; 96375; 99284; 99291; J0696; J2060; J2270; J2405; J2543; J3370; Q9967

== ENCOUNTER 2020-08-02 15:39 | Emergency (ER) | payer OTHER, SELFPAY ==
[2020-08-02 15:48] VITALS: BP 119/73; PULSE 76; RESP 16; TEMP 36.7; O2SAT 98
== END 2020-08-02 17:43 | disposition left against medical advice (07) ==
PROVIDERS: Emergency Provider Emergency Medicine
DX: L02.511 Cutaneous abscess of right hand (principal); M79.641 Pain in right hand
CPT/HCPCS: 99281; 99282

== ENCOUNTER 2020-09-02 17:58 | Emergency (ER) | payer OTHER, SELFPAY ==
[2020-09-02 18:17] VITALS: BP 127/71; PULSE 68; RESP 16; TEMP 36.5; O2SAT 97; BMI 22.1
--- NOTE | 2020-09-02 18:40 | PC.NURSE ---
pt on section 12 wants to leave security called because pt tried to leave
[2020-09-02 19:06] LABS: MANUAL DIFF FLAG NO
[2020-09-02 19:07] LABS: Basophils Absolute Auto 0.1 X10*3/uL (0.0-0.2); Basophils Percent Auto 0.9 % (0-2); Eosinophils Absolute Auto 0.2 X10*3/uL (0.0-0.4); Eosinophils Percent Auto 3.4 % (0-4); Hematocrit 37.5 % (42-52); Hemoglobin 11.6 g/dl (14.0-18.0); Imm Gran Abs Auto 0.01 X10*3/uL (0.00-0.03); Imm Gran Pct Auto 0.2 % (0.0-0.4); Lymphocytes Absolute Auto 1.9 X10*3/uL (1.2-4.9); Lymphocytes Percent Auto 28.5 % (20-40); Mean Corpuscular HGB Conc 30.9 g/dl (31.0-36.0); Mean Corpuscular Hemoglobin 26.5 pg (27.0-33.0); Mean Corpuscular Volume 85.6 fL (80-98); Mean Platelet Volume 10.5 fL (9.4-12.4); Monocytes Absolute Auto 0.4 X10*3/uL (0.1-1.2); Monocytes Percent Auto 5.4 % (2-11); Neutrophils Percent Auto 61.6 % (45-73); Platelet Count 212 X10*3/uL (160-400); Red Blood Count 4.38 X10*6/uL (4.60-5.80); Red Cell Distribution Width 15.3 % (11.0-16.0); White Blood Count 6.5 X10*3/uL (4.8-10.8)
--- NOTE | 2020-09-02 19:21 | PC.NURSE ---
PT STANDING IN HALLWAY LEANING ON COUNTER NODDING OFF, THIS RN ASKED PT TO MOVE BACK INTO BED, PT STATED HE WAS NOT FALLING ASLEEP. AFTER MUCH ENCOURAGEMENT FROM THIS RN AND SECURITY PT AGREEABLE TO SITTING IN BED ATT.
[2020-09-02 19:54] LABS: Ethanol 175 mg/dL
[2020-09-02 19:57] LABS: Alanine Aminotransferase 41 U/L (0-40); Albumin Level 4.3 g/dL (3.5-5.0); Alkaline Phosphatase 68 U/L (39-117); Anion Gap 11 (12-20); Aspartate Amino Transferase 26 U/L (5-37); Bilirubin Direct 0.2 mg/dL (0.0-0.5); Bilirubin Total 0.4 mg/dL (0.0-1.0); Blood Urea Nitrogen 18 mg/dL (9-16); Calcium 8.7 mg/dL (8.4-10.2); Carbon Dioxide 29 mmol/L (22-29); Chloride 102 mmol/L (96-108); Estimated Glomerular Filt Rate > 60; Glucose Random 98 mg/dL (60-115); Potassium 4.6 mmol/L (3.3-5.1); Sodium 137 mmol/L (135-145); Total Protein 7.5 g/dL (6.5-8.0)
--- NOTE | 2020-09-02 20:06 | MHC.RECOVSUP ---
? Reason for consult Support o Current location: ED22 o Identified substance use concern: Heroin - Support ? Intervention: o Community resources provided o Harm reduction discussion ? Plan: o Patient awaiting crisis evaluation o Patient to follow up with [facility] after discharge ? Additional information: Patient is at the ED on a section 12. Patient stated that when he done with evaluation that he would like to go to a detox and a program afterwards.
[2020-09-02 20:58] LABS: COVID-19 Test Negative (Negative); IDNOW Serial# 9DD0AD1C
--- NOTE | 2020-09-02 20:58 | PC.NURSE ---
Patient got transferred from main ED, ambulated without gait deficit, patient swabbed for covid/pending result, [facility] faxed/called/spoke with SHARHAM Godwin overnight, no distress reported, will continue to monitor.
[2020-09-02 21:14] VITALS: RESP 17
[2020-09-02 21:39] VITALS: BP 104/58; PULSE 82; RESP 17; TEMP 37.3; O2SAT 98
--- NOTE | 2020-09-02 21:51 | ED_ITS ---
HPI - Psych General Chief Complaint: Psychiatric Symptoms Stated Complaint: SI,DETOX,SECTION 12 Source: patient Mode of arrival: ambulatory Limitations: no limitations History of Present Illness HPI Narrative: Patient brought in by police as a Section 12 for SI statements and detox. Patient himself denies suicidal thoughts but police officers and behavior health network consulted states that patient did admit to being suicidal. He admits the patient was drinking. Patient denies falling or hitting head. Police officers denies patient having any trauma. MD complaint: suicidal ideation Related Data Previous Rx's Medication Instructions Recorded buprenorphine-naloxone [Suboxone] 1 film SUBLINGUAL DAILY #7 ea 04/22/20 hydroxyzine HCl 50 mg PO RQ4H PRN #30 tab 04/22/20 mirtazapine 30 mg PO BEDTIME #60 tab 04/22/20 oxycodone 5 mg PO Q4H PRN #6 tab 04/22/20 quetiapine 100 mg PO BID@0830,1330 #60 tab 04/22/20 quetiapine 300 mg PO BEDTIME #30 tab 04/22/20 trazodone 25 mg PO BEDTIME PRN #30 tab 04/22/20 Allergies Allergy/AdvReac Type Severity Reaction Status Date / Time No Known Allergies Allergy Verified 04/07/20 21:02 [No Known Allergies*] Review of Systems Review of Systems: Yes all other systems are reviewed and are negative Constitutional: Constitutional: Reports as per HPI and Reports no additional constitutional complaints Eyes: Eyes: Reports as per HPI and Reports no additional eye complaints ENT: Reports system reviewed and no additional complaints, except as documented and Reports as per HPI Cardiovascular: Cardiovascular: Reports as per HPI and Reports no additional cardiovascular complaints Respiratory: Respiratory: Reports as per HPI and Reports no additional respiratory complaints Gastrointestinal: Gastrointestinal: Reports as per HPI and Reports no additional gastrointestinal complaints Musculoskeletal: Musculoskeletal: Reports no additional musculoskeletal complaints and Reports as per HPI Neurologic: Reports system reviewed and no additional complaints, except as documented and Reports as per HPI Psychiatric: Psychiatric: Reports no additional psychiatric complaints and Reports as per HPI PMFSH Past Medical History Medical History (Updated 09/02/20 @ 21:56 by TRISTAN Ayala) HCV (hepatitis C virus) IVDU (intravenous drug user) Major depressive disorder, recurrent severe without psychotic features Normocytic anemia Opiate addiction Polysubstance abuse Surgical History (Updated 05/16/20 @ 15:54 by Wilber Hurst MD) History of incision and drainage S/P split thickness skin graft Family History Family History Sister Schizophrenia Social History Social History Household Members: None Housing: Homeless Alcohol intake: never Smoking Status: Current every day smoker Tobacco Type: Cigarette Packs Per Day: 1 Cigarettes Per Day: 20.0 Years Smoked: 15 Second Hand Smoke Exposure: Yes Use of substances other than those prescribed or required for medical reasons: Yes Substance Use Type: Heroin Substance Use Frequency: Chronic Longstanding Last Used Substance: Just Prior to Admission Advance Directives: No Advance Directives Information Provided: No service: No Sexual orientation: Straight/Heterosexual Physical Exam Vital Signs: Vital Signs: Last Vital Signs Temp 99.1 F 09/02/20 21:39 Pulse 82 09/02/20 21:39 Resp 17 09/02/20 21:39 BP 104/58 L 09/02/20 21:39 Pulse Ox 98 09/02/20 21:39 Body Mass Index 22.1 Const: General: cooperative, healthy appearing, comfortable, no acute distress, well developed, alert, awake and Physically active Orientation/consciousness: patient oriented x3 HENMT: Head: Yes normal to inspection, Yes No palpable skull fracture present, Yes normocephalic, Yes atraumatic, No abrasion, No Acrocyanosis present, No Taveras's sign, No contusion, No cranial bruits, No hematoma, No laceration, No occipital foramen tenderness, No palpable skull fracture, No raccoon eyes, No scalp lesion, No scalp tenderness, No Temporal artery tenderness present and No periorbital ecchymosis Eyes: General: appearance normal, both eyes and all related structures Neck: Neck: Yes normal visual inspection, Yes full ROM, Yes no lymp hadenopathy, Yes no meningeal signs, Yes trachea midline, Yes supple and No tender Chest: Chest palpation & inspection: normal inspection of the chest and normal palpation of entire chest wall Resp: Effort & Inspection: normal respiratory effort and able to speak in complete sentences Auscultation: clear to auscultation bilaterally Cardio: Jugular venous distension: no JVD Heart sounds: S1 normal heart sound present and S2 normal heart sound present GI: Inspection: Yes normal to inspection and No abdominal wall ecchymosis Palpation (GI): Soft to palpation, not firm, nontender, no guarding and not rigid : General: Yes CVA tenderness Back/Spine/Pelvis: Back: CVA tenderness Skin: General skin exam: no rashes or lesions noted and elasticity normal Neuro: General: patient oriented x3, no meningeal signs and CN's II-XI intact bilaterally Cranial nerves: Yes CN's II-XII intact bilaterally Extrem: Other: Right upper extremity positive for old abrasion/excoriation. All other extremities are normal. All extremity negative for tenderness or deformity Psych: Appearance: grossly normal, well kempt and not disheveled Course Course Course Narrative: Please officers and [facility] recommend patient to stay overnight for [facility] evaluation and possibility for them to go to court and place a Section 35 order Reevaluation(s) Reevaluation #1: Patient had labs drawn which showed alcohol level on the 175. Patient rest of labs are normal. COVID swab negative . Signed out to MELECIO Rueda Time: 21:55 MDM - Psych Lab Data Result diagrams: 09/02/20 19:02 09/02/20 19:02 Labs: Lab Results 09/02/20 09/02/20 09/02/20 Range/Units 19:02 19:02 19:02 WBC 6.5 (4.8-10.8) X10*3/uL RBC 4.38 L (4.60-5.80) X10*6/uL Hgb 11.6 L (14.0-18.0) g/dl Hct 37.5 L (42-52) % MCV 85.6 (80-98) fL MCH 26.5 L (27.0-33.0) pg MCHC 30.9 L (31.0-36.0) g/dl RDW 15.3 (11.0-16.0) % Plt Count 212 D (160-400) X10*3/uL MPV 10.5 (9.4-12.4) fL Immature Gran % (Auto) 0.2 (0.0-0.4) % Neut % (Auto) 61.6 (45-73) % Lymph % (Auto) 28.5 (20-40) % [place] % (Auto) 5.4 (2-11) % Eos % (Auto) 3.4 (0-4) % Baso % (Auto) 0.9 (0-2) % Lymph # (Auto) 1.9 (1.2-4.9) X10*3/uL [place] # (Auto) 0.4 (0.1-1.2) X10*3/uL Eos # (Auto) 0.2 (0.0-0.4) X10*3/uL Baso # (Auto) 0.1 (0.0-0.2) X10*3/uL Abs Immat Gran (auto) 0.01 (0.00-0.03) X10*3/uL Absolute Neuts (auto) 4.0 (2.0-8.3) X10*3/uL Absolute Nucleated RBC 0.000 (0.0-0.012) X10*3/uL Nucleated RBC % (auto) 0.0 (0.0-0.2) /100WBC Sodium 137 (135-145) mmol/L Potassium 4.6 (3.3-5.1) mmol/L Chloride 102 (96-108) mmol/L Carbon Dioxide 29 (22-29) mmol/L Anion Gap 11 L (12-20) BUN 18 H (9-16) mg/dL Creatinine 0.91 (0.5-1.4) mg/dL Estim Creat Clear Calc 109.0 Estimated GFR > 60 Random Glucose 98 (60-115) mg/dL Calcium 8.7 (8.4-10.2) mg/dL Total Bilirubin 0.4 (0.0-1.0) mg/dL Direct Bilirubin 0.2 (0.0-0.5) mg/dL AST 26 (5-37) U/L ALT 41 H (0-40) U/L Alkaline Phosphatase 68 D (39-117) U/L Total Protein 7.5 (6.5-8.0) g/dL Albumin 4.3 (3.5-5.0) g/dL Ethyl Alcohol 175 mg/dL COVID-19 ([facility]) (Negative) COVID-19 Clin Com 09/02/20 Range/Units 20:38 WBC (4.8-10.8) X10*3/uL RBC (4.60-5.80) X10*6/uL Hgb (14.0-18.0) g/dl Hct (42-52) % MCV (80-98) fL MCH (27.0-33.0) pg MCHC (31.0-36.0) g/dl RDW (11.0-16.0) % Plt Count (160-400) X10*3/uL MPV (9.4-12.4) fL Immature Gran % (Auto) (0.0-0.4) % Neut % (Auto) (45-73) % Lymph % (Auto) (20-40) % [place] % (Auto) (2-11) % Eos % (Auto) (0-4) % Baso % (Auto) (0-2) % Lymph # (Auto) (1.2-4.9) X10*3/uL [place] # (Auto) (0.1-1.2) X10*3/uL Eos # (Auto) (0.0-0.4) X10*3/uL Baso # (Auto) (0.0-0.2) X10*3/uL Abs Immat Gran (auto) (0.00-0.03) X10*3/uL Absolute Neuts (auto) (2.0-8.3) X10*3/uL Absolute Nucleated RBC (0.0-0.012) X10*3/uL Nucleated RBC % (auto) (0.0-0.2) /100WBC Sodium (135-145) mmol/L Potassium (3.3-5.1) mmol/L Chloride (96-108) mmol/L Carbon Dioxide (22-29) mmol/L Anion Gap (12-20) BUN (9-16) mg/dL Creatinine (0.5-1.4) mg/dL Estim Creat Clear Calc Estimated GFR Random Glucose (60-115) mg/dL Calcium (8.4-10.2) mg/dL Total Bilirubin (0.0-1.0) mg/dL Direct Bilirubin (0.0-0.5) mg/dL AST (5-37) U/L ALT (0-40) U/L Alkaline Phosphatase (39-117) U/L Total Protein (6.5-8.0) g/dL Albumin (3.5-5.0) g/dL Ethyl Alcohol mg/dL COVID-19 ([facility]) Negative (Negative) COVID-19 Clin Com See Note Discharge Plan Discharge Clinical Impression: Active substance abuse Prescriptions: No Action quetiapine 300 mg Tablet 300 mg PO BEDTIME Qty: 30 RF: 0 trazodone 50 mg Tablet 25 mg PO BEDTIME PRN (Reason: Insomnia) Qty: 30 RF: 0 quetiapine 100 mg Tablet 100 mg PO BID@0830,1330 Qty: 60 RF: 0 hydroxyzine HCl 25 mg Tablet 50 mg PO RQ4H PRN (Reason: Anxiety) Qty: 30 RF: 0 mirtazapine 15 mg Tablet 30 mg PO BEDTIME Qty: 60 RF: 0 oxycodone 5 mg Tablet 5 mg PO Q4H PRN (Reason: Pain, Severe (Pain Scale 7-10)) Qty: 6 RF: 0 buprenorphine-naloxone [Suboxone] 8-2 mg Film 1 film sublingual DAILY Qty: 7 RF: 0
[2020-09-03] VITALS (9 sets, daily range): BP systolic 102–126; BP diastolic 50–62; PULSE 60–62; RESP 16–20; TEMP 36.6–36.9; O2SAT 97–100
--- NOTE | 2020-09-03 03:37 | PC.NURSE ---
TORITON updated patient's disposition, section 12 inpatient bed search.
--- NOTE | 2020-09-03 07:35 | PC.NURSE ---
Report received from VIRIDIANA Maria. Pt resting, resp unlabored.
[2020-09-03] MEDS: Buprenorphine/Naloxone 4/1 mg FILM 1 FILM SUBLINGUAL ×2 (11:05→12:00)
--- NOTE | 2020-09-03 11:11 | PC.NURSE ---
Pt awake, CIWA complete, K June aware. Pt medicated as ordered.
--- NOTE | 2020-09-03 11:56 | PC.NURSE ---
Pt reporting that Suboxone was helpful, COWS repeated and reported to Nikkie Watkins.
[2020-09-03] MEDS: LORazepam 1 MG TABLET 2 MG PO ×3 (14:41→20:11)
--- NOTE | 2020-09-03 16:07 | PC.NURSE ---
Pt encouraged to give urine- continues to state that he is unable to void. CIWA reported to provider but pt is not forthcoming when assessed.
--- NOTE | 2020-09-03 16:39 | PC.NURSE ---
Report given to Louise at [facility]. . Unit unable to accept patient until utox is obtained. Pt reminded several times throughout the day but has not yet been able to provide sample. Pt is aware that he has been accepted pending utox. [facility] clinician: Sonam Perez [phone].
[2020-09-03 17:15] LABS: Glucose Urine UA NEG (NEG); Leukocyte Esterase Urine NEG (NEG); Nitrite Urine NEG (NEG); Urine Blood NEG (NEG); Urine Ketones NEG (NEG); Urine Protein NEG (NEG-TRACE)
[2020-09-03 17:16] LABS: Appearance Urine TURBID; Color Urine YELLOW
--- NOTE | 2020-09-03 17:19 | PC.NURSE ---
Pt able to provide urine sample. Pt increasingly drinking fluids.
[2020-09-03 17:38] LABS: Amphetamine Screen Urine Not Detected (Not Detect); Barbiturates, Urine Not Detected (Not Detect); Benzodiazepines Screen Urine Not Detected (Not Detect); Cannabinoid Screen Urine Not Detected (Not Detect); Cocaine Screen Urine POSITIVE (Not Detect); Opiate Screen Urine POSITIVE (Not Detect); Phencyclidine Screen Urine Not Detected (Not Detect)
--- NOTE | 2020-09-03 19:05 | PC.NURSE ---
Labs faxed to [facility] as requested. VIRIDIANA Gil updated re: care given. Pt unkempt, but declined to shower. Pt w/ abrasion left forearm which he declined to have cleaned and dressed. Unclear how injury was incurred. Wound clear, no erythema, no drainage noted..
== END 2020-09-03 20:13 ==
PROVIDERS: Physician Assistant; Emergency Provider Emergency Medicine
DX: F33.1 Major depressive disorder, recurrent, moderate (principal); R45.851 Suicidal ideations; F11.10 Opioid abuse, uncomplicated; F17.210 Nicotine dependence, cigarettes, uncomplicated; Z71.6 Tobacco abuse counseling; Z20.822 Contact with and (suspected) exposure to COVID-19; Z79.899 Other long term (current) drug therapy; Z71.51 Drug abuse counseling and surveillance of drug abuser
CPT/HCPCS: 36415; 80053; 80076; 80307; 80320; 81003; 85025; 87635; 99285

== ENCOUNTER 2020-09-17 09:30 | Emergency (ER) | payer OTHER, SELFPAY ==
[2020-09-17 09:36] VITALS: BP 144/84; O2SAT 97
--- NOTE | 2020-09-17 09:44 | ED.PSYCH ---
HPI - Psych General Stated Complaint: HEROIN USE Time Seen by Provider: 09/17/20 09:42 Source: patient and EMS Mode of arrival: EMS Limitations: other (Poor historian) History of Present Illness HPI Narrative: 35-year-old male with a past medical history of substance dependent of IV drugs currently homeless staying at [facility] with friends presenting to the ED via EMS after his friends he was staying with salt he overdosed therefore they called EMS. He did not receive any Narcan from his friends or from EMS. He denies any SI/HI/auditory visual hallucinations or thoughts of self injury. Reports he is not interested in detox and is requesting to leave at this time. complaint: substance abuse Onset (ago): minute(s) Duration: constant History of same: Yes Relieving factors: none Exacerbating factors: drug use Context: recent drug abuse Associated psychiatric symptoms: none Associated symptoms: denies other symptoms Treatments prior to arrival: none Related Data Previous Rx's Medication Instructions Recorded buprenorphine-naloxone [Suboxone] 1 film SUBLINGUAL DAILY #7 ea 04/22/20 hydroxyzine HCl 50 mg PO RQ4H PRN #30 tab 04/22/20 mirtazapine 30 mg PO BEDTIME #60 tab 04/22/20 oxycodone 5 mg PO Q4H PRN #6 tab 04/22/20 quetiapine 100 mg PO BID@0830,1330 #60 tab 04/22/20 quetiapine 300 mg PO BEDTIME #30 tab 04/22/20 trazodone 25 mg PO BEDTIME PRN #30 tab 04/22/20 Allergies Allergy/AdvReac Type Severity Reaction Status Date / Time No Known Allergies Allergy Verified 04/07/20 21:02 [No Known Allergies*] Review of Systems Review of Systems: Constitutional : No Fever, No Chills ENT/Mouth : No Ear Pain, No Nasal Congestion, No sore throat Eyes: No Eye Pain, No Swelling, No Redness Cardiovascular : No Chest Pain, No SOB Respiratory : No Cough, No Sputum, No Dyspnea Gastrointestinal : No ingestions, No Nausea, No Vomiting, No Diarrhea, No Hematochezia, No Melena Genitourinary : No Dysuria, No Urinary Frequency, No Hematuria Musculoskeletal : No Myalgias Skin : No Skin Lesions, No rash Neuro : No Weakness, No Numbness, No Paresthesias, No Dizziness, No Headache Psych : No Anxiety, No Depression, No SI, No thoughts of self injury, No HI, No AVH, Heme/Lymph: No Lymphadenopathy Endocrine : No Polyuria, No Polydipsia Yes all other systems are reviewed and are negative [facility] Past Medical History Attestation statement: The following information was validated with the patient. Medical History HCV (hepatitis C virus) IVDU (intravenous drug user) Major depressive disorder, recurrent severe without psychotic features Normocytic anemia Opiate addiction Polysubstance abuse Surgical History History of incision and drainage S/P split thickness skin graft Family History Family History Sister Schizophrenia Social History Social History Household Members: None Housing: Homeless Alcohol intake: never Smoking Status: Current every day smoker Tobacco Type: Cigarette Packs Per Day: 1 Cigarettes Per Day: 20.0 Years Smoked: 15 Second Hand Smoke Exposure: Yes Substance Use Type: Heroin service: No Sexual orientation: Straight/Heterosexual Physical Exam Vital Signs: Vital Signs: vital signs have been reviewed as normal and appeared to be correct. Blood pressure normal. Heart rate normal. Respiration rate normal. Temperature normal. Oxygen saturation normal. Appearance: Alert. Oriented X3. No acute distress. Head: Normal external exam. Normocephalic. Atraumatic. No Taveras signs noted. No raccoon eyes noted Eyes: PERRLA. EOMI. Conjunctiva and sclera normal. Eyelids normal. ENT: EAC normal. TM's Normal. Pharynx normal. Uvula midline. Moist mucous membranes. No trismus noted. No drooling noted. No muffled voice noted. Neck: Normal inspection. Neck supple. FROM. No adenopathy. Thyroid Normal. No meningeal signs. No neck mass noted. CVS: Normal heart rate and rhythm. Heart sound normal. No murmurs noted. Pulses normal throughout. Respiratory: No respiratory distress. Painless inspiration. Breath sounds normal. No wheezes/rales/rhonchi noted. Chest nontender. No accessory muscle usage noted or decreased air movement noted. Abdomen: Soft and nontender. Bowel sounds normal in all 4 quadrants. No distention noted. No organomegaly noted. No visible injury noted. Back: No CVA tenderness. Full range of motion noted. Skin: Skin warm and dry. Normal skin color. Normal skin turgor. No rashes/lesions/lacerations noted. Extremities: No lower extremity edema. Extremities exhibit normal range of motion. Extremities nontender. Neuro: Oriented X 3. No motor deficit. No sensory deficit. Reflexes normal. Psych: Appearance grossly normal, unkept, mental status normal, speech and movement normal, speech clear. Is cooperative. Course Course Course Narrative: 35-year-old male with a past medical history of IV drug use presenting to the ED via EMS for possible overdose on IV drugs although patient denies this. He did not receive any Narcan. Reports he is currently homeless staying at [place] [id number]. Is not interested in detox. Denies any SI/HI/auditory visual hallucinations thoughts of self-injury. Requesting to leave against medical advice at this time. Patient is clinically sober and alert and oriented x3 not in any acute distress therefore able to make his own medical decisions although explained to the patient that we should do a workup and possibly have him be evaluated for detox although patient is not interested in detox. Therefore will DC at this time against medical advice and instructions to return if any new or worsening symptoms and to follow up with primary care provider. Patient understands agrees with this plan. [facility] - Psych Medical Records Attestation: I reviewed the patient's medical records. Discharge Plan Discharge Clinical Impression: Active substance abuse Patient Disposition: Left Against Medical Advice Instructions: Polysubstance Abuse (ED) Additional Instructions: Follow-up with your primary care provider. Return if any new or worsening symptoms. Return if you would like detox. Return if you start having any thoughts of suicidal ideation/homicidal ideation/auditory visual sedation or thoughts of self injury. Prescriptions: No Action quetiapine 300 mg Tablet 300 mg PO BEDTIME Qty: 30 RF: 0 trazodone 50 mg Tablet 25 mg PO BEDTIME PRN (Reason: Insomnia) Qty: 30 RF: 0 quetiapine 100 mg Tablet 100 mg PO BID@0830,1330 Qty: 60 RF: 0 hydroxyzine HCl 25 mg Tablet 50 mg PO RQ4H PRN (Reason: Anxiety) Qty: 30 RF: 0 mirtazapine 15 mg Tablet 30 mg PO BEDTIME Qty: 60 RF: 0 oxycodone 5 mg Tablet 5 mg PO Q4H PRN (Reason: Pain, Severe (Pain Scale 7-10)) Qty: 6 RF: 0 buprenorphine-naloxone [Suboxone] 8-2 mg Film 1 film sublingual DAILY Qty: 7 RF: 0 Print Language: Gibraltarian
[2020-09-17 09:46] VITALS: BP 0/0; PULSE 0; RESP 0; TEMP -17.7; TEMP 0; O2SAT 0; BMI 22.1
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
== END 2020-09-17 09:55 | disposition left against medical advice (07) ==
LOC: HO.ED 09:50
PROVIDERS: Emergency Provider Emergency Medicine Emergency Medical Services
DX: F11.20 Opioid dependence, uncomplicated (principal); F19.10 Other psychoactive substance abuse, uncomplicated; Z59.0 Homelessness
CPT/HCPCS: 99283

== ENCOUNTER 2020-09-26 17:50 | Emergency (ER) | payer OTHER, SELFPAY ==
[2020-09-26 18:24] VITALS: BP 115/55; PULSE 88; RESP 20; O2SAT 90; BMI 27.3
--- NOTE | 2020-09-26 18:59 | ED.OVERDOSE ---
HPI - Overdose General Chief Complaint: Overdose Stated Complaint: SUBSTANCE ABUSE,-NARCAN Time Seen by Provider: 09/26/20 18:21 Source: EMS Mode of arrival: EMS Limitations: no limitations History of Present Illness HPI Narrative: Per EMS bystander called for drowsy appearing individual admits to using heroin. No Narcan given. MD complaint: intentional overdose Treatments Prior to Arrival: none Related Data Previous Rx's Medication Instructions Recorded buprenorphine-naloxone [Suboxone] 1 film SUBLINGUAL DAILY #7 ea 04/22/20 hydroxyzine HCl 50 mg PO RQ4H PRN #30 tab 04/22/20 mirtazapine 30 mg PO BEDTIME #60 tab 04/22/20 oxycodone 5 mg PO Q4H PRN #6 tab 04/22/20 quetiapine 100 mg PO BID@0830,1330 #60 tab 04/22/20 quetiapine 300 mg PO BEDTIME #30 tab 04/22/20 trazodone 25 mg PO BEDTIME PRN #30 tab 04/22/20 Allergies Allergy/AdvReac Type Severity Reaction Status Date / Time No Known Allergies Allergy Verified 04/07/20 21:02 [No Known Allergies*] Review of Systems Review of Systems: Constitutional: No Weight loss, No Fever, No Chills, No Night Sweats, No Fatigue, No Malaise ENT/Mouth: No Hearing loss, No Ear Pain, No Nasal Congestion, No Sinus Pain, No Hoarseness, No sore throat, No Rhinorrhea, No Swallowing Difficulty Eyes: No Eye Pain, No Swelling, No Redness, No Foreign Body, No Discharge, No Vision Changes Cardiovascular: No Chest Pain, No SOB, No Dyspnea on Exertion, No Orthopnea, No Edema, No Palpitations Respiratory: No Cough, No Sputum, No Wheezing, No Smoke Exposure, No Dyspnea Gastrointestinal: No Nausea, No Vomiting, No Diarrhea, No Constipation, No abdominal Pain, No Hematochezia, No Melena Genitourinary: No Dysuria, No Urinary Frequency, No Hematuria, No Urinary Incontinence, No Urgency, No Flank Pain, No Urinary Flow Changes, No Hesitancy Musculoskeletal: No joint pain, No Myalgias, No Joint Swelling Skin: No Skin Lesions, No rash Neuro: No Weakness, No Numbness, No Paresthesias, No Loss of Consciousness, No Dizziness, No Headache Psych: No Social Issues Heme/Lymph: No Bruising, No Bleeding,No Lymphadenopathy Endocrine: No Polyuria, No Polydipsia, No Temperature Intolerance Yes all other systems are reviewed and are negative COUNT INCLUDES [facility] Past Medical History Medical History HCV (hepatitis C virus) IVDU (intravenous drug user) Major depressive disorder, recurrent severe without psychotic features [place] (myocardial infarction) Normocytic anemia Opiate addiction Polysubstance abuse Surgical History History of incision and drainage S/P split thickness skin graft Family History Family History Sister Schizophrenia Social History Social History Household Members: None Housing: Homeless Alcohol intake: unknown Smoking Status: Current every day smoker Tobacco Type: Cigarette Packs Per Day: 1 Cigarettes Per Day: 20.0 Years Smoked: 15 Second Hand Smoke Exposure: Yes Use of substances other than those prescribed or required for medical reasons: Yes Substance Use Type: Crack/Cocaine and Heroin Last Used Substance: Hours (ago) Advance Directives: No Advance Directives Information Provided: Yes service: No Sexual orientation: Straight/Heterosexual Physical Exam Vital Signs: Vital Signs: Last Vital Signs Pulse 88 09/26/20 18:24 Resp 20 09/26/20 18:24 BP 115/55 L 09/26/20 18:24 Pulse Ox 90 L 09/26/20 18:24 Body Mass Index 27.3 Reviewed Repeat pulse of 98% on room air Const: General: cooperative and healthy appearing; No acute distress or intoxicated appearing Nutritional Appearance: average body habitus Orientation/consciousness: patient oriented x3 HENMT: Head: Yes normal to inspection Ears: hearing grossly normal bilaterally Eyes: General: appearance normal, both eyes and all related structures Visual Sinclair: normal visual sinclair by confrontation Neck: Neck: Yes normal visual inspection, No positive Brudzinski's sign, No positive Kernig's sign and No tender Thyroid: Thyroid normal Chest: Chest palpation & inspection: normal inspection of the chest Resp: Effort & Inspection: normal respiratory effort Auscultation: clear to auscultation bilaterally Cardio: Jugular venous distension: no JVD Rhythm: regular rhythm Heart sounds: S1 normal heart sound present and S2 normal heart sound present GI: Inspection: Yes normal to inspection Percussion: Yes normal to percussion Auscultation: normal bowel sounds : General: Yes no CVA tenderness Back/Spine/Pelvis: Back: no CVA tenderness Skin: General skin exam: no rashes or lesions noted Neuro: General: patient oriented x3 Extrem: General: Yes normal to inspection Course Course Course Narrative: Decline any detox services does not want to be here. Clinically sober. Denies any SI or HI. Requesting to be discharged. Discharge Plan Discharge Clinical Impression: Drug overdose Patient Disposition: Home, Self-Care Prescriptions: No Action quetiapine 300 mg Tablet 300 mg PO BEDTIME Qty: 30 RF: 0 trazodone 50 mg Tablet 25 mg PO BEDTIME PRN (Reason: Insomnia) Qty: 30 RF: 0 quetiapine 100 mg Tablet 100 mg PO BID@0830,1330 Qty: 60 RF: 0 hydroxyzine HCl 25 mg Tablet 50 mg PO RQ4H PRN (Reason: Anxiety) Qty: 30 RF: 0 mirtazapine 15 mg Tablet 30 mg PO BEDTIME Qty: 60 RF: 0 oxycodone 5 mg Tablet 5 mg PO Q4H PRN (Reason: Pain, Severe (Pain Scale 7-10)) Qty: 6 RF: 0 buprenorphine-naloxone [Suboxone] 8-2 mg Film 1 film sublingual DAILY Qty: 7 RF: 0 Referrals: Physician,Unknown [Primary Care Provider] - 2 days
--- NOTE | 2020-09-26 19:17 | PC.NURSE ---
PT WAS DROPPING MILK AND CRACKERS REFUSING TO SIT DOWN. PT NOT WEARING HIS MASK AND SWEARING AND PACING IN HALLWAY DISTRUBING OTHER PTS. PT TOLD SEVERAL TIMES TO SIT DOWN AND PT GOT UPSET YOU ARE YELLING AT ME . [facility] NURSE AWARE AND AT BEDSIDE REDIRECTING PT. SECURITY CALLED. PT WALKED WITH SECURITY TO [facility] TO GET BELONGINGS. PT WITH STEADY BERNARD GAIT TO [facility].
== END 2020-09-26 19:29 | disposition home or self-care (01) ==
PROVIDERS: Emergency Provider Internal Medicine
DX: T40.1X1A Poisoning by heroin, accidental (unintentional), initial encounter (principal); R40.0 Somnolence; F11.10 Opioid abuse, uncomplicated; Y92.9 Unspecified place or not applicable; F17.210 Nicotine dependence, cigarettes, uncomplicated
CPT/HCPCS: 99284

== ENCOUNTER 2020-09-26 22:01 | Emergency (ER) | payer OTHER, SELFPAY ==
[2020-09-26 22:14] VITALS: BP 136/61; PULSE 96; RESP 14; O2SAT 97
[2020-09-26 22:31] VITALS: BP 136/61; PULSE 96; RESP 14; O2SAT 97; BMI 23.6
--- NOTE | 2020-09-26 22:33 | PC.NURSE ---
dressing applied to R forearm for superficial scrapes.
--- NOTE | 2020-09-26 23:28 | ED_ITS ---
HPI - General Adult General Chief complaint: General Medical Stated complaint: OVERDOSE,-NARCAN Time Seen by Provider: 09/26/20 22:11 Source: patient and EMS Mode of arrival: EMS Limitations: no limitations History of Present Illness HPI narrative: 35-year-old male with opioid use disorder presents a 2nd times evening for abnormal behavior, suspected overdose with out requiring Narcan. Patient was just discharged from this facility approximately an hour ago, was picked up by EMS because he was rolling around on the ground in a parking lot. Patient is alert oriented x4, answering questions abruptly and rudely, and requesting to leave. Onset (ago): hour(s) (Within the hour of arrival) Severity: mild Treatments prior to arrival: none Related Data Previous Rx's Medication Instructions Recorded buprenorphine-naloxone [Suboxone] 1 film SUBLINGUAL DAILY #7 ea 04/22/20 hydroxyzine HCl 50 mg PO RQ4H PRN #30 tab 04/22/20 mirtazapine 30 mg PO BEDTIME #60 tab 04/22/20 oxycodone 5 mg PO Q4H PRN #6 tab 04/22/20 quetiapine 100 mg PO BID@0830,1330 #60 tab 04/22/20 quetiapine 300 mg PO BEDTIME #30 tab 04/22/20 trazodone 25 mg PO BEDTIME PRN #30 tab 04/22/20 Allergies Allergy/AdvReac Type Severity Reaction Status Date / Time No Known Allergies Allergy Verified 04/07/20 21:02 [No Known Allergies*] Review of Systems Review of Systems: Constitutional: No Fever, No Chills ENT/Mouth: No sore throat, No Rhinorrhea Eyes: No Eye Pain, No Swelling, No Redness Cardiovascular: No Chest Pain, No SOB Respiratory: No Cough, No Sputum Gastrointestinal: No Nausea, No Vomiting, No Diarrhea, No abdominal Pain Genitourinary: No Dysuria, No Hematuria Musculoskeletal: No joint pain, No Myalgias, No Joint Swelling Skin: No Skin Lesions, No rash Neuro: No Weakness, No Numbness, No Loss of Consciousness, No Dizziness, No Headache Psych: No Anxiety, No Depression, No SI/HI/AH/VH Heme/Lymph: No Bruising, No Bleeding,No Lymphadenopathy Endocrine: No Polyuria, No Polydipsia PMFSH Past Medical History Attestation statement: The following information was validated with the patient. Medical History HCV (hepatitis C virus) IVDU (intravenous drug user) Major depressive disorder, recurrent severe without psychotic features [place] (myocardial infarction) Normocytic anemia Opiate addiction Polysubstance abuse Surgical History History of incision and drainage S/P split thickness skin graft Family History Family History Sister Schizophrenia Social History Social History Household Members: None Housing: Homeless Alcohol intake: unknown Smoking Status: Current every day smoker Tobacco Type: Cigarette Packs Per Day: 1 Cigarettes Per Day: 20.0 Years Smoked: 15 Second Hand Smoke Exposure: Yes Substance Use Type: Crack/Cocaine and Heroin Advance Directives: No Advance Directives Information Provided: Yes service: No Sexual orientation: Straight/Heterosexual Physical Exam Vital Signs: Vital Signs: Last Vital Signs Pulse 96 09/26/20 22:31 Resp 14 09/26/20 22:31 BP 136/61 09/26/20 22:31 Pulse Ox 97 09/26/20 22:31 Body Mass Index 23.6 Appearance: Alert. Oriented X3. No acute distress. Eyes: Pupils equal, round and reactive to light. ENT: Pharynx normal. Neck: Normal inspection. Neck supple. CVS: Normal heart rate and rhythm. Pulses normal. Respiratory: No respiratory distress. Breath sounds normal. Abdomen: Soft and nontender. Skin: Skin warm and dry. Normal skin color. Normal skin turgor. Extremities: No lower extremity edema. Neuro: No motor deficit. No sensory deficit. Course Course Course Narrative: Patient presents to the emergency department via EMS after being found rolling around on the ground in a parking lot. Patient was just discharged from this facility for suspected overdose without the use of Narcan, this is 2nd presentation in less than 2 hours for similar concerns. Patient did not require Narcan, is awake, alert oriented x4, answering questions abruptly and abrasively, open-mouth coughing on staff, refusing to wear his mask, and demanding to leave. Vital signs are stable and within normal limits, O2 sat 97% on room air, gait well balanced well coordinated. Plan of care is discharged home. He declines speaking to the assistant women's rowing coach or detox. Medical Decision Making MDM Narrative Medical decision making narrative: Substance abuse Medical Records Medical records reviewed: Yes I reviewed the patient's medical records. Discharge Plan Discharge Clinical Impression: Substance abuse Patient Disposition: Home, Self-Care Instructions: Polysubstance Abuse (ED) Additional Instructions: Please consider detox. Thank you for choosing this emergency department for evaluation. Please follow-up with primary care physician as needed. Return to the emergency department for any new, concerning, or worsening symptoms. Prescriptions: No Action quetiapine 300 mg Tablet 300 mg PO BEDTIME Qty: 30 RF: 0 trazodone 50 mg Tablet 25 mg PO BEDTIME PRN (Reason: Insomnia) Qty: 30 RF: 0 quetiapine 100 mg Tablet 100 mg PO BID@0830,1330 Qty: 60 RF: 0 hydroxyzine HCl 25 mg Tablet 50 mg PO RQ4H PRN (Reason: Anxiety) Qty: 30 RF: 0 mirtazapine 15 mg Tablet 30 mg PO BEDTIME Qty: 60 RF: 0 oxycodone 5 mg Tablet 5 mg PO Q4H PRN (Reason: Pain, Severe (Pain Scale 7-10)) Qty: 6 RF: 0 buprenorphine-naloxone [Suboxone] 8-2 mg Film 1 film sublingual DAILY Qty: 7 RF: 0 Interventions: ED Discharge Assessment Last Done: 09/26/20 22:34 Discharge Date/Time: 09/26/20 22:35
== END 2020-09-26 22:35 | disposition home or self-care (01) ==
PROVIDERS: Emergency Provider Internal Medicine
DX: F11.10 Opioid abuse, uncomplicated (principal); F17.210 Nicotine dependence, cigarettes, uncomplicated
CPT/HCPCS: 99283

== ENCOUNTER 2020-10-03 17:27 | Emergency (ER) | payer OTHER, SELFPAY ==
[2020-10-03 17:29] VITALS: BP 138/75; PULSE 86; RESP 16; TEMP 36.8; O2SAT 96; BMI 24.1
--- NOTE | 2020-10-03 17:47 | PC.NURSE ---
PT WAS TRIAGED AND LEFT [facility] PER BRODIE RN. PT NOT IN ROOM FOR EVAL. LWT.
--- NOTE | 2020-10-15 00:49 | ED_ITS ---
HPI - Dental/Oral General Chief complaint: Dental/Oral Stated complaint: dental pain Time Seen by Provider: 10/03/20 17:40 Source: patient Mode of arrival: ambulatory Limitations: no limitations History of Present Illness HPI Narrative: Patient has carried right upper 2nd molar with broken tooth supposed to see an oral surgeon for tooth extraction comes here for increased pain unable see a dentist Complaint: tooth pain Location: Tooth # Teeth map: 1. Broken 2nd molar no gum swelling Related Data Previous Rx's Medication Instructions Recorded buprenorphine-naloxone [Suboxone] 1 film SUBLINGUAL DAILY #7 ea 04/22/20 hydroxyzine HCl 50 mg PO RQ4H PRN #30 tab 04/22/20 mirtazapine 30 mg PO BEDTIME #60 tab 04/22/20 oxycodone 5 mg PO Q4H PRN #6 tab 04/22/20 quetiapine 100 mg PO BID@0830,1330 #60 tab 04/22/20 quetiapine 300 mg PO BEDTIME #30 tab 04/22/20 trazodone 25 mg PO BEDTIME PRN #30 tab 04/22/20 Allergies Allergy/AdvReac Type Severity Reaction Status Date / Time No Known Allergies Allergy Verified 04/07/20 21:02 [No Known Allergies*] Review of Systems Review of Systems: Yes all other systems are reviewed and are negative PMFSH Past Medical History Medical History HCV (hepatitis C virus) IVDU (intravenous drug user) Major depressive disorder, recurrent severe without psychotic features [place] (myocardial infarction) Normocytic anemia Opiate addiction Polysubstance abuse Surgical History History of incision and drainage S/P split thickness skin graft Family History Family History Sister Schizophrenia Social History Social History Household Members: None Housing: Homeless Alcohol intake: unknown Smoking Status: Current every day smoker Tobacco Type: Cigarette Packs Per Day: 1 Cigarettes Per Day: 20.0 Years Smoked: 15 Second Hand Smoke Exposure: Yes Substance Use Type: Crack/Cocaine and Heroin Advance Directives: No Advance Directives Information Provided: Yes service: No Sexual orientation: Straight/Heterosexual Physical Exam Vital Signs: Vital Signs: Last Vital Signs Temp 98.3 F 10/03/20 17:29 Pulse 86 10/03/20 17:29 Resp 16 10/03/20 17:29 BP 138/75 10/03/20 17:29 Pulse Ox 96 10/03/20 17:29 Body Mass Index 24.1 Const: General: no acute distress Orientation/consciousness: patient oriented x3 HENMT: Teeth and gingiva: caries Teeth image: 1. Broken with cavity Neck: Neck: Yes normal visual inspection, Yes full ROM and Yes no lymphadenop athy Resp: Effort & Inspection: normal respiratory effort Cardio: Rate: regular rate Rhythm: regular rhythm Neuro: General: patient oriented x3 Discharge Plan Discharge Patient Disposition: Left Without Being Seen Interventions: LWBS Worksheet Last Done: 10/03/20 18:05 Discharge Date/Time: 10/03/20 18:23
== END 2020-10-03 18:23 | disposition left against medical advice (07) ==
LOC: HO.ED 18:07
PROVIDERS: Emergency Provider Internal Medicine
DX: K02.9 Dental caries, unspecified (principal)
CPT/HCPCS: 99282

== ENCOUNTER 2020-11-19 15:57 | Emergency (ER) | payer OTHER, SELFPAY ==
[2020-11-19 17:39] VITALS: BP 119/69; PULSE 65; RESP 18; TEMP 37.1; O2SAT 100; BMI 23.6
--- NOTE | 2020-11-19 19:01 | PC.NURSE ---
CALLED TO [facility]. PT NOT IN [facility].
== END 2020-11-19 19:39 | disposition left against medical advice (07) ==
PROVIDERS: Emergency Provider Emergency Medicine
DX: M79.642 Pain in left hand (principal); Z04.9 Encounter for examination and observation for unspecified reason
CPT/HCPCS: 99282

== ENCOUNTER 2021-05-21 20:23 | Emergency (ER) | payer OTHER, SELFPAY ==
[2021-05-21 20:29] VITALS: BP 131/76; PULSE 95; RESP 14; TEMP 36.4; O2SAT 95; BMI 35.8
[2021-05-21 20:40] VITALS: RESP 16
--- NOTE | 2021-05-21 20:52 | ED_ITS ---
HPI - Overdose General Chief Complaint: Overdose Stated Complaint: Overdose Time Seen by Provider: 05/21/21 21:02 Source: patient Mode of arrival: ambulatory Limitations: no limitations History of Present Illness HPI Narrative: Patient with history of substance abuse was in intermediate for last 7 months came out today used 1 bag of IV heroin and cocaine and had 6 fireball drinks patient was unresponsive with shallow breathing received 6 mg of nasal Narcan by EMS with good response asking for help to go to detox no fall no head injury Related Data Previous Rx's Medication Instructions Recorded buprenorphine 8 mg-naloxone 2 mg 1 film SUBLINGUAL DAILY #7 ea 04/22/20 sublingual film (Suboxone) hydroxyzine HCl 25 mg tablet 50 mg PO RQ4H PRN #30 tab 04/22/20 mirtazapine 15 mg tablet 30 mg PO BEDTIME #60 tab 04/22/20 oxycodone 5 mg tablet 5 mg PO Q4H PRN #6 tab 04/22/20 quetiapine 100 mg tablet 100 mg PO BID@0830,1330 #60 tab 04/22/20 quetiapine 300 mg tablet 300 mg PO BEDTIME #30 tab 04/22/20 trazodone 50 mg tablet 25 mg PO BEDTIME PRN #30 tab 04/22/20 Allergies Allergy/AdvReac Type Severity Reaction Status Date / Time No Known Allergies Allergy Verified 11/19/20 17:38 [No Known Allergies*] Review of Systems Review of Systems: Yes all other systems are reviewed and are negative PMFSH Past Medical History Medical History HCV (hepatitis C virus) IVDU (intravenous drug user) Major depressive disorder, recurrent severe without psychotic features [place] (myocardial infarction) Normocytic anemia Opiate addiction Polysubstance abuse Surgical History History of incision and drainage S/P split thickness skin graft Family History Family History Sister Schizophrenia Social History Social History Household Members: None Housing: Homeless Do you presently have visiting nurse or other home services: No Alcohol intake: current Alcohol intake frequency: holidays/special occasions only Patient Tobacco Use Status: Tobacco use Unknown Cigarette Packs Per Day: 1 Cigarettes Per Day: 20.0 Years Smoked: 15 Second Hand Smoke Exposure: Yes Use of substances other than those prescribed or required for medical reasons: Yes Substance Use Type: Crack/Cocaine, Heroin and IV Drugs Advance Directives: No Advance Directives Information Provided: Yes service: No Sexual orientation: Straight/Heterosexual Physical Exam Vital Signs: Vital Signs: Last Vital Signs Temp 97.6 F 05/21/21 20:29 Pulse 87 05/21/21 22:44 Resp 16 05/22/21 00:49 BP 131/76 05/21/21 20:29 Pulse Ox 95 05/21/21 20:29 BMI result Body Mass Index 35.8 Appearance: Alert. Oriented X3. No acute distress. Eyes: PERRLA, No Nystagmus HEENT: Pharynx normal. Oral Mucosa moist, atraumatic normocephalic Neck: Normal inspection. Neck supple. CVS: Normal heart rate and rhythm. Pulses normal. Respiratory: No respiratory distress. Equal air entry bilateral, no wheezing/rales/rhonchi Abdomen: Soft and nontender. Bowel sounds are present, no mass palpable, no CVA tenderness Skin: Skin warm and dry. Normal skin color. Normal skin turgor. Extremities: No lower extremity edema. No calf tenderness IVDA track coyle+ Neuro: Oriented X 3. No motor deficit. MDM - Overdose MDM Narrative Medical decision making narrative: Patient substance abuse would like to detox seen by care team plan to place him detox in the morning at this time patient is sober relaxed asymptomatic, saturating 98% on room air Discharge Plan Discharge Clinical Impression: Polysubstance abuse Prescriptions: No Action quetiapine 300 mg Tablet 300 mg PO BEDTIME Qty: 30 RF: 0 trazodone 50 mg Tablet 25 mg PO BEDTIME PRN (Reason: Insomnia) Qty: 30 RF: 0 quetiapine 100 mg Tablet 100 mg PO BID@0830,1330 Qty: 60 RF: 0 hydroxyzine HCl 25 mg Tablet 50 mg PO RQ4H PRN (Reason: Anxiety) Qty: 30 RF: 0 mirtazapine 15 mg Tablet 30 mg PO BEDTIME Qty: 60 RF: 0 oxycodone 5 mg Tablet 5 mg PO Q4H PRN (Reason: Pain, Severe (Pain Scale 7-10)) Qty: 6 RF: 0 buprenorphine-naloxone [Suboxone] 8-2 mg Film 1 film sublingual DAILY Qty: 7 RF: 0
--- NOTE | 2021-05-21 21:17 | HO.SUDE ---
CARE Team met with pt to offer SUDE and substance use treatment resources. Pt said that he has been using cocaine and heroin since he was 18 years old. He said wants to take advantage of whatever resources are available to him and he has access to narcan. CARE Team provided pt with detox/MAT/[facility] [place] information and asked if he was interested in speaking with a strength and conditioning coach. Pt indicated that he is interest in speaking with a strength and conditioning coach.
--- NOTE | 2021-05-21 21:30 | MHC.RECOVSUP ---
? Reason for consult: Overdose o ? ? ?Current location: ?ED04 o ? ? ?Identified substance use concern: Heroine - Overdose - Seeking (detox) - Support ? ?Intervention: o Community resources provided o Harm reduction discussion ? Plan: o Bed search in progress to local detox ? Additional information:?I was able to meet with patient and review harm reduction strategies, detox and access to community support.
[2021-05-21] MEDS: Ibuprofen 600 MG TABLET PO (22:41)
[2021-05-21 22:44] VITALS: PULSE 87; RESP 15
[2021-05-22 00:49] VITALS: RESP 16
[2021-05-22 01:13] LABS: COVID-19 Test Negative (Negative)
[2021-05-22 03:07] VITALS: PULSE 73; RESP 14
[2021-05-22 06:02] VITALS: BP 116/70; PULSE 69; RESP 14; O2SAT 96
--- NOTE | 2021-05-22 08:36 | MHC.RECOVSUP ---
Recovery Support note: Patient is a 36 year old Jamaican speaking male who presented to [facility] [place] ED on 05/21 after an accidental overdose. Patient expressed interest in going to detox and met with a college football coach. No detox beds were available on 05/21. Patient remained in the ED overnight and the bedsearch was resumed on 05/22. This editorial writer met with patient to discuss substance use and treatment options. Patient reports using several bag daily and continues to express interest in going to detox. This editorial writer will refer patient to detox facilities.
--- NOTE | 2021-05-22 09:04 | PC.NURSE ---
patient transferred to pod, seemingly ambivalent about treatment plan due to breakfast choices.
--- NOTE | 2021-05-22 09:52 | MHC.RECOVSUP ---
Recovery Support note: Patient informed staff that he is no longer interested in going to detox. This global technical writer met with patient to discuss substance use treatment options. Patient declines all services and interventions at this time. Information and education on local ATS facilities provided.
== END 2021-05-22 10:54 | disposition home or self-care (01) ==
PROVIDERS: Emergency Provider Internal Medicine
DX: F19.10 Other psychoactive substance abuse, uncomplicated (principal); Z20.822 Contact with and (suspected) exposure to COVID-19
CPT/HCPCS: 36415; 87635; 99285

== ENCOUNTER 2021-05-22 14:12 | Emergency (ER) | payer OTHER, SELFPAY ==
[2021-05-22 14:23] VITALS: BP 163/84; PULSE 119; RESP 22; TEMP 37.9; O2SAT 98
[2021-05-22 14:32] VITALS: BP 128/70; PULSE 118; O2SAT 99
[2021-05-22 14:40] VITALS: BMI 39.1
--- NOTE | 2021-05-22 14:46 | PC.NURSE ---
Patient alert and oriented, speaking full sentences, gait steady. patient denies SI. angry, stating he was going to walk out. No section to keep patient from leaving. MD did see patient briefly. went back to talk to patient and he had eloped.
--- NOTE | 2021-05-22 14:53 | ED.GENADULT ---
HPI - General Adult General Chief complaint: General Medical Stated complaint: HEROIN USE, NO NARCAN GIVEN Time Seen by Provider: 05/22/21 14:44 Source: patient Mode of arrival: EMS Limitations: no limitations History of Present Illness HPI narrative: hx of substance abuse brought here for possible OD ,no narcan used,arrive awake and alert requesting discharge,refused detox,no SI Onset (ago): hour(s) (1) Severity: moderate Relieving factors: none Exacerbating factors: none Related Data Previous Rx's Medication Instructions Recorded buprenorphine 8 mg-naloxone 2 mg 1 film SUBLINGUAL DAILY #7 ea 04/22/20 sublingual film (Suboxone) hydroxyzine HCl 25 mg tablet 50 mg PO RQ4H PRN #30 tab 04/22/20 mirtazapine 15 mg tablet 30 mg PO BEDTIME #60 tab 04/22/20 oxycodone 5 mg tablet 5 mg PO Q4H PRN #6 tab 04/22/20 quetiapine 100 mg tablet 100 mg PO BID@0830,1330 #60 tab 04/22/20 quetiapine 300 mg tablet 300 mg PO BEDTIME #30 tab 04/22/20 trazodone 50 mg tablet 25 mg PO BEDTIME PRN #30 tab 04/22/20 Allergies Allergy/AdvReac Type Severity Reaction Status Date / Time No Known Allergies Allergy Verified 11/19/20 17:38 [No Known Allergies*] Review of Systems Constitutional: Constitutional: Reports no additional constitutional complaints Cardiovascular: Cardiovascular: Reports no additional cardiovascular complaints and Denies dyspnea on exertion Respiratory: Respiratory: Reports no additional respiratory complaints, Denies chest congestion, Denies cough, Denies dyspnea on exertion and Denies wheezing Gastrointestinal: Gastrointestinal: Reports no additional gastrointestinal complaints Neurologic: Reports system reviewed and no additional complaints, except as documented Allergic/Immunologic: Allergic/Immunologic: Denies wheezing PMFSH Past Medical History Medical History HCV (hepatitis C virus) IVDU (intravenous drug user) Major depressive disorder, recurrent severe without psychotic features [place] (myocardial infarction) Normocytic anemia Opiate addiction Polysubstance abuse Surgical History History of incision and drainage S/P split thickness skin graft Family History Family History Sister Schizophrenia Social History Social History Household Members: None Housing: Homeless Do you presently have visiting nurse or other home services: No Alcohol intake: current Alcohol intake frequency: holidays/special occasions only Patient Tobacco Use Status: Tobacco use Unknown Cigarette Packs Per Day: 1 Cigarettes Per Day: 20.0 Years Smoked: 15 Second Hand Smoke Exposure: Yes Substance Use Type: Crack/Cocaine, Heroin and IV Drugs Advance Directives: No Advance Directives Information Provided: Yes service: No Sexual orientation: Straight/Heterosexual Physical Exam Vital Signs: Vital Signs: Last Vital Signs Temp 100.2 F 05/22/21 14:23 Pulse 119 H 05/22/21 14:23 Resp 22 H 05/22/21 14:23 BP 163/84 H 05/22/21 14:23 Pulse Ox 98 05/22/21 14:23 BMI result Body Mass Index 39.1 Const: General: comfortable and no acute distress Nutritional Appearance: average body habitus HENMT: Other: Examination the head eyes ears nose and throat is within normal limits Neck: Neck: Yes normal visual inspection, Yes full ROM and Yes no lymphadenopathy Chest: Chest palpation & inspection: normal inspection of the chest Resp: Effort & Inspection: normal respiratory effort Auscultation: clear to auscultation bilaterally Cardio: Jugular venous distension: no JVD Rate: regular rate GI: Inspection: Yes normal to inspection Neuro: Other: He is awake alert oriented x3 he has a stable gait, he has decision-making capacity, Course Reevaluation(s) Reevaluation #1: Patient eloped he was steady on his feet, he refuses detox, she was not SI or HI Discharge Plan Discharge Clinical Impression: Drug abuse Patient Disposition: Elopement Prescriptions: No Action quetiapine 300 mg Tablet 300 mg PO BEDTIME Qty: 30 RF: 0 trazodone 50 mg Tablet 25 mg PO BEDTIME PRN (Reason: Insomnia) Qty: 30 RF: 0 quetiapine 100 mg Tablet 100 mg PO BID@0830,1330 Qty: 60 RF: 0 hydroxyzine HCl 25 mg Tablet 50 mg PO RQ4H PRN (Reason: Anxiety) Qty: 30 RF: 0 mirtazapine 15 mg Tablet 30 mg PO BEDTIME Qty: 60 RF: 0 oxycodone 5 mg Tablet 5 mg PO Q4H PRN (Reason: Pain, Severe (Pain Scale 7-10)) Qty: 6 RF: 0 buprenorphine-naloxone [Suboxone] 8-2 mg Film 1 film sublingual DAILY Qty: 7 RF: 0 Interventions: ED Discharge Assessment Last Done: 05/22/21 14:49 Discharge Date/Time: 05/22/21 15:02
== END 2021-05-22 15:02 | disposition left against medical advice (07) ==
LOC: HO.ED 14:53
PROVIDERS: Emergency Provider Emergency Medicine
DX: F19.10 Other psychoactive substance abuse, uncomplicated (principal); F11.20 Opioid dependence, uncomplicated; F17.200 Nicotine dependence, unspecified, uncomplicated
CPT/HCPCS: 99283

== ENCOUNTER 2021-05-22 23:04 | Inpatient (IN) | payer OTHER, SELFPAY ==
--- NOTE | 2021-05-22 23:26 | ED.GENADULT ---
HPI - General Adult General Chief complaint: General Medical Stated complaint: drug used Time Seen by Provider: 05/22/21 23:22 Source: EMS Mode of arrival: EMS Limitations: altered mental status History of Present Illness HPI narrative: Patient is brought to the emergency room after being found confused, pacing and walking into traffic in [address] . Police department was called, EMS was called next and patient was brought to the emergency room. Patient is confused, seems very anxious, pacing. When asked why he is here, patient states you tell me and I am so confused . Of note, patient was seen earlier today for a possible overdose. Patient refused detox, patient requested to be discharged. Related Data Previous Rx's Medication Instructions Recorded buprenorphine 8 mg-naloxone 2 mg 1 film SUBLINGUAL DAILY #7 ea 04/22/20 sublingual film (Suboxone) hydroxyzine HCl 25 mg tablet 50 mg PO RQ4H PRN #30 tab 04/22/20 mirtazapine 15 mg tablet 30 mg PO BEDTIME #60 tab 04/22/20 oxycodone 5 mg tablet 5 mg PO Q4H PRN #6 tab 04/22/20 quetiapine 100 mg tablet 100 mg PO BID@0830,1330 #60 tab 04/22/20 quetiapine 300 mg tablet 300 mg PO BEDTIME #30 tab 04/22/20 trazodone 50 mg tablet 25 mg PO BEDTIME PRN #30 tab 04/22/20 Allergies Allergy/AdvReac Type Severity Reaction Status Date / Time No Known Allergies Allergy Verified 11/19/20 17:38 [No Known Allergies*] Review of Systems Review of Systems: Yes Unobtainable due to mental condition PMFSH Past Medical History Medical History HCV (hepatitis C virus) IVDU (intravenous drug user) Major depressive disorder, recurrent severe without psychotic features [place] (myocardial infarction) Normocytic anemia Opiate addiction Polysubstance abuse Surgical History History of incision and drainage S/P split thickness skin graft Family History Family History Sister Schizophrenia Social History Social History Household Members: None Housing: Homeless Do you presently have visiting nurse or other home services: No Alcohol intake: current Alcohol intake frequency: holidays/special occasions only Patient Tobacco Use Status: Tobacco use Unknown Cigarette Packs Per Day: 1 Cigarettes Per Day: 20.0 Years Smoked: 15 Second Hand Smoke Exposure: Yes Substance Use Type: Crack/Cocaine, Heroin and IV Drugs Advance Directives: No Advance Directives Information Provided: Yes service: No Sexual orientation: Straight/Heterosexual Physical Exam Vital Signs: Vital Signs: Last Vital Signs Temp 97.4 F 05/23/21 00:15 Pulse 79 05/23/21 07:34 Resp 16 05/23/21 07:34 BP 108/54 L 05/23/21 07:34 Pulse Ox 94 05/23/21 07:34 Oxygen Flow Rate 3 05/23/21 00:15 BMI result Body Mass Index 35.9 Const: Other: Appearance: Alert. Patient, very anxious, has to be constantly reminded to go back to his bed Eyes: Pupils equal, round and reactive to light. ENT: Pharynx normal. Neck: Normal inspection. Neck supple. No lymph nodes noted. No crepitus CVS: Normal heart rate and rhythm. Pulses normal. Normal S1 and S2 Respiratory: No respiratory distress. Breath sounds normal. No Wheezing. No rales Abdomen: Soft and nontender. No rigidity. No distention. Skin: Skin warm and dry. Normal skin color. Normal skin turgor. Extremities: No lower extremity edema. No lower extremity edema. No Lacerations. No Rash Neuro: Ambulatory, cranial nerves 2-12 grossly intact Psych: Very confused, uncooperative Course Course Course Narrative: We attempted to redirect the patient several times. However patient became gradually more combative, uncooperative. Patient was given a dose of Benadryl, Ativan, Haldol. Patient is sleeping comfortably. Vitals stable. Physician at [facility] started at 01:[address] Sign out given to Dr Mendosa Discharge Plan Discharge Clinical Impression: Active substance abuse Patient Disposition: Still a Patient Prescriptions: No Action quetiapine 300 mg Tablet 300 mg PO BEDTIME Qty: 30 RF: 0 trazodone 50 mg Tablet 25 mg PO BEDTIME PRN (Reason: Insomnia) Qty: 30 RF: 0 quetiapine 100 mg Tablet 100 mg PO BID@0830,1330 Qty: 60 RF: 0 hydroxyzine HCl 25 mg Tablet 50 mg PO RQ4H PRN (Reason: Anxiety) Qty: 30 RF: 0 mirtazapine 15 mg Tablet 30 mg PO BEDTIME Qty: 60 RF: 0 oxycodone 5 mg Tablet 5 mg PO Q4H PRN (Reason: Pain, Severe (Pain Scale 7-10)) Qty: 6 RF: 0 buprenorphine-naloxone [Suboxone] 8-2 mg Film 1 film sublingual DAILY Qty: 7 RF: 0
[2021-05-22] MEDS: diphenhydrAMINE HCL 50 MG/ML VIAL IM (23:53)
[2021-05-22] MEDS: LORazepam 2 MG/ML VIAL IM (23:54)
--- NOTE | 2021-05-23 | ECG_ITS ---
Test Reason : MED CLEARANCE Blood Pressure : / mmHG Vent. Rate : 073 BPM Atrial Rate : 073 BPM P-R Int : 126 ms QRS Dur : 086 ms QT Int : 428 ms P-R-T Axes : 039 016 031 degrees QTc Int : 471 ms Normal sinus rhythm Nonspecific T wave changes in anterior leads. Abnormal ECG When compared with ECG of 10-APR-2020 15:02, Nonspecific T wave abnormality now evident in Anterior leads Referred By: Marybeth Hernandes Electronically Signed By:Chito Rivas
[2021-05-23 00:15] VITALS: BP 109/68; BP 152/92; PULSE 90; PULSE 93; RESP 18; TEMP 36.3; O2SAT 100; O2SAT 99; BMI 35.9
[2021-05-23] MEDS: Haloperidol Lactate 5 MG/ML VIAL IM (01:28)
--- NOTE | 2021-05-23 01:29 | PC.NURSE ---
upon arrival to ER pt was confused and manic, pt was informed per hospital policy that we get pt undressed and into gown, patient began rambling and asking the narrator do these look like track coyle , hemal been clean for three years , pt continued to ramble and security was called, narrator spoke with Dr. Perez and asked for a B52, meds were offered and accepted by pt, will continue to monitor
[2021-05-23 04:39] VITALS: BP 102/61; PULSE 89; RESP 16; O2SAT 100
[2021-05-23 07:34] VITALS: BP 108/54; PULSE 79; RESP 16; O2SAT 94
[2021-05-23 20:09] LABS: Amphetamine Screen Urine Not Detected (Not Detect); Barbiturates, Urine Not Detected (Not Detect); Benzodiazepines Screen Urine Not Detected (Not Detect); Cannabinoid Screen Urine POSITIVE (Not Detect); Cocaine Screen Urine POSITIVE (Not Detect); Fentanyl, urine POSITIVE (Not Detect); Opiate Screen Urine POSITIVE (Not Detect); Phencyclidine Screen Urine Not Detected (Not Detect)
[2021-05-23 22:08] LABS: COVID-19 Test Negative (Negative)
[2021-05-23 23:05] VITALS: BP 122/65; PULSE 85; RESP 18; TEMP 37.3; O2SAT 96
[2021-05-23 23:53] VITALS: BMI 33.0
--- NOTE | 2021-05-24 01:09 | PC.ADMIT ---
[place] [facility] [place] [facility] [place] [facility] [place] at 23:00pm via wheelchair. Pt. presents with poor eye-contact and refusal to engage with staff. Patient refuses to participate in the admission process at this time. He signs a 3-day notice up on Thursday, May 26, 2022. Pt. is [place] [facility] [place] [facility] following 3 overdoses in the last 24 hours which have required Narcan. Pt. was chemically restrained in [facility] [facility] [place] late 05/22/21 and early 05/23/21 due to confused manic behaviors. Patient has a history of legal involvement for possession of drugs, breaking and entering (Abandoned Building) and Operating Under the Influence. Patient tests positive for Fentanyl, Opiates, Cocaine, and Marijuana in [facility] ED. Pt. is well known to [facility] through several In-Patient stays and Detox admissions. Records indicate patient has been to detox around 10 times with last known detox admission in November 2013 at [facility] after which he went to [facility] and then [facility] and had his longest period of Sobriety being seven months. Patient was last admitted In-Patient at [facility] 09/03/2020. [facility] Diagnoses: F33.2- Major Depressive Disorder, F11.20- Opioid Use Disorder, F14.20 - Stimulant Use Disorder, F12.20 Cannabis use Disorder.
[2021-05-24 08:41] LABS: Estimated Average Glucose 100 mg/dL; Hemoglobin A1c % 5.1 %
[2021-05-24 08:54] LABS: Cholesterol 138 mg/dL; HDL Cholesterol 49 mg/dL; LDL Cholesterol Calculated 70 mg/dl; Magnesium 1.7 mg/dL (1.6-2.6); Triglycerides 99 mg/dL
[2021-05-24 09:14] LABS: Free T4 (Free Thyroxine) 1.01 ng/dL (0.71-1.85); Thyroid Stimulating Hormone 1.74 uIU/mL (0.32-4.0)
[2021-05-24 09:28] LABS: Folate 12.7 ng/mL (> or = 4.0); Vitamin B12 434 pg/mL (200-900)
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
--- NOTE | 2021-05-24 13:51 | PC.NURSE ---
pt milton he is a smoker but does not want NRT. states he already had he flu shot and it is not needed.
--- NOTE | 2021-05-24 13:54 | PC.NURSE ---
stes he is a smoker and does not want nrt. states he already had the flu vaccine elsewhere.
--- NOTE | 2021-05-25 10:22 | P.PNPSI_ITS ---
Subjective Subjective Date of Service: 05/25/21 Reason For Visit: Polysubstance Abuse Subjective Notes: 3 Day Interim History: Pt met with this senior grant writer and clinician Zachary. Pt denies any symptoms of depression, anxiety. Pt denies SI/HI. He reports OD on heroin not blanc icide attempt. Pt limited insight as to effects of substance in his life. Pt reports currently not motivated to start any kind of substance use treatment. He declines referrals for suboxone or methadone. He states he would like to go to longterm. We discussed safety- harm reduction, need for narcan. Review of Systems Review of Systems Yes Unobtainable due to mental condition Constitutional: Reports daytime sleepiness and Reports fatigue Eyes: Reports no additional eye complaints Reports system reviewed and no additional complaints, except as documented Cardiovascular: Denies chest pain, Denies chest pain with activity, Denies lightheadedness, Denies palpitations, Denies dyspnea and Denies dyspnea on exertion Respiratory: Denies dyspnea and Denies dyspnea on exertion Gastrointestinal: Denies constipation and Denies diarrhea Musculoskeletal: Reports no additional musculoskeletal complaints Endocrine: Reports fatigue and Denies palpitations Mental Status Exam Mental Status Exam Narrative: Appearance: casually groomed, fair hygiene in NAD Behavior:minimally cooperative psychomotor: no agitation or retardation noted Speech:clear, normal rate/rhythm/volume, minimally spontaneous due to sedation Thought process:linear Thought content:no overt signs of psychosis, wanting to leave soon Mood: fine, just want to get high Affect: brigther, non labile SI:denies HI:denies VH/AH:denies Delusions:denies Insight/judgment:poor x 2. Memory/cog: alert, oriented to place, month, day not situation Diagnostics Vital Signs (24Hr): Vital Signs - 24 hr 05/25/21 18:41 05/25/21 19:22 Temperature 96.3 F L 97.6 F Pulse Rate 71 71 Respiratory Rate 18 18 Blood Pressure 123/79 127/64 Pulse Oximetry 99 99 BMI result Body Mass Index 33.0 Medications Medications Current Medications Acetaminophen (Acetaminophen 325 Mg Tablet) 650 mg PO Q6H PRN PRN Reason: Headache/Pain Mild Scale (1-3) Al Hydroxide/Mg Hydroxide (Magnesium Hydrox/Alum Hydrox 30 Ml Oral.Susp) 30 ml PO Q6H PRN PRN Reason: Heartburn/Nausea Haloperidol (Haloperidol 5 Mg Tablet) 5 mg PO Q6H PRN PRN Reason: agitation Hydroxyzine HCl (Hydroxyzine Hcl 50 Mg Tablet) 50 mg PO Q6H PRN PRN Reason: Anxiety Lorazepam (Lorazepam 1 Mg Tablet) 1 mg PO Q6H PRN PRN Reason: agitation Magnesium Hydroxide (Milk Of Magnesia 30 Ml Oral.Susp) 30 ml PO DAILY PRN PRN Reason: Constipation Quetiapine Fumarate (Quetiapine Fumarate 100 Mg Tablet) 100 mg PO Q6H PRN PRN Reason: anxiety, agitation Trazodone HCl (Trazodone Hcl 50 Mg Tablet) 50 mg PO BEDTIME PRN PRN Reason: Insomnia Allergies Allergies Allergy/AdvReac Type Severity Reaction Status Date / Time No Known Allergies Allergy Verified 11/19/20 17:38 [No Known Allergies*] Assessment & Plan Assessment & Plan (1) Cocaine use disorder, severe, dependence: Status: Acute Code(s): F14.20 - Cocaine dependence, uncomplicated (2) MDD (major depressive disorder), recurrent, severe, with psychosis: Status: Acute Code(s): F33.3 - Major depressive disorder, recurrent, severe with psychotic symptoms (3) Opioid use disorder, severe, dependence: Status: Acute Code(s): F11.20 - Opioid dependence, uncomplicated Assessment and Plan: Mr. Junior is a 36 year-old male with hx of opioid use disorder, cocaine use disorder and MDD with psychosis versus substance induced psychosis who was brought to [facility] ED initially on 05/21 after he was found unresponsive, given 6 mg of narcan with good efect. At the time he declined referrals for substance use or mental health. He was brought two more times on 05/22, sedated but no narcan given. Utox on 05/23 positive for opioid, fentanyl, cocaine, cannabinoids. Per records and interview today pt has not expressed SI or HI, no overt psychosis of psychosis, although currently he is sedated. At this point, he is declining referrals for substance use or psychiatric treatment. Pt reports he does not have stable place to live but states he would go to longterm. PLAN: 1. Admit to , 3 day notice, 15 minutes checks 2. currently declines any medications 3. Obtain collateral information 4. Aftercare planning I spent minutes with the patient and/or on the patient floor today, greater than?50% of which was spent counseling/coordinating care. Reason for contiued inpatient stay Substantial Risk for: stable for discharge
[2021-05-25 18:41] VITALS: BP 123/79; PULSE 71; RESP 18; TEMP 35.7; O2SAT 99
[2021-05-25 19:22] VITALS: BP 127/64; PULSE 71; RESP 18; TEMP 36.4; O2SAT 99
--- NOTE | 2021-05-26 10:32 | P.DS_ITS ---
DS: Providers Provider Date of Service: 05/26/21 Date of admission: 05/23/21 22:18 Primary care physician: Unknown Physician DS: Diagnosis Discharge Diagnosis (1) Cocaine use disorder, severe, dependence: Status: Acute (2) MDD (major depressive disorder), recurrent, severe, with psychosis: Status: Acute (3) Opioid use disorder, severe, dependence: Status: Acute Mental Status Exam Mental Status Exam Narrative: Narrative:?Appearance: casually groomed, fair hygiene in NAD Behavior:minimally cooperative psychomotor: no agitation or retardation noted Speech:clear, normal rate/rhythm/volume, minimally spontaneous due to sedation Thought process:linear Thought content:no overt signs of psychosis, wanting to leave soon Mood: fine, just want to get high Affect: brighter, non labile SI:denies HI:denies VH/AH:denies Delusions:denies Insight/judgment:poor x 2. Memory/cog: alert, oriented to place, month, day not situation Data Data Completed and Pending Completed studies during hospitalization [Text1]: 05/23/21 05/23/21 05/24/21 19:27 21:42 08:22 Estimat Average Glucose 100 Hemoglobin A1c % 5.1 Magnesium Triglycerides Cholesterol LDL Cholesterol, Calc HDL Cholesterol Vitamin B12 Folate TSH Free T4 Urine Opiates Screen POSITIVE H Urine Fentanyl Screen POSITIVE H Ur Barbiturates Screen Not Detected Ur Phencyclidine Scrn Not Detected Ur Amphetamines Screen Not Detected U Benzodiazepines Scrn Not Detected Urine Cocaine Screen POSITIVE H U Marijuana (THC) Screen POSITIVE H COVID-19 ([facility]) Negative COVID-19 Clin Com See Note 05/24/21 05/24/21 08:22 08:22 Estimat Average Glucose Hemoglobin A1c % Magnesium 1.7 Triglycerides 99 Cholesterol 138 LDL Cholesterol, Calc 70 HDL Cholesterol 49 Vitamin B12 434 Folate 12.7 TSH 1.74 Free T4 1.01 Urine Opiates Screen Urine Fentanyl Screen Ur Barbiturates Screen Ur Phencyclidine Scrn Ur Amphetamines Screen U Benzodiazepines Scrn Urine Cocaine Screen U Marijuana (THC) Screen COVID-19 ([facility]) COVID-19 Clin Com DS: Summary Hospital Course Hospital Course: Subjective Notes: Yates Warning and 3 Day Narrative: Mr. Junior is a 36 year-old male with hx of opioid use disorder, cocaine use who was [place] brought [place] [facility] [place] [place]21 after he found sedated and confused, did receive 6 mg of narcan with good effect but then asked to be discharged. He was brought in to ED on 05/22 twice due to bystanders calling EMS as pt appeared sedated but note that no narcan was administered subsequently. On 05/23 his utox was positive for fentanyl, cocaine, opioid, cannabinoids. Pt reported that he was relased from retirement on 05/21 after 7 months and relapsed on one bag of IV heroin. Mr. Junior is known to through previous admission due to depressed mood, AH in setting of substance use. He was last admitted to back in 04/2020. On the unit, pt very somnolent, minimally cooperative with interview. This underwriter went to his room several times before pt agreed to briefly talk as he reported feeling very tired. When asked about circumstances of admission, pt states I don't know why I am here, you know. Pt does admit that he was recently release from care home. He reports his memory is of past few days is poor. He does report that he was brought via EMS about 3 times to [facility] [place] [place] He denies that he ever reported suicidal or homicidal ideation. He denies VH/AH. When asked about depression or anxiety, pt denies. Pt reports he is currently homeless and does not want to be referred to residential substance use treatment. He reports he would be okay with going to long-term. Pt used to be on suboxone but states he is not interested at this point on MAT. He denies pain.? Past Psychiatric History: Inpatient: multiple, last 04/2020 OP: none Past medication trials: olanzapine Medical Evaluation Reviewed: Yes HOSPITAL COURSE Mr. Junior was admitted on CV and placed on 15 minutes checks for safety. Pt signed a 3 day notice. On the unit, Pt denied suicidal or homicidal ideation. Pt reported recently released from care home, and accidental OD on heroin. He reported craving heroin and not having any intentions at this time to engage in substance use treatment. We discussed at length harm reduction including carrying with him narcan. He declined medications for depression and anxiety. He did not appear internally preoccupied. There were no incidences of disruptive behaviors nor use of restraint. We were not able to contact any collateral information as pt declined and no contact was identified. Pt given narcan at time of discharge. Status at Discharge Cognitive/behavioral status at discharge: Pt is bright, non labile. No SI/HI. No signs of aggression towards self or others. No signs of psychosis or delusions. Pt with minimal insight on use of substance and risk of accidental overdose. He agreed to take narcan with him. Functional status at discharge: independent ambulation Overall status at discharge: patient is progressing back to baseline Time Spent with Patient Time attestation: Total time spent providing and/or coordinating discharge services: Discharge Plan Discharge Patient Disposition: Home, Self-Care Discharge Diagnosis: Opioid Use Disorder Cocaine Use Disorder Mdd, recurrent, moderate Referrals: [facility] [Other] - 05/26/21 3:00 pm ([place] for [facility] [facility] [place] [facility] [Other] (Walk in if needed) Discharge Medications: Discontinued quetiapine 300 mg Tablet 300 mg PO BEDTIME Qty: 30 RF: 0 trazodone 50 mg Tablet 25 mg PO BEDTIME PRN (Reason: Insomnia) Qty: 30 RF: 0 quetiapine 100 mg Tablet 100 mg PO BID@0830,1330 Qty: 60 RF: 0 hydroxyzine HCl 25 mg Tablet 50 mg PO RQ4H PRN (Reason: Anxiety) Qty: 30 RF: 0 mirtazapine 15 mg Tablet 30 mg PO BEDTIME Qty: 60 RF: 0 oxycodone 5 mg Tablet 5 mg PO Q4H PRN (Reason: Pain, Severe (Pain Scale 7-10)) Qty: 6 RF: 0 buprenorphine-naloxone [Suboxone] 8-2 mg Film 1 film sublingual DAILY Qty: 7 RF: 0 Discharge Orders: Discharge Order (Routine); Ordered 05/26/21 Ordered By: Caridad Patel Diet: regular diet Activity on Discharge: As tolerated Stand Alone Forms: Patient Portal Discharge page, Community Support Care Plan Goals: 1. Maintain mood 2. No SI/HI 3. Harm reduction- take home narcan Health Concerns: 1. Follow up with PCP for routine care. Pt declined any appointments scheduled on his behave. Plan of Treatment: 1. HARM reduction- take home narcan. Pt declined referrals for substance use treatment or psychiatric treatment. Assessment: Pt with bright affect. No signs of suicidal or homicidal ideation. No signs of psychosis. Pt denies SI/HI. Pt minimal insight into substance use. Admits to not being ready to engage in substance use treatment. We discussed at length harm reduction- narcan take home. Pt declined referrals for MAT. Discharge Date/Time: 05/26/21 14:47
[2021-05-26] MEDS: Naloxone HCl Nasal TAKE HOME 4 MG SPRAY NOSTRILALT (14:20)
== END 2021-05-26 14:47 | disposition home or self-care (01) | DRG 885 ==
LOC: HO.ED 05-23 22:23 → HO.PM5 05-23 22:28
PROVIDERS: Admitting Provider Registered Nurse; Emergency Provider Emergency Medicine; Visit Provider Social Worker
DX: F33.3 Major depressive disorder, recurrent, severe with psychotic symptoms (principal); F14.20 Cocaine dependence, uncomplicated; F11.20 Opioid dependence, uncomplicated; Z20.822 Contact with and (suspected) exposure to COVID-19; Z59.02 Unsheltered homelessness
CPT/HCPCS: 36415; 80061; 80307; 82607; 82746; 83036; 83735; 84439; 84443; 87635; 93005; 99285; J1200; J2060

== ENCOUNTER 2021-05-26 16:09 | Emergency (ER) | payer OTHER, SELFPAY ==
--- NOTE | 2021-05-26 16:20 | ED.OVERDOSE ---
HPI - Overdose General Chief Complaint: Overdose Stated Complaint: od Time Seen by Provider: 05/26/21 16:18 Source: patient and EMS Mode of arrival: EMS Limitations: no limitations History of Present Illness HPI Narrative: 36-year-old male presents for overdose. Received 4 mg of Narcan in the field. At the time of presentation patient is alert oriented x4. complaint: accidental overdose Onset (ago): hour(s) (Within the hour of arrival) Context: Intentional Overdose: drug/ETOH problems Context: Accidental Overdose: wanted to get high Treatments Prior to Arrival: narcan Related Data Allergies Allergy/AdvReac Type Severity Reaction Status Date / Time No Known Allergies Allergy Verified 11/19/20 17:38 [No Known Allergies*] Review of Systems Review of Systems: Constitutional: No Fever, No Chills ENT/Mouth: No sore throat, No Rhinorrhea Eyes: No Eye Pain, No Swelling, No Redness Cardiovascular: No Chest Pain, No SOB Respiratory: No Cough, No Sputum Gastrointestinal: No Nausea, No Vomiting, No Diarrhea, No abdominal Pain Genitourinary: No Dysuria, No Hematuria Musculoskeletal: No joint pain, No Myalgias, No Joint Swelling Skin: No Skin Lesions, No rash Neuro: No Weakness, No Numbness, No Loss of Consciousness, No Dizziness, No Headache Psych: Positive overdose, No Anxiety, No Depression, No SI/HI/AH/VH Heme/Lymph: No Bruising, No Bleeding,No Lymphadenopathy Endocrine: No Polyuria, No Polydipsia Yes all other systems are reviewed and are negative PMFSH Past Medical History Attestation statement: The following information was validated with the patient. Source: old records reviewed Medical History HCV (hepatitis C virus) IVDU (intravenous drug user) Major depressive disorder, recurrent severe without psychotic features [place] (myocardial infarction) Normocytic anemia Opiate addiction Polysubstance abuse Surgical History History of incision and drainage S/P split thickness skin graft Family History Family History Sister Schizophrenia Social History Social History Household Members: None Housing: Homeless Do you presently have visiting nurse or other home services: No Unable to assess alcohol history related to: Refusing to respond Alcohol intake: current Alcohol intake frequency: holidays/special occasions only Patient Tobacco Use Status: Tobacco use Unknown Cigarette Packs Per Day: 1 Cigarettes Per Day: 20.0 Years Smoked: 15 Second Hand Smoke Exposure: Yes Substance Use Type: Crack/Cocaine, Heroin and IV Drugs Advance Directives: No Advance Directives Information Provided: Yes service: No Sexual orientation: Decline to Answer Physical Exam Vital Signs: Vital Signs: Last Vital Signs Temp 99.1 F 05/26/21 17:00 Pulse 87 05/26/21 17:00 Resp 16 05/26/21 17:00 BP 124/60 05/26/21 17:00 Pulse Ox 95 05/26/21 17:00 BMI result Body Mass Index 29.5 Appearance: Alert. Oriented X3. No acute distress. Speaking in complete sentences. Eyes: Pupils equal, round and reactive to light. ENT: Pharynx normal. Able to manage secretions. Neck: Normal inspection. Neck supple. CVS: Normal heart rate and rhythm. Pulses normal. Respiratory: No respiratory distress. Lung sounds clear to auscultation all lobes. Even unlabored respirations. Abdomen: Soft and nontender. Skin: Skin warm and dry. Normal skin color. Normal skin turgor. Extremities: No lower extremity edema. Gait well-balanced well coordinated. Neuro: No motor deficit. No sensory deficit. Cranial nerves 2-12 intact. Course Course Course Narrative: 36-year-old male presents via EMS for heroin overdose. Overdose was accidental. Was given Narcan on the scene. Patient is not interested in detox. Is requesting to leave. Patient advised that he must stay for approximately 2 hours for monitoring. Patient upset but agrees to plan. Patient is not suicidal or homicidal. Has a wound to his right dorsal aspect of the hand. Does not appear to be infected. 4:30 p.m. discussion with friends of the homeless, patient has a black listed for multiple shelters. Patient is not interested in detox. school standards coach and discussed the plan, patient is unreceptive. 5:38 p.m. patient is alert oriented x4, answering questions politely and appropriately. Gait well-balanced well coordinated. Even unlabored respirations. O2 sat remains above 95% on room air. Plan of care is for patient to present to the living room. Has declined detox. Patient verbalized understanding of and agrees to plan of care to discharge. Consultations Consultation #1: school standards coach Time: 16:30 MDM - Overdose Differential Diagnosis Differential diagnosis: Likely drug overdose Medical Records Attestation: I reviewed the patient's medical records. Lab Data Attestation: I reviewed the patient's lab results. Discharge Plan Discharge Clinical Impression: Opioid use disorder, Active substance abuse Patient Disposition: Home, Self-Care Instructions: Narcotic Use Disorder (ED) Additional Instructions: Please follow-up with the living room. Please consider detox. Thank you for choosing this emergency department for evaluation. Please follow-up with primary care physician as needed. Return to the emergency department for any new, concerning, or worsening symptoms. Interventions: ED Discharge Assessment Last Done: 05/26/21 18:07 Discharge Date/Time: 05/26/21 18:22
[2021-05-26 17:00] VITALS: BP 124/60; BP 140/72; PULSE 87; PULSE 90; RESP 16; TEMP 37.3; O2SAT 95; O2SAT 99; BMI 29.5
[2021-05-26] MEDS: Ibuprofen 600 MG TABLET PO (17:43)
[2021-05-26] MEDS: Naloxone HCl Nasal TAKE HOME 4 MG SPRAY NOSTRILALT (17:47)
--- NOTE | 2021-05-26 18:12 | MHC.RECOVSUP ---
Recovery Support note: Patient is a 36 year old Citizen Of [place] speaking male who presented to [facility] after an accidental overdose. Patient discharged from earlier today. Patient is known to this marketing underwriter from previous consultations. Patient declines ATS and expresses interest in going to a intermediate. swimming coach met with patient and attempted to secure intermediate bed. No beds available at this time. Patient continues to deny interest in ATS. Patient declines offer for SUDE. This marketing underwriter spoke with staff at the Living Room and they have staffing for a possible overnight. Discussed Living Room with patient. He has been there before. Patient agreeable to going to the Living Room. Discussed case with patient's RN and ED provider.
== END 2021-05-26 18:22 | disposition home or self-care (01) ==
PROVIDERS: Emergency Provider Internal Medicine
DX: T40.1X1A Poisoning by heroin, accidental (unintentional), initial encounter (principal); F11.20 Opioid dependence, uncomplicated; Y92.9 Unspecified place or not applicable; Z59.02 Unsheltered homelessness
CPT/HCPCS: 99283

== ENCOUNTER 2021-05-29 19:47 | Emergency (ER) | payer OTHER, SELFPAY ==
[2021-05-29 19:56] VITALS: BP 130/70; PULSE 121; RESP 16; TEMP 36.3; O2SAT 95; BMI 28.0
--- NOTE | 2021-05-29 20:25 | ED_ITS ---
HPI - General Adult General Chief complaint: ETOH/Substance Use Stated complaint: substance use Time Seen by Provider: 05/29/21 20:25 Source: patient and EMS Mode of arrival: EMS Limitations: no limitations History of Present Illness HPI narrative: 36-year-old male with a history of IV drug abuser, admitted to using multiple bags of cocaine with max of heroin, patient took the ambulance from [place] to [place] coming to the hospital seeking detox. Patient did not require Narcan by EMS, patient in the ED is awake and alert and oriented. Patient declined any SI or HI, no hallucination, patient now would like to go home does a 1 await for evaluation for detox. Patient has money to commute back [facility]. Related Data Allergies Allergy/AdvReac Type Severity Reaction Status Date / Time No Known Allergies Allergy Verified 11/19/20 17:38 [No Known Allergies*] Review of Systems Review of Systems: All other systems are reviewed and are negative Constitutional: Reports as per HPI and Reports no additional constitutional complaints Eyes: Reports as per HPI and Reports no additional eye complaints Reports system reviewed and no additional complaints, except as documented Cardiovascular: Reports as per HPI and Reports no additional cardiovascular complaints Respiratory: Reports as per HPI and Reports no additional respiratory complaints Gastrointestinal: Reports as per HPI and Reports no additional gastrointestinal complaints Genitourinary: Reports no additional female genitourinary complaints Musculoskeletal: Reports no additional musculoskeletal complaints Skin/Breast: Reports system reviewed and no additional complaints, except as docu Psychiatric: Reports no additional psychiatric complaints Endocrine: Reports no additional endocrine complaints Hematologic/Lymphatic: Reports no additional hematologic/lymphatic complaints Allergic/Immunologic: Reports no additional allergic/immunologic complaints Reports system reviewed and no additional complaints, except as documented and Reports Abnormal speech present [facility] Past Medical History Medical History HCV (hepatitis C virus) IVDU (intravenous drug user) Major depressive disorder, recurrent severe without psychotic features [place] (myocardial infarction) Normocytic anemia Opiate addiction Polysubstance abuse Surgical History History of incision and drainage S/P split thickness skin graft Family History Family History Sister Schizophrenia Social History Social History Household Members: None Housing: Homeless Do you presently have visiting nurse or other home services: No Unable to assess alcohol history related to: Refusing to respond Alcohol intake: current Alcohol intake frequency: holidays/special occasions only Patient Tobacco Use Status: Tobacco use Unknown Cigarette Packs Per Day: 1 Cigarettes Per Day: 20.0 Years Smoked: 15 Second Hand Smoke Exposure: Yes Substance Use Type: Crack/Cocaine, Heroin and IV Drugs Advance Directives: No Advance Directives Information Provided: Yes service: No Sexual orientation: Decline to Answer Physical Exam Vital Signs: Vital Signs: Last Vital Signs Temp 97.3 F 05/29/21 19:56 Pulse 121 H 05/29/21 19:56 Resp 16 05/29/21 19:56 BP 130/70 05/29/21 19:56 Pulse Ox 95 05/29/21 19:56 BMI result Body Mass Index 28.0 vital signs have been reviewed as appeared to be correct. Blood pressure normal. Heart rate Elevated. Respiration rate normal. Temperature normal. Oxygen saturation normal. Appearance: Alert. Oriented X3. No acute distress. Head: Normal external exam. Normocephalic. Atraumatic. No [place] signs noted. No raccoon eyes noted Eyes: PERRLA. EOMI. Conjunctiva and sclera normal. Eyelids normal. ENT: TM's Normal. Pharynx normal. Uvula midline. Moist mucous membranes. No trismus noted. No drooling noted. No muffled voice noted. Neck: Normal inspection. Neck supple. FROM. No adenopathy. Thyroid Normal. No meningeal signs. No neck mass noted. CVS: Normal heart rate and rhythm. Heart sound normal. No murmurs noted. Pulses normal throughout. Respiratory: No respiratory distress. Painless inspiration. Breath sounds normal. No wheezes/rales/rhonchi noted. Chest nontender. No accessory muscle usage noted or decreased air movement noted. Abdomen: Soft and nontender. Bowel sounds normal in all 4 quadrants. No distention noted. No organomegaly noted. No visible injury noted. Back: No CVA tenderness. Full range of motion noted. Skin: Skin warm and dry. Normal skin color. Normal skin turgor. No rashes/lesions/lacerations noted. Extremities: No lower extremity edema. Extremities exhibit normal range of motion. Extremities nontender. Neuro: Oriented X 3. Cranial nerve exam: II-XII are grossly intact No motor deficit. No sensory deficit. Reflexes normal. Course Course Course Narrative: assessment and plan. 36-year-old male IV drug abuser came in after used heroin mixed with cocaine, patient has no psych symptoms, no SI, no HI, no hallucination. Patient initially was seeking for detox but now he is not and he would like to go back to penit[facility], patient is not intending to use any drugs tonight. Discharge Plan Discharge Clinical Impression: Cocaine use disorder, severe, dependence, Opioid use disorder, severe, dependence Patient Disposition: Home, Self-Care Instructions: Polysubstance Abuse (ED) Referrals: Physician,Nonstaff [Primary Care Provider] - 2 days
== END 2021-05-29 20:34 | disposition home or self-care (01) ==
PROVIDERS: Emergency Provider Emergency Medicine
DX: F11.20 Opioid dependence, uncomplicated (principal); F14.20 Cocaine dependence, uncomplicated; F19.10 Other psychoactive substance abuse, uncomplicated; B19.20 Unspecified viral hepatitis C without hepatic coma; I25.2 Old myocardial infarction; F17.200 Nicotine dependence, unspecified, uncomplicated
CPT/HCPCS: 99283

== ENCOUNTER 2021-05-30 10:44 | Emergency (ER) | payer OTHER, SELFPAY ==
--- NOTE | 2021-05-30 10:54 | ED_ITS ---
HPI - Overdose General Chief Complaint: Overdose Stated Complaint: overdose Time Seen by Provider: 05/30/21 10:53 Source: patient Mode of arrival: ambulatory Limitations: no limitations History of Present Illness HPI Narrative: Patient shot up heroine went unresponsive and needed narcan by EMS. patient denies being homicidal, states just a few cuts. Patient does not want detox. patient found outside unresponsive. MD complaint: accidental overdose Onset (ago): minute(s) Context: Accidental Overdose: wanted to get high Related Data Allergies Allergy/AdvReac Type Severity Reaction Status Date / Time No Known Allergies Allergy Verified 11/19/20 17:38 [No Known Allergies*] Review of Systems Constitutional: Constitutional: Reports no additional constitutional compla ints Eyes: Eyes: Reports no additional eye complaints ENT: Denies dizziness Cardiovascular: Cardiovascular: Reports no additional cardiovascular complaints Respiratory: Respiratory: Reports as per HPI Gastrointestinal: Gastrointestinal: Reports no additional gastrointestinal complaints Musculoskeletal: Musculoskeletal: Reports no additional musculoskeletal complaints Integumentary/Breasts: Skin/Breast: Denies rash Neurologic: Reports system reviewed and no additional complaints, except as documented, Denies dizziness and Denies Sensory deficit (Neuro) Psychiatric: Psychiatric: Denies anxiety [facility] Past Medical History Medical History HCV (hepatitis C virus) IVDU (intravenous drug user) Major depressive disorder, recurrent severe without psychotic features [place] (myocardial infarction) Normocytic anemia Opiate addiction Polysubstance abuse Surgical History History of incision and drainage S/P split thickness skin graft Family History Family History Sister Schizophrenia Social History Social History Household Members: None Housing: Homeless Do you presently have visiting nurse or other home services: No Unable to assess alcohol history related to: Refusing to respond Alcohol intake: current Alcohol intake frequency: holidays/special occasions only Patient Tobacco Use Status: Tobacco use Unknown Cigarette Packs Per Day: 1 Cigarettes Per Day: 20.0 Years Smoked: 15 Second Hand Smoke Exposure: Yes Substance Use Type: Crack/Cocaine, Heroin and IV Drugs Advance Directives: No Advance Directives Information Provided: No service: No Sexual orientation: Decline to Answer Physical Exam Vital Signs: Vital Signs: Last Vital Signs Resp 18 05/30/21 11:48 BMI result Body Mass Index 33.4 Const: Other: unkept male, dishevled, walking around Nutritional Appearance: average body habitus Orientation/consciousness: oriented to person and patient oriented x3 Limitations: no limitations HENMT: Head: Yes normal to inspection Ears: external ears normal General nose exam: Normal external nose present Mouth: Normal oral and palatal mucosa present and oropharynx normal Throat: Yes posterior oropharynx normal Eyes: General: appearance normal, both eyes and all related structures Neck: Other: supple Neck: Yes normal visual inspection Chest: Chest palpation & inspection: normal inspection of the chest Resp: Auscultation: clear to auscultation bilaterally Cardio: Jugular venous distension: no JVD Rate: regular rate Rhythm: regular rhythm Heart sounds: S1 normal heart sound present and S2 normal heart sound present GI: Inspection: Yes normal to inspection Palpation (GI): Soft to palpation, nontender and No hepatosplenomegaly present Auscultation: normal bowel sounds : General: Yes no CVA tenderness Back/Spine/Pelvis: Back: no CVA tenderness Skin: Other: diffuse abrasions Neuro: General: oriented to person and patient oriented x3 Cranial nerves: Yes CN's II-XII intact bilaterally Motor exam (neuro): 5/5 motor strength present throughout Sensory Exam: No Sensory deficit (Neuro) Extrem: General: Yes normal to inspection Psych: Appearance: grossly normal Course Reevaluation(s) Reevaluation #1: patient does not want to stay will try and observe for as long as he is willing to stay Time: 10:58 Discharge Plan Discharge Clinical Impression: Drug overdose Patient Disposition: Elopement Interventions: ED Discharge Assessment Last Done: 05/30/21 11:53 Discharge Date/Time: 05/30/21 11:54
[2021-05-30 11:48] VITALS: BP 130/70; PULSE 70; RESP 18; O2SAT 99; BMI 33.4
== END 2021-05-30 11:54 | disposition left against medical advice (07) ==
PROVIDERS: Emergency Provider Emergency Medicine
DX: T40.1X1A Poisoning by heroin, accidental (unintentional), initial encounter (principal); R40.4 Transient alteration of awareness; Y92.410 Unspecified street and highway as the place of occurrence of the external cause; F11.20 Opioid dependence, uncomplicated; F14.20 Cocaine dependence, uncomplicated
CPT/HCPCS: 99283

== ENCOUNTER 2021-05-30 16:27 | Emergency (ER) | payer OTHER, SELFPAY ==
--- NOTE | 2021-05-30 16:33 | ED_ITS ---
HPI - Overdose General Chief Complaint: Overdose Stated Complaint: od Time Seen by Provider: 05/30/21 16:32 Source: patient Mode of arrival: EMS Limitations: no limitations History of Present Illness HPI Narrative: 36-year-old male past medical history significant for opiate use disorder (IVDA), hepatitis C, major depression, cocaine use, presents to the emergency department for the 2nd time in 1 day for a heroin overdose. Patient tells me after he left the hospital he injected 1 bag of heroin, he tells me that they found him next a dumpster and he reports having a few cuts to his hands bilaterally. He tells me that he does not detox but he knows he needs to stop. He was given 4 mg of Narcan on by 1st responders, and he was found down and unresponsive by a dumpster. Patient has no other complaints at this time. He denies chest pain, shortness of breath, fevers, chills, nausea, vomiting, abdominal pain, headache, dizziness, vision changes. He denies SI/HI MD complaint: accidental overdose Onset (ago): minute(s) (20) Intent: unknown How Overdose Was Discovered: other (first responders ) Context: Accidental Overdose: wanted to get high Treatments Prior to Arrival: none Related Data Allergies Allergy/AdvReac Type Severity Reaction Status Date / Time No Known Allergies Allergy Verified 11/19/20 17:38 [No Known Allergies*] Review of Systems Review of Systems: Constitutional : No Fever, No Chills ENT/Mouth : No sore throat, No Rhinorrhea Eyes: No Eye Pain, No Swelling, No Redness Cardiovascular : No Chest Pain, No SOB Respiratory : No Cough, No Sputum Gastrointestinal : No Nausea, No Vomiting, No Diarrhea, No abdominal Pain Genitourinary : No Dysuria, No Hematuria Musculoskeletal : No joint pain, No Myalgias, No Joint Swelling Skin : + Skin Lesions, No rash Neuro : No Weakness, No Numbness Psych : No Anxiety, No Depression, No SI/HI/AH/VH Heme/Lymph: No Bruising, No Bleeding Endocrine : No Polyuria, No Polydipsia All other systems reviewed and are negative Yes all other systems are reviewed and are negative PMFSH Past Medical History Attestation statement: The following information was validated with the patient. Source: old records reviewed and nursing notes reviewed Medical History HCV (hepatitis C virus) IVDU (intravenous drug user) Major depressive disorder, recurrent severe without psychotic features [place] (myocardial infarction) Normocytic anemia Opiate addiction Polysubstance abuse Surgical History History of incision and drainage S/P split thickness skin graft Family History Family History Sister Schizophrenia Social History Social History Household Members: None Housing: Homeless Do you presently have visiting nurse or other home services: No Unable to assess alcohol history related to: Refusing to respond Alcohol intake: current Alcohol intake frequency: holidays/special occasions only Patient Tobacco Use Status: Tobacco use Unknown Cigarette Packs Per Day: 1 Cigarettes Per Day: 20.0 Years Smoked: 15 Second Hand Smoke Exposure: Yes Substance Use Type: Crack/Cocaine, Heroin and IV Drugs Advance Directives: No Advance Directives Information Provided: No service: No Sexual orientation: Decline to Answer Physical Exam Vital Signs: Vital Signs: Last Vital Signs Resp 14 05/30/21 16:55 Pulse Ox 97 05/30/21 16:55 BMI result Body Mass Index 33.4 VSS Appearance: Alert.? Oriented X3.? No acute distress.? Head: Normocephalic, atraumatic, no step-offs or deformities Eyes: Pupils equal, round and reactive to light.? ENT: Pharynx normal.? Neck: Normal inspection.? Neck supple.? CVS: Normal heart rate and rhythm.? Pulses normal.? Respiratory: No respiratory distress.? Breath sounds normal.? Abdomen: Soft and nontender.? Skin: Skin warm and dry.? Normal skin color.? Normal skin turgor.? + abrasions to bilateral hands. Extremities: No lower extremity edema.? No calf ttp. 5/5 strength to bilateral upper and lower extremities Back: No midline tenderness, no C-spine tenderness, full range of motion, no CVA tenderness bilaterally Neuro: Oriented X 3.? No motor deficit.? No sensory deficit. Course Reevaluation(s) Reevaluation #1: Patient again walked out of the emergency department, he spoke to a high school football coach, who offered him resources for detox however patient again eloped. Time: 17:33 MDM - Overdose MDM Narrative Medical decision making narrative: [id number] 36 YO M pmhx opiate use disorder (IVDA), hep C, MDD, cocaine use, presents to the ED for the 2nd time in 1 day for a heroin overdose. Just prior to his arival used 1 bag of heroin IV, given 4 mg of narcan by first responders. Denies SI/HI Upon physical examination patient appears well, is in no acute distress. Vital signs are stable. Lungs clear. Regular rate and rhythm. Abdomen soft nontender nondistended. No focal neuro deficits. Pinpoint pupils. There are small abrasions noted to bilateral hands. Plan at this time is to observe patient, Narcan is not needed at this time as patient is saturating well on room air, and has a normal respiratory rate. Will continue to monitor. Medical Records Attestation: I reviewed the patient's medical records. Lab Data Attestation: I reviewed the patient's lab results. Critical Care Time Critical Care Time Critical Care Time: No Discharge Plan Discharge Clinical Impression: Opioid use disorder, Drug overdose, Opioid use disorder, severe, dependence Patient Disposition: Elopement Instructions: Opioid Use Disorder (ED) Additional Instructions: Take your medications as prescribed. Follow-up with your primary care provider this week. Return to the emergency department with new or worsening symptoms. In case of emergency call 911
[2021-05-30 16:55] VITALS: BP 110/78; RESP 14; O2SAT 95; O2SAT 97; BMI 33.4
--- NOTE | 2021-05-30 17:39 | MHC.RECOVSUP ---
Met with Pt. he stated that he will think about detox Was just informed that the Pt. just eloped ..
== END 2021-05-30 17:46 | disposition left against medical advice (07) ==
PROVIDERS: Emergency Provider Internal Medicine
DX: T40.1X1A Poisoning by heroin, accidental (unintentional), initial encounter (principal); R40.4 Transient alteration of awareness; Y92.488 Other paved roadways as the place of occurrence of the external cause; F11.20 Opioid dependence, uncomplicated; F14.20 Cocaine dependence, uncomplicated
CPT/HCPCS: 99283